=== PATIENT | female | born 1940 | race Caucasian/White ===

== ENCOUNTER → 2023-09-04 10:12 | Outpatient (REF) | payer MEDICARE, OTHER, SELFPAY | LOC: WOUND 10:12 | PROVIDERS: ATTENDING PHYSICIAN Surgery; REFERRING PHYSICIAN Internal Medicine Geriatric Medicine | DX: I87.311 Chronic venous hypertension (idiopathic) with ulcer of right lower extremity (principal); L97.812 Non-pressure chronic ulcer of other part of right lower leg with fat layer exposed; I87.2 Venous insufficiency (chronic) (peripheral); I48.19 Other persistent atrial fibrillation; Z86.73 Personal history of transient ischemic attack (TIA), and cerebral infarction without residual deficits; Z79.01 Long term (current) use of anticoagulants; R73.03 Prediabetes; N18.31 Chronic kidney disease, stage 3a; I77.0 Arteriovenous fistula, acquired; I50.32 Chronic diastolic (congestive) heart failure; I13.0 Hypertensive heart and chronic kidney disease with heart failure and stage 1 through stage 4 chronic kidney disease, or unspecified chronic kidney disease | CPT/HCPCS: 97597 ==

== ENCOUNTER → 2023-09-14 12:55 | Outpatient (REF) | payer MEDICARE, OTHER, SELFPAY | LOC: RAD 12:55 | PROVIDERS: ATTENDING PHYSICIAN Nurse Practitioner Family; FAMILY PHYSICIAN Internal Medicine Geriatric Medicine | DX: M79.604 Pain in right leg (principal) | CPT/HCPCS: 93922; 93925; 93970 ==

== ENCOUNTER → 2023-09-18 10:54 | Outpatient (REF) | payer MEDICARE, OTHER, SELFPAY | LOC: WOUND 10:54 | PROVIDERS: ATTENDING PHYSICIAN Surgery; FAMILY PHYSICIAN Internal Medicine Geriatric Medicine | DX: L97.812 Non-pressure chronic ulcer of other part of right lower leg with fat layer exposed (principal); L97.822 Non-pressure chronic ulcer of other part of left lower leg with fat layer exposed; L03.116 Cellulitis of left lower limb; I48.19 Other persistent atrial fibrillation; Z86.73 Personal history of transient ischemic attack (TIA), and cerebral infarction without residual deficits; Z79.01 Long term (current) use of anticoagulants; R73.03 Prediabetes; N18.31 Chronic kidney disease, stage 3a; I50.32 Chronic diastolic (congestive) heart failure; I12.9 Hypertensive chronic kidney disease with stage 1 through stage 4 chronic kidney disease, or unspecified chronic kidney disease | CPT/HCPCS: 11042 ==

== ENCOUNTER → 2023-10-02 09:52 | Outpatient (REF) | payer MEDICARE, OTHER, SELFPAY | LOC: WOUND 09:52 | PROVIDERS: ATTENDING PHYSICIAN Surgery; FAMILY PHYSICIAN Internal Medicine Geriatric Medicine | DX: L03.116 Cellulitis of left lower limb (principal); L97.812 Non-pressure chronic ulcer of other part of right lower leg with fat layer exposed; L97.822 Non-pressure chronic ulcer of other part of left lower leg with fat layer exposed; I48.19 Other persistent atrial fibrillation; Z86.73 Personal history of transient ischemic attack (TIA), and cerebral infarction without residual deficits; Z79.01 Long term (current) use of anticoagulants; R73.03 Prediabetes; N18.31 Chronic kidney disease, stage 3a; I77.0 Arteriovenous fistula, acquired; I50.32 Chronic diastolic (congestive) heart failure; I12.9 Hypertensive chronic kidney disease with stage 1 through stage 4 chronic kidney disease, or unspecified chronic kidney disease | CPT/HCPCS: 99212 ==

== ENCOUNTER → 2024-01-10 10:14 | Outpatient (REF) | payer MEDICARE, OTHER, SELFPAY ==
[2024-01-10 11:58] LABS: Hematocrit 38.1 % (37.0-47.0); Hemoglobin 12.3 g/dL (12.0-16.0); Mean Corp Hgb Conc. 32.3 g/dL (33.0-37.0); Mean Corpuscular Hgb 31.5 pg (27.0-31.0); Mean Corpuscular Volume 97.4 fL (81.0-99.0); Mean Platelet Volume 10.1 fL (7.4-10.4); Platelet Count 172 10^3/uL (130-400); Red Blood Cell Count 3.91 10^6/uL (4.20-5.40); Red Cell Dist. Width 13.9 % (11.5-14.5); White Blood Cell Count 6.7 10^3/uL (4.8-10.8)
[2024-01-10 12:11] LABS: ALT (SGPT) 18 U/L (0-35); AST (SGOT) 32 U/L (14-36); Albumin 3.7 g/dl (3.5-5.0); Alkaline Phosphatase 107 U/L (38-126); Blood Urea Nitrogen 31 mg/dl (7-17); Calcium 9.5 mg/dl (8.4-10.2); Carbon Dioxide 27 mmol/L (22-30); Chloride 103 mmol/L (98-107); Glucose 75 mg/dl (70-99); Potassium 4.7 mmol/L (3.5-5.1); Sodium 137 mmol/L (135-145); Total Bilirubin 0.9 mg/dl (0.2-1.3); Total Protein 6.2 g/dl (6.3-8.2); eGFR > 60.00
[2024-01-10 14:00] LABS: Glycohemoglobin (HgbA1c) 5.6 % (4.0-5.6)
== END ==
LOC: OLABP 10:14
PROVIDERS: ATTENDING PHYSICIAN Internal Medicine
DX: F03.90 Unspecified dementia, unspecified severity, without behavioral disturbance, psychotic disturbance, mood disturbance, and anxiety (principal); I10 Essential (primary) hypertension; Z79.899 Other long term (current) drug therapy
CPT/HCPCS: 36415; 80053; 83036; 85027

== ENCOUNTER 2024-01-27 06:37 | Emergency (ER) | payer MEDICARE, OTHER, SELFPAY ==
[2024-01-27 06:39] VITALS: BP 136/54
[2024-01-27 07:00] VITALS: BP 111/67
--- NOTE | 2024-01-27 08:12 | ED.MUSCINJ ---
HPI-Injury
General
Chief Complaint: Fall
Source: patient
Exam Limitations: none
Time Seen by Provider: 01/27/24 08:01
Travel History
Have you had any contact with someone who has COVID-19?: No
Do you have any symptoms of coronavirus? Fever > 100 degrees, chills, cough, shortness of breath, sore throat, loss of taste or smell, muscle aches, or headache?: No
History of Present Illness-Injury
Initial Injury comments:
83-year-old female with history of dementia on Eliquis for A-fib sent after a fall sometime last night. She complains of pain and burning to the right elbow as well as significant swelling to the right elbow right hand and questionable head strike.
She denies neck pain. No chest pain or shortness of breath. She states she has been unsteady on her feet but is not new. No other this time
Past History
Past History
ED Past Medical History: Arrthythmia, CHF, CVA, GERD, Hypothyroidism and Other
ED Past Surgical History: Gynecological (Hysterectomy)
Social History
Tobacco: Non-smoker
Alcohol: Occasional
Drug: None
Personal:
Living: alone
Employment: Retired
Phy Exam
Physical Exam
Physical Exam:
General: Well-appearing female no acute respiratory distress
HEENT: Normocephalic atraumatic
Heart: Irregular rate and rhythm
Lungs: Clear no wheeze
Musculoskeletal exam: Right elbow with large hematoma. She is tender over the proximal volar forearm with significant hematoma. The elbow itself good range of motion including pronation and supination. The right hand is slightly tender to the
dorsal aspect of the hand spine nontender
Neurologic: Alert oriented to person and place
Injury Course
Orders/Labs/Results
Orders:
Orders
01/27/24 06:48
Elbow, 3 View, Right [CR Elbow - Right Min 3 Views] Urgent
Comment:
Reason For Exam: injury
01/27/24 07:[address] [CT Head W/o Iv Contrast] Urgent
Comment:
Reason For Exam: fall on eliquis
01/27/24 08:09
CR Hand - Right Min 3 Views Urgent
Comment:
Reason For Exam: fall, pain
MDM/Problems Addressed
Differential Diagnosis Includes:
Fall. Hematoma right elbow. X-ray right elbow reviewed to evaluate for any possible fracture or dislocation. There is no acute bony abnormality noted on the elbow x-ray. Right hand x-rays are pending CT of the head is pending.
*Critical Care Note
Total Time (30-74mins, 75-104mins- exclusive of procedures): Not Applicable
Update Note
Update Note:
CT head negative x-ray right hand also negative. Patient has hematoma to the right elbow. Will apply Isael bandage. Compartments are soft no sign of compartment syndrome. She has a good pulse to the wrist. No indication for admission discharge
back to facility
ED Attending Note
-
Portions of this chart may have been created with voice recognition software.� Occasional wrong word or��sound alike� substitutions may have occurred due to the inherent limitations of voice recognition software.
Discharge Plan
Departure
Patient Disposition: Home (Routine Discharge)
Date of Disposition: 01/27/24
Time of Disposition: 09:44
Patient with high blood pressure during this ER visit?: No
Discharge Problem:
Hematoma
Instructions: Contusion (DC)
Prescriptions:
No Action
diltiazem HCl 120 MG capsule,extended release 24hr
120 mg PO HS Qty: 1 0RF
metoprolol succinate 100 MG tablet extended release 24 hr
100 mg PO BID Qty: 1 0RF
Patient Comments:
hold if SBP < 120
Rx Instructions:
hold if SBP < 120
levothyroxine 88 MCG tablet
88 mcg PO DAILY
warfarin [Jantoven] 2 MG tablet
4 mg PO HS
torsemide 20 MG tablet
40 mg PO MOWEFR
acetaminophen [Tylenol Extra Strength] 500 MG tablet
500 mg PO BIDPRN PRN (Reason: mild pain)
calcium carbonate 600 MG tablet
600 mg PO DAILY
lisinopril 5 MG tablet
5 mg PO DAILY
torsemide 20 MG tablet
20 mg PO SUTUTHSA
docusate sodium 100 MG capsule
100 mg PO BID 0RF
oxycodone 5 MG tablet
5 mg PO Q6HPRN PRN (Reason: Mod Sev Pain) Qty: 15 0RF
Referrals:
GUIDO SANFORD, [Family Provider] -
Activity Restrictions/Additional Instructions:
Keep ice on the elbow. Return for worsening symptoms otherwise follow-up with family doctor
Interventions
Interventions:
*Risk Screen - Suicide Last Done: 01/27/24 06:39
*General Assessment Last Done: 01/27/24 06:39
*Neglect/Abuse Screening Last Done: 01/27/24 09:12
*ED COVID-19 Vaccine History Last Done: 01/27/24 08:05
ED-Musculoskeletal Assessment Last Done: 01/27/24 08:15
ED- Neurological Assessment Last Done: 01/27/24 07:52
ED-Skin Assessment Last Done: 01/27/24 07:50
Discharge Date and Time
Print Language: MACEDONIAN
== END 2024-01-27 12:39 | disposition home or self-care (01) ==
LOC: EMR 06:37
PROVIDERS: EMERGENCY PHYSICIAN Emergency Medicine; FAMILY PHYSICIAN Internal Medicine
DX: S50.11XA Contusion of right forearm, initial encounter (principal); S50.01XA Contusion of right elbow, initial encounter; W19.XXXA Unspecified fall, initial encounter; R26.81 Unsteadiness on feet; F03.90 Unspecified dementia, unspecified severity, without behavioral disturbance, psychotic disturbance, mood disturbance, and anxiety; I48.91 Unspecified atrial fibrillation; K21.9 Gastro-esophageal reflux disease without esophagitis; E03.9 Hypothyroidism, unspecified; I50.9 Heart failure, unspecified; Z86.73 Personal history of transient ischemic attack (TIA), and cerebral infarction without residual deficits; Z79.01 Long term (current) use of anticoagulants; Z88.8 Allergy status to other drugs, medicaments and biological substances
CPT/HCPCS: 99284; 70450; 73080; 73130

== ENCOUNTER → 2024-02-05 12:36 | Outpatient (REF) | payer MEDICARE, OTHER, SELFPAY | LOC: WOUND 12:36 | PROVIDERS: ATTENDING PHYSICIAN Surgery; FAMILY PHYSICIAN Internal Medicine | DX: L97.812 Non-pressure chronic ulcer of other part of right lower leg with fat layer exposed (principal); L97.412 Non-pressure chronic ulcer of right heel and midfoot with fat layer exposed; L97.222 Non-pressure chronic ulcer of left calf with fat layer exposed; L97.322 Non-pressure chronic ulcer of left ankle with fat layer exposed; S50.11XA Contusion of right forearm, initial encounter; Z86.73 Personal history of transient ischemic attack (TIA), and cerebral infarction without residual deficits; I50.20 Unspecified systolic (congestive) heart failure; I48.19 Other persistent atrial fibrillation; X58.XXXA Exposure to other specified factors, initial encounter | CPT/HCPCS: 11042; 99214 ==

== ENCOUNTER → 2024-02-12 11:05 | Outpatient (REF) | payer MEDICARE, OTHER, SELFPAY | LOC: WOUND 11:05 | PROVIDERS: ATTENDING PHYSICIAN Surgery; FAMILY PHYSICIAN Internal Medicine | DX: L97.812 Non-pressure chronic ulcer of other part of right lower leg with fat layer exposed (principal); L97.412 Non-pressure chronic ulcer of right heel and midfoot with fat layer exposed; L97.222 Non-pressure chronic ulcer of left calf with fat layer exposed; L97.322 Non-pressure chronic ulcer of left ankle with fat layer exposed; S50.11XA Contusion of right forearm, initial encounter; I50.20 Unspecified systolic (congestive) heart failure; I48.19 Other persistent atrial fibrillation; Z86.73 Personal history of transient ischemic attack (TIA), and cerebral infarction without residual deficits; W19.XXXA Unspecified fall, initial encounter | CPT/HCPCS: 11042 ==

== ENCOUNTER → 2024-02-21 10:19 | Outpatient (REF) | payer MEDICARE, OTHER, SELFPAY | LOC: WOUND 10:19 | PROVIDERS: ATTENDING PHYSICIAN Surgery | DX: L97.812 Non-pressure chronic ulcer of other part of right lower leg with fat layer exposed (principal); L97.412 Non-pressure chronic ulcer of right heel and midfoot with fat layer exposed; L97.222 Non-pressure chronic ulcer of left calf with fat layer exposed; L97.322 Non-pressure chronic ulcer of left ankle with fat layer exposed; S50.11XA Contusion of right forearm, initial encounter; I50.20 Unspecified systolic (congestive) heart failure; I48.19 Other persistent atrial fibrillation; Z86.73 Personal history of transient ischemic attack (TIA), and cerebral infarction without residual deficits; W19.XXXA Unspecified fall, initial encounter | CPT/HCPCS: 11042 ==

== ENCOUNTER → 2024-02-27 10:16 | Outpatient (REF) | payer MEDICARE, OTHER, SELFPAY | LOC: WOUND 10:16 | PROVIDERS: ATTENDING PHYSICIAN Surgery; FAMILY PHYSICIAN Internal Medicine | DX: L97.812 Non-pressure chronic ulcer of other part of right lower leg with fat layer exposed (principal); L97.412 Non-pressure chronic ulcer of right heel and midfoot with fat layer exposed; L97.222 Non-pressure chronic ulcer of left calf with fat layer exposed; L97.322 Non-pressure chronic ulcer of left ankle with fat layer exposed; S50.11XA Contusion of right forearm, initial encounter; I50.20 Unspecified systolic (congestive) heart failure; I48.19 Other persistent atrial fibrillation; Z86.73 Personal history of transient ischemic attack (TIA), and cerebral infarction without residual deficits | CPT/HCPCS: 29580 ==

== ENCOUNTER → 2024-03-05 10:09 | Outpatient (REF) | payer MEDICARE, OTHER, SELFPAY | LOC: WOUND 10:09 | PROVIDERS: ATTENDING PHYSICIAN Surgery; FAMILY PHYSICIAN Internal Medicine Geriatric Medicine | DX: L97.812 Non-pressure chronic ulcer of other part of right lower leg with fat layer exposed (principal); L97.412 Non-pressure chronic ulcer of right heel and midfoot with fat layer exposed; L97.222 Non-pressure chronic ulcer of left calf with fat layer exposed; L97.322 Non-pressure chronic ulcer of left ankle with fat layer exposed; S50.11XA Contusion of right forearm, initial encounter; Z86.73 Personal history of transient ischemic attack (TIA), and cerebral infarction without residual deficits; I50.20 Unspecified systolic (congestive) heart failure; I48.19 Other persistent atrial fibrillation; X58.XXXA Exposure to other specified factors, initial encounter | CPT/HCPCS: 29580 ==

== ENCOUNTER → 2024-03-13 10:23 | Outpatient (REF) | payer MEDICARE, OTHER, SELFPAY | LOC: WOUND 10:23 | PROVIDERS: ATTENDING PHYSICIAN Surgery; FAMILY PHYSICIAN Internal Medicine | DX: L97.812 Non-pressure chronic ulcer of other part of right lower leg with fat layer exposed (principal); L97.412 Non-pressure chronic ulcer of right heel and midfoot with fat layer exposed; L97.222 Non-pressure chronic ulcer of left calf with fat layer exposed; L97.322 Non-pressure chronic ulcer of left ankle with fat layer exposed; S50.11XA Contusion of right forearm, initial encounter; X58.XXXA Exposure to other specified factors, initial encounter | CPT/HCPCS: 11042 ==

== ENCOUNTER → 2024-03-20 11:30 | Outpatient (REF) | payer MEDICARE, OTHER, SELFPAY | LOC: WOUND 11:30 | PROVIDERS: ATTENDING PHYSICIAN Surgery; FAMILY PHYSICIAN Internal Medicine Geriatric Medicine | DX: L97.812 Non-pressure chronic ulcer of other part of right lower leg with fat layer exposed (principal); L97.412 Non-pressure chronic ulcer of right heel and midfoot with fat layer exposed; L97.222 Non-pressure chronic ulcer of left calf with fat layer exposed; L97.322 Non-pressure chronic ulcer of left ankle with fat layer exposed; S50.11XA Contusion of right forearm, initial encounter; I50.20 Unspecified systolic (congestive) heart failure; I48.19 Other persistent atrial fibrillation; Z86.73 Personal history of transient ischemic attack (TIA), and cerebral infarction without residual deficits; W19.XXXA Unspecified fall, initial encounter | CPT/HCPCS: 99213 ==

== ENCOUNTER 2024-03-20 12:04 | Emergency (ER) | payer MEDICARE, OTHER, SELFPAY ==
[2024-03-20 12:08] VITALS: BP 125/80
[2024-03-20 12:40] LABS: % Basophils 1.4 % (0-2); % Eosinophils 3.6 % (0-6); % Immature Granulocytes 0.5 % (0-0.5); % Lymphocytes 12.9 % (20.5-51.1); % Monocytes 11.4 % (1.7-9.3); % Neutrophils 70.2 % (42.2-75.2); Absolute Basophils 0.1 10^3/uL (0-0.2); Absolute Eosinophils 0.3 10^3/uL (0-0.7); Absolute Lymphocytes 1.1 10^3/uL (1.2-3.4); Absolute Neutrophils 6.1 10^3/uL (1.4-6.5); Hematocrit 40.5 % (37.0-47.0); Hemoglobin 13.5 g/dL (12.0-16.0); Mean Corp Hgb Conc. 33.3 g/dL (33.0-37.0); Mean Corpuscular Hgb 30.7 pg (27.0-31.0); Mean Platelet Volume 9.2 fL (7.4-10.4); Nucleated Red Blood Cells % 0 %; Platelet Count 259 10^3/uL (130-400); Red Cell Dist. Width 14.6 % (11.5-14.5); White Blood Cell Count 8.7 10^3/uL (4.8-10.8)
[2024-03-20 13:08] VITALS: BP 119/78
--- NOTE | 2024-03-20 13:18 | ED.GENMED ---
History of Present Illness
General
Chief Complaint: Breathing Problem
Source: patient
Exam Limitations: none
Time Seen by Provider: 03/20/24 13:08
History of Present Illness
History of Present Illness:
See MDM
Past History
Past History
ED Past Medical History: Arrthythmia, CHF, CVA, GERD, Hypothyroidism and Other
ED Past Surgical History: Gynecological (Hysterectomy)
Social History
Tobacco: Non-smoker
Alcohol: Occasional
Drug: None
Personal:
Living: alone
Employment: Retired
Phy Exam
Physical Exam
Physical Exam:
See MDM
Scores
Heart Failure Risk
Heart Failure Risk Score: Yes
History of Stroke or TIA: No
History of intubation for respiratory distress: No
Heart rate on ED arrival >/= 110: No
SaO2 <90% on arrival on room air: No
HR >/=110 during 3min walk test (or too ill to perform test): No
ECG has acute ischemic changes: No
Urea >/=12mmol/L (BUN 33.6mg/dL): No
Serum CO2>/=35mmol/L: No
Troponin I or T elevated to CA Level (0.4mg/dL): No
NT-proBNP >/=5,000ng/L (5,000pg/ml): No
HF Risk Score: 0
Admission Status: LOW RISK 2.8% Consider discharge to home with f/u visit to PCP/Agent Producer
Course
Orders/Labs/Results
Orders:
Orders
03/20/24 12:11
Electrocardiogram (*1) Urgent
Reason for Study: Shortness of Breath
EKG- Treatment ONCE
03/20/24 12:28
Complete Blood Count/With Diff Urgent
03/20/24 13:08
Comprehensive Metabolic Panel Urgent
NT-proBNP Urgent
Troponin I Urgent
03/20/24 13:20
Prothrombin Time Urgent
03/20/24 14:08
CR Chest - 2 Views Urgent
Comment:
Reason For Exam: SOB
Abnormal Lab Results
03/20/24 03/20/24
12:28 13:08
RDW 14.6 H %
(11.5-14.5)
Absolute Lymphs (auto) 1.1 L 10^3/uL
(1.2-3.4)
Absolute Monos (auto) 1.0 H 10^3/uL
(0.1-0.6)
Lymphocytes % 12.9 L %
(20.5-51.1)
Monocytes % 11.4 H %
(1.7-9.3)
BUN 30 H mg/dl
(7-17)
AST 85 H U/L
(14-36)
ALT 57 H U/L
(0-35)
Alkaline Phosphatase 166 H U/L
(38-126)
03/20/24 12:28
03/20/24 13:08
Vital Signs
Initial and Last Documented VS:
Initial Vital Signs
Temp Pulse Resp BP Pulse Ox
97.8 F 93 16 125/80 94
03/20/24 12:08 03/20/24 12:08 03/20/24 12:08 03/20/24 12:08 03/20/24 12:08
Last Documented Vital Signs
Temp Pulse Resp BP Pulse Ox
97.8 F 120 24 114/93 94
03/20/24 12:08 03/20/24 14:30 03/20/24 14:30 03/20/24 14:00 03/20/24 13:49
MDM/Problems Addressed
Differential Diagnosis Includes:
HPI and MDM Narrative:
83-year-old female presenting for evaluation of bilateral leg swelling and shortness of breath. She was at her routine wound care appointment and she was found to have clear leaking in both legs and she was short of breath. She was sent in for
further evaluation
Currently at rest laying flat, she is denying any shortness of breath. She denies any chest pain.
We do long discussion indicating likely CHF exacerbation. I had mentioned admission but patient is leaning towards discharge. Will obtain chest x-ray and basic blood work to rule out any significant abnormality before considering discharge home
Patient is not
Physical exam
General: Well appearing and non-toxic
HEENT: protecting airway
Neck: appears supple
CV: No evidence of cyanosis. Irregular rhythm
Resp: No accessory muscle use. Lungs appear clear
Abd: Non-distended
Extremities: +2 pitting edema bilateral lower extremities. Sensation and pulses intact
Neuro: alert
Psych: Normal affect
Skin: Intact
Problems Addressed including Acute and Chronic Conditions affecting care:
1. CHF exacerbation
Acuity: acute
Prognosis: stable
Details: Currently, patient does not require increased oxygenation. She is comfortable on room air. Will obtain chest x-ray and basic blood work before considering discharge home with increased Lasix
Updates
Chest x-ray consistent with mild pulmonary edema. Patient ambulated without difficulty and without hypoxia. I did suggest admission but patient wants to be discharged. She understands return precautions
Differential Diagnosis (but not limited to): CHF exacerbation, pulmonary edema, pneumonia
Testing considered: D-dimer but patient is compliant with Coumadin. Will obtain INR
Drug therapy (if applicable): OTC meds, please see d/c instruction regarding Rx drugs
Amount and/or Complexity of Data Reviewed
Clinical info obtained from: Patient
External data reviewed: N/A
Labs I independently reviewed (but not limited to): Elevated BNP well, normal troponin
Radiology: X-ray independently reviewed: Chest x-ray consistent with cardiomegaly and mild pulmonary edema
Pulse Ox: not hypoxic
EKG independently reviewed: A-fib, left axis, no STEMI
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
Critical Care: N/A
Risk of Complication:
Social Determinants of health: Good social support
Discussed with other providers: N/A
Escalation of Care includes Admit/Obs: After being observed in the Emergency Department, pt stable for discharge.
Occasional wrong word or 'sound a like' substitutions may have occurred due to the inherent limitations of voice recognition software. Read the chart carefully and recognize, using context, where substitutions have occurred.
*Critical Care Note
Total Time (30-74mins, 75-104mins- exclusive of procedures): Not Applicable
ED Attending Note
-
Portions of this chart may have been created with voice recognition software.� Occasional wrong word or��sound alike� substitutions may have occurred due to the inherent limitations of voice recognition software.
Discharge Plan
Departure
Patient Disposition: Home (Routine Discharge)
Date of Disposition: 03/20/24
Time of Disposition: 15:24
Patient with high blood pressure during this ER visit?: No
Discharge Problem:
CHF exacerbation
Instructions: *DCA Heart Failure Instructions
Prescriptions:
No Action
levothyroxine 88 MCG tablet
88 mcg PO DAILY
torsemide 20 MG tablet
20 mg PO DAILY
acetaminophen [Tylenol Extra Strength] 500 MG tablet
1,000 mg PO TIDPRN PRN (Reason: mild pain)
calcium carbonate 600 MG tablet
600 mg PO DAILY
magnesium hydroxide [Milk of Magnesia] 400 mg/5 mL Suspension
400 mg PO [id number] PRN (Reason: constipation)
bisacodyl [Dulcolax (bisacodyl)] 10 mg Suppository
10 mg [place] DAILYPRN PRN (Reason: if no bm on 5th day or aftr mom)
Fleet Enema 19-7 gram/118 mL Enema
118 ml [place] DAILYPRN PRN (Reason: if no bm on 6th day)
midodrine 2.5 mg Tablet
2.5 mg PO BID
metoprolol tartrate 25 mg Tablet
12.5 mg PO BID
Referrals:
Charles Rodriguez MD [Family Provider] -
Activity Restrictions/Additional Instructions:
Starting tomorrow, please take double the amount of Lasix. Instead of taking 20 mg of Lasix, please take 40 mg of Lasix. Do this for 3 days.
Please return for any worsening symptoms.
You may return at any time if you have further concerns.
Please follow up with your doctor at the first available appointment, preferably this week.
You were placed on the cardiac callback tracker. Someone from their office should call you in the next few days. If you do not hear from them in the next few days, please give them a call.
Thank you for choosing [facility].
Interventions
Interventions:
*Risk Screen - Suicide Last Done: 03/20/24 12:10
*General Assessment Last Done: 03/20/24 12:10
*Neglect/Abuse Screening Last Done: 03/20/24 12:10
ED- Fall Risk Assessment Last Done: 03/20/24 13:49
*ED COVID-19 Vaccine History Last Done: 03/20/24 13:49
ED- Cardiac Assessment Last Done: 03/20/24 13:49
ED- Pulmonary Assessment Last Done: 03/20/24 13:49
ED-Skin Assessment Last Done: 03/20/24 13:49
Discharge Date and Time
Print Language: SERBIAN
[2024-03-20 13:35] LABS: ALT (SGPT) 57 U/L (0-35); AST (SGOT) 85 U/L (14-36); Albumin 4.1 g/dl (3.5-5.0); Alkaline Phosphatase 166 U/L (38-126); Blood Urea Nitrogen 30 mg/dl (7-17); Calcium 9.7 mg/dl (8.4-10.2); Carbon Dioxide 30 mmol/L (22-30); Chloride 103 mmol/L (98-107); Glucose 93 mg/dl (70-99); Potassium 4.2 mmol/L (3.5-5.1); Sodium 136 mmol/L (135-145); Total Bilirubin 0.9 mg/dl (0.2-1.3); Total Protein 6.8 g/dl (6.3-8.2); eGFR > 60.00
[2024-03-20 13:39] LABS: INR 0.99; PT 13.1 Sec (11.4-14.6)
[2024-03-20 13:46] LABS: NT-proBNP 2250 pg/ml; Troponin I < 0.012 ng/ml
[2024-03-20 14:00] VITALS: BP 114/93
[2024-03-20 15:00] VITALS: BP 114/74
[2024-03-20] MEDS: LASIX 40 MG IV (15:36)
== END 2024-03-20 15:43 | disposition home or self-care (01) ==
LOC: EMR 12:04
PROVIDERS: Emergency Medicine; EMERGENCY PHYSICIAN Student in an Organized Health Care Education/Training Program; FAMILY PHYSICIAN Internal Medicine Geriatric Medicine
DX: I50.9 Heart failure, unspecified (principal); E03.9 Hypothyroidism, unspecified; K21.9 Gastro-esophageal reflux disease without esophagitis; Z86.73 Personal history of transient ischemic attack (TIA), and cerebral infarction without residual deficits; Z90.710 Acquired absence of both cervix and uterus
CPT/HCPCS: 99283; 96374; 71046; 80053; 83880; 84484; 85025; 85610; 93005

== ENCOUNTER → 2024-03-27 11:23 | Outpatient (REF) | payer MEDICARE, OTHER, SELFPAY | LOC: WOUND 11:23 | PROVIDERS: ATTENDING PHYSICIAN Surgery; FAMILY PHYSICIAN Internal Medicine | DX: L97.812 Non-pressure chronic ulcer of other part of right lower leg with fat layer exposed (principal); L97.412 Non-pressure chronic ulcer of right heel and midfoot with fat layer exposed; L97.222 Non-pressure chronic ulcer of left calf with fat layer exposed; L97.322 Non-pressure chronic ulcer of left ankle with fat layer exposed; I50.20 Unspecified systolic (congestive) heart failure; I48.19 Other persistent atrial fibrillation; S50.11XA Contusion of right forearm, initial encounter; X58.XXXA Exposure to other specified factors, initial encounter; Z86.73 Personal history of transient ischemic attack (TIA), and cerebral infarction without residual deficits | CPT/HCPCS: 29581; 99213 ==

== ENCOUNTER 2024-03-31 10:54 | Inpatient (IN) | payer MEDICARE, OTHER, SELFPAY ==
[2024-03-31 07:12] VITALS: BP 102/61
--- NOTE | 2024-03-31 07:48 | ED.GENMED ---
History of Present Illness
General
Chief Complaint: Change in Mental Status
Source: patient and ambulance crew
Exam Limitations: none
Time Seen by Provider: 03/31/24 07:37
History of Present Illness
History of Present Illness:
83-year-old female presents emergency department due to altered mental status. She was found slumped in a chair this morning. EMS reported minimal conversational lethargy. Staff reports she is usually conversant.
Past History
Past History
ED Past Medical History: Arrthythmia, CHF, CVA, GERD, Hypothyroidism and Other
ED Past Surgical History: Gynecological (Hysterectomy)
Social History
Tobacco: Non-smoker
Alcohol: Occasional
Drug: None
Personal:
Living: alone
Employment: Retired
Review of Systems
Review of Systems
Allergies reviewed?: Yes
Unable to obtain full review of systems at this time due to: dementia
All Other Systems: Not applicable
Phy Exam
Physical Exam
Physical Exam:
Physical Exam
General: Afebrile
Neck: supple. no meningeal signs. normal posterior pharynx
Heart: s1/s2 tachycardia, irregular rhythm, no murmur. equal radial
pulses.
HEENT: Pupils equal round reactive to light, EOMI
Lungs: no acute respiratory distress. clear bilaterally
Abdomen: normal bowel sounds. not tender. no CVAT
Neuro: alert and oriented to person and place. no focal neurological deficits cranial nerves II through XII intact
Skin: no rash
Psychiatric: well kept. interactive and cooperative
Extremities: no edema. no calf tenderness. negative homans. good distal pulses
Course
Orders/Labs/Results
Orders:
Orders
03/31/24 07:17
ECG [Electrocardiogram (*1)] Urgent
Reason for Study: Other
Other Reason for Exam: change in mental status
Cardiac Monitoring- Treatment ONCE
EKG- Treatment ONCE
IV Insert/Care/Rem.- Treatment PRN
Straight cath- Treatment ONCE
03/31/24 07:36
Complete Blood Count/With Diff Urgent
Comprehensive Metabolic Panel Urgent
Lactic Acid Q4H
Comment: ON ICE, CANCEL 2ND ORDER IF FIRST LACTIC ACID LEVEL <2
Urinalysis Reflex To Culture Urgent
Date Specimen was Collected: 03/31/24
Time Specimen was Collected: 07:17
Urine Microscopic Reflex Cult Urgent
Urine Culture Urgent
AMBROCIO Source: U
Specimen Description:
Date Specimen was Collected: 03/31/24
Time Specimen was Collected: 07:17
03/31/24 07:48
CT Head W/o Iv Contrast Urgent
Comment:
Reason For Exam: altered mental status
03/31/24 08:48
CefTRIAXone [Rocephin] 1,000 mg IV NOW STA
03/31/24 09:53
Speech Screening from Janey Routine
03/31/24 Lunch
IDDSI 4 - Pureed
At Your Request: Full Participation
03/31/24 10:35
Admit/Transfer Patient As Directed
Co-Sign Provider:
Level of Care: Inpatient admission
Assign to:: Telemetry
Physician / Group: de la vega/hospitalist
Diagnosis: AMS/AFib rvr
Reason for Telemetry: Arrhythmia
Date to Stop Telemetry: 04/03/24
Time to Stop Telemetry: 11:00
Reason for Hospitalization: AMS/AFib rvr
Expected length of stay greater than two midnights?: Yes
ELOS- Estimated Length of Stay in days: 3
I certify the patient meets the requirements for IP care: Yes
Metoprolol [Lopressor] 50 mg PO NOW STA
PRN Pain Medication Management As Directed
May give lesser potent ordered pain med per pt: Yes
preference::
Protocol:: Medication orders for pain may be administered in a
manner that supports deferring to patient preference
when the pt is:
- Requesting an ordered lesser potent pain medication.
Least to most potent pain medications are defined
as: acetaminophen < NSAID < tramadol < opioids
(morphine, oxycodone, hydromorphone).
- Requesting a lesser dose of the same medication IF
ORDERED.
- Requesting a less intrusive route of administration
if both routes are prescribed by the provider (PO <
IV).
03/31/24 10:38
Code Status As Directed
Resuscitation Status: Do not resuscitate
Reached after discussion with pt or family/Healthcare POA: Yes
Physician note:: PER RAMON MORENO. ADVANCED DIRECTIVE-STATES DNR/DNI
03/31/24 10:44
DNR Bracelet Application ONCE
03/31/24 11:55
Acetaminophen [Tylenol] 650 mg PO Q4HPRN PRN
Apixaban [Eliquis] 2.5 mg PO BID
Bisacodyl [Dulcolax] 10 mg RECTAL [id number] PRN
Docusate W/Senna [Senokot-S] 1 tablet PO BIDPRN PRN
Metoprolol [Lopressor] 5 mg IV Q4HPRN PRN
Polyethylene Glycol Powder [Miralax] 17 grams PO DAILYPRN PRN
03/31/24 11:55
INFECTIOUS DISEASE CONSULT Routine
Consulting Provider: Kyrie May
Was physician already notified: Yes
WOUND/OSTOMY CONSULT Routine
Reason for Consult: b/l le lypmhedema
VTE Contraindication Routine
VTE Mechanical Device Contraindication: Edema of lower extremity
Pharmocologic Contraindication: Medical Contraindication
Activity As Directed
Activity Level: Out of Bed-Early Mobility
Vital Signs As Directed
Frequency: Per unit guidelines
Speech Therapy Eval & Treat Routine
03/31/24 20:00
Metoprolol [Lopressor] 50 mg PO BID
04/01/24 06:00
Basic Metabolic Panel IN AM
Complete Blood Count/With Diff IN AM
Levothyroxine [Synthroid] 88 mcg PO DAILY@0600
04/01/24 08:00
Atorvastatin [Lipitor] 20 mg PO DAILY
Calcium Carbonate [Oscal García 500] 500 mg PO DAILY
Torsemide [Demadex] 20 mg PO DAILY
04/01/24 10:00
CefTRIAXone [Rocephin] 1,000 mg IV Q24H
04/02/24 06:00
Basic Metabolic Panel IN AM
Complete Blood Count/With Diff IN AM
04/03/24 06:00
Basic Metabolic Panel IN AM
Complete Blood Count/With Diff IN AM
04/03/24 11:00
DC Protocol for Telemetry ONCE
Abnormal Lab Results
03/31/24
07:36
RBC 4.03 L 10^6/uL
(4.20-5.40)
Hct 36.4 L %
(37.0-47.0)
RDW 14.6 H %
(11.5-14.5)
Absolute Lymphs (auto) 0.9 L 10^3/uL
(1.2-3.4)
Absolute Monos (auto) 0.8 H 10^3/uL
(0.1-0.6)
Lymphocytes % 11.2 L %
(20.5-51.1)
Monocytes % 10.1 H %
(1.7-9.3)
BUN 45 H mg/dl
(7-17)
Glucose 112 H mg/dl
(70-99)
AST 45 H U/L
(14-36)
Alkaline Phosphatase 149 H U/L
(38-126)
Total Protein 6.1 L g/dl
(6.3-8.2)
Ur Occult Blood Reflex 1+ A
(Negative)
Urine Nitrite (Reflex) Positive A
(Negative)
Leukocyte Esterase Rfl 2+ A
(Negative)
Urine WBC (Reflex) 60-70 A /HPF
(0-5)
Urine Bacteria (Reflex) Many A
(Negative)
03/31/24 07:36
03/31/24 07:36
Vital Signs
Initial and Last Documented VS:
Initial Vital Signs
Temp Pulse Resp BP Pulse Ox
98.4 F 122 24 102/61 95
03/31/24 07:12 03/31/24 07:12 03/31/24 07:12 03/31/24 07:12 03/31/24 07:12
Last Documented Vital Signs
Temp Pulse Resp BP Pulse Ox
98.6 F 120 21 120/69 93
03/31/24 12:05 03/31/24 13:26 03/31/24 12:05 03/31/24 13:26 03/31/24 12:05
MDM/Problems Addressed
Differential Diagnosis Includes:
CVA, UTI, toxic metabolic encephalopathy
MDM/Problems Addressed:
83-year-old female with UTI, altered mental status. Admit to hospitalist.
Chronic conditions affecting care: Arrhythmia and Neurological disorder (Prior CVA)
Acute Exacerbation and/or Progression of Chronic Illness: Arrhythmia and Neurological disorder (Prior CVA)
*Radiology
Radiology exam reviewed: radiology read reviewed (CT head no acute findings)
*Pulse Oximetry
Patient hypoxic: no
*EKG
Interpreted by ED Provider?: Yes
EKG Intrepretation Date: 03/31/24
EKG Intrepretation Time: 07:19
Interpretation: abnormal
Comparison EKG: changes noted
Heart Rate: 115
Rate: tachycardiac
Rhythm: sinus tachycardia
[place]: normal axis
Interval: normal interval
QRS Pattern: normal QRS
Ischemia: non-specific ST changes
*Seam Press Operator Interpretation
Rate: tachycardiac
Interpretation: abnormal
Heart Rate: 110
Rhythm: sinus tachycardia
*Critical Care Note
Total Time (30-74mins, 75-104mins- exclusive of procedures): Not Applicable
Data Reviewed
Review of Other/Old Records Reveals: Testing (Echocardiogram on 12/09/2021 shows EF 49%)
Source: records
Patient Management
Social determinants of health affecting care: Living situation
Discussion with other providers: Hospitalist
Escalation/DeEscalation of care consider admission/obs:
Admit indicated
ED Attending Note
-
Portions of this chart may have been created with voice recognition software.� Occasional wrong word or��sound alike� substitutions may have occurred due to the inherent limitations of voice recognition software.
Discharge Plan
Departure
Patient Disposition: Admit
Date of Disposition: 03/31/24
Time of Disposition: 08:50
Admit to: Telemetry
Presentation/result/management discussed w/ accepting MD/DO: Hospitalist
Patient with high blood pressure during this ER visit?: Yes
Condition: Fair
Discharge Problem:
UTI (urinary tract infection), Altered mental status
Interventions
Interventions:
*Risk Screen - Suicide Last Done: 03/31/24 07:42
*General Assessment Last Done: 03/31/24 07:42
*Neglect/Abuse Screening Last Done: 03/31/24 07:42
ED- Fall Risk Assessment Last Done: 03/31/24 07:42
*ED COVID-19 Vaccine History Last Done: 03/31/24 07:42
*Nursing Disposition Last Done: 03/31/24 12:11
ED- Pulmonary Assessment Last Done: 03/31/24 07:42
ED- Neurological Assessment Last Done: 03/31/24 07:42
ED- Cardiac Assessment Last Done: 03/31/24 07:42
ED Swallowing Screen Last Done: 03/31/24 09:52
Discharge Date and Time
Discharge Date/Time: 03/31/24 12:11
[2024-03-31 07:51] LABS: % Basophils 1.6 % (0-2); % Eosinophils 3.2 % (0-6); % Immature Granulocytes 0.5 % (0-0.5); % Lymphocytes 11.2 % (20.5-51.1); % Monocytes 10.1 % (1.7-9.3); % Neutrophils 73.4 % (42.2-75.2); Absolute Basophils 0.1 10^3/uL (0-0.2); Absolute Eosinophils 0.3 10^3/uL (0-0.7); Absolute Lymphocytes 0.9 10^3/uL (1.2-3.4); Absolute Monocytes 0.8 10^3/uL (0.1-0.6); Hematocrit 36.4 % (37.0-47.0); Hemoglobin 12.1 g/dL (12.0-16.0); Mean Corp Hgb Conc. 33.2 g/dL (33.0-37.0); Mean Corpuscular Volume 90.3 fL (81.0-99.0); Mean Platelet Volume 9.3 fL (7.4-10.4); Nucleated Red Blood Cells % 0 %; Platelet Count 239 10^3/uL (130-400); Red Blood Cell Count 4.03 10^6/uL (4.20-5.40); Red Cell Dist. Width 14.6 % (11.5-14.5); White Blood Cell Count 8.2 10^3/uL (4.8-10.8)
[2024-03-31 07:52] LABS: Urine Albumin Trace (Neg - Trace); Urine Bilirubin Negative (Negative); Urine Character Very Cloudy (Clear); Urine Color Yellow; Urine Glucose Negative (Negative); Urine Ketone Negative (Negative); Urine Leukocyte 2+ (Negative); Urine Nitrite Positive (Negative); Urine Occult Blood 1+ (Negative); Urine Urobilinogen Negative (Neg - 1+)
[2024-03-31 07:59] LABS: ALT (SGPT) 24 U/L (0-35); AST (SGOT) 45 U/L (14-36); Albumin 3.5 g/dl (3.5-5.0); Alkaline Phosphatase 149 U/L (38-126); Blood Urea Nitrogen 45 mg/dl (7-17); Calcium 9.4 mg/dl (8.4-10.2); Carbon Dioxide 25 mmol/L (22-30); Chloride 105 mmol/L (98-107); Glucose 112 mg/dl (70-99); Lactic Acid 1.1 mmol/L (0.7-2.0); Potassium 4.8 mmol/L (3.5-5.1); Sodium 137 mmol/L (135-145); Total Bilirubin 0.8 mg/dl (0.2-1.3); Total Protein 6.1 g/dl (6.3-8.2); eGFR 55.21
[2024-03-31 08:05] LABS: Urine Bacteria Many (Negative)
[2024-03-31 08:06] LABS: Urine Red Blood Cell 0-2 /HPF (0-2); Urine White Cell 60-70 /HPF (0-5)
--- NOTE | 2024-03-31 08:21 | PHANOTE ---
med rec evens(03/31/24)-Called aneesh rousseau, they stated that despite the medication list printing on 01/17/2024, it is still an accurate list today.
[2024-03-31 09:40] VITALS: BP 118/60
[2024-03-31] MEDS: ROCEPHIN 1000 MG IV (09:49)
--- NOTE | 2024-03-31 10:49 | HPS.HSE ---
Family Physician
-
Family Physician: Yair Bello MD
Chief Complaint
-
AMS
History of Present Illness
83 female past medical history of dementia is presenting from [facility] with complaints from nursing facility for altered mental status. Patient with history of dementia and history was obtained from medical records and EMS notes. EMS notes were
reviewed completely and patient was found to be confused sitting in chair. Per discussion with patient's son, he thought after talking to patient yesterday evening patient was more confused compared to baseline. During my evaluation patient is
awake and remains confused. However moving all 4 extremities and wants to return back to [facility] as soon as possible. In the ER patient was found to have atrial fibrillation with rapid ventricular response. Suspicion for urinary tract infection
was started on antibiotics.
Medical History
Past Medical History
Past Medical History: Reports Other
Additional Past Medical History:
Vascular dementia
Hyperlipidemia
A-fib persistent
Chronic lymphedema bilateral lower extremities
Hypothyroidism
History of TIA/CVA
History of GI bleed
CKD stage IIIa
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
Past Surgical History: Reports Other
Additional Past Surgical History:
Bilateral knee replacement
Right shoulder repair
percutaneous pinning of L subcapital femoral fracture
Social History
Unable to obtain full social history at this time due to: Dementia
Family History
Family History: Unable to Obtain (Due to dementia)
Allergies / Home Medications
Allergies reflects when Allergies were last updated in [employer].
Home Medications with original date entered in [facility]
Allergy/Medication List:
Allergies
Allergy/AdvReac Type Severity Reaction Status Date / Time
amiodarone [Amiodarone] Allergy Shortness Verified 03/31/24 07:16
of Breath
Home Medications
levothyroxine 88 mcg tablet 88 mcg PO DAILY 07/13/20
calcium carbonate 600 mg PO DAILY 09/17/20
torsemide 20 mg tablet 20 mg PO DAILY 09/17/20
bisacodyl 10 mg rectal suppository (Dulcolax (bisacodyl)) 10 mg FL DAILYPRN PRN if no bm on 5th day or aftr mom 03/20/24
magnesium hydroxide 400 mg/5 mL oral suspension (Milk of Magnesia) 400 mg PO [id number] PRN constipation,3 days no bm 03/20/24
sodium phosphates 19 gram-7 gram/118 mL enema (Fleet Enema) 118 ml FL DAILYPRN PRN no bm 6 days, dulcolax ineffect 03/20/24
acetaminophen 325 mg tablet (Tylenol) 650 mg PO Q4HPRN PRN mild pain/fever >100 03/31/24
ammonium lactate 12 % lotion 1 applic topical BID BLE, stasis dermatitis 03/31/24
apixaban 2.5 mg tablet (Eliquis) 2.5 mg PO BID 03/31/24
atorvastatin 20 mg tablet 20 mg PO DAILY 03/31/24
hydrocortisone 1 % topical ointment 1 applic topical TID rash on bilateral legs 03/31/24
metoprolol tartrate 50 mg tablet 50 mg PO BID 03/31/24
Review of Systems
-
Unable to obtain full review of systems at this time due to: Dementia
Physical Exam
Vital Signs
Vital Signs
Temp Pulse Resp BP Pulse Ox
99.4 F 130 24 118/60 95
03/31/24 07:40 03/31/24 10:30 03/31/24 10:30 03/31/24 09:40 03/31/24 10:15
Physical Exam
General: Well Developed, Well Nourished and No Apparent Distress
HEENT: NormoCephalic, Moist mucous membranes and Atraumatic
Respiratory: Clear
Cardiac: S1/S2, Irregular Rhythm and Tachycardia; No Murmur or Rub
GI: Soft, Non Tender, Non Distended and Normal Bowel Sounds; No Organomegaly
Rectal: Deferred by Provider
Musculoskeletal: No Clubbing, No Cyanosis, Edema, Left Lower Extremity (Erythematous) and Edema, Right Lower Extremity (Erythematous)
Skin: No Rash
Neuro: Awake and Nonfocal/grossly intact
Psych: Confused and Apparent Dementia
Laboratory Results
-
03/31/24 07:36
03/31/24 07:36
Laboratory Results
Lactic Acid Cancelled 03/31/24 11:30
Total Bilirubin 0.8 mg/dl (0.2-1.3) 03/31/24 07:36
AST 45 U/L (14-36) H 03/31/24 07:36
ALT 24 U/L (0-35) 03/31/24 07:36
Alkaline Phosphatase 149 U/L (38-126) H 03/31/24 07:36
Impression/Plan
-
#Atrial fibrillation with rapid ventricular response
Restart patient home regimen 50 mg Lopressor twice daily. If no improvement will increase dose if blood pressure can tolerate it.
As needed IV Lopressor added
Monitor on telemetry
Continue with Eliquis
#Toxic metabolic encephalopathy likely secondary to worsening of vascular dementia versus UTI related versus tachycardia
CT head noted with chronic infarcts noted in the right chan radiator. No other acute abnormality noted.
Rate control plan as above
Monitor mentation closely
Speech evaluation
#Bilateral lower extremity lymphedema with concern for superimposed infection
History of MSSA lower extremity wound infection
Follows with wound care, continue with diuretics. Wound consult placed.
Hold antibiotics and will ask ID for input
#Vascular dementia unclear if with behavioral disturbances
Continue with statin and Eliquis
Monitor for behavioral disturbances
Speech eval-
#Suspected UTI
Await urine cultures
Rocephin for now. Low threshold to stop antibiotics
Hypothyroidism
Continue Synthroid
Hyperlipidemia
Continue statin
Chronic HFrEF
Severe valvular disease
Dilated ascending aorta
LVEF 49% echo from 12/09/21
Cont with diuretics. Monitor Cr.
FR. Daily weight. I/O
DVT prophylaxis on Eliquis. Avoid SCDs
DNR/DNR confirmed with patient son Over the phone in detail
Son Joe updated over the phone in complete details.
PT/OT once HR improves.
I spent a total of 78 minutes with the patient or on the floor. More than 50% of this time involved counseling and coordination of care.
--- NOTE | 2024-03-31 11:44 | CM ---
PK was contacted by Rosalva from [facility] [phone]. Patient is from [facility]. EMS called [facility] as they believed that was left unattended during while awaiting EMS. PK provided LISA Blackwell civil rights investigator with clinical information
requested. PK will continue to follow as needed.
[2024-03-31 12:05] VITALS: BP 140/74
[2024-03-31] MEDS: LOPRESSOR 50 MG PO ×2 (12:28→21:17)
[2024-03-31] MEDS: ELIQUIS 2.5 MG PO ×2 (12:28→21:17)
--- NOTE | 2024-03-31 12:41 | CON.ID ---
Addendum entered and electronically signed by Korina Ramon MD 04/01/24 08:50:
I personally performed a history and physical exam of the patient and discussed management with the resident. I reviewed the resident's note and agree with the documented findings and plan of care HPI/CC with the separately documented
additions/corrections.
AW
Original Note:
Documented by User: Leeann Kuo MD, Resident 03/31/24 16:13
Consultation
-
Date/Time Consultation Requested: 03/31 11:55
Requesting Provider: Marino Lainez MD
Performing Provider: Korina Ramon MD
Reason for Consultation: UTI
Chief Complaint / Past History
Chief Complaint
Urinary tract infection
History of Present Illness
83 year old female with hx of vascular dementia, CKD III, a-fib, CVA, who was brought to the ED from [facility] via EMS after she was found confused in a chair this morning. Per electronic records, her son confirmed that she appeared more confused
than usual.
Hx of Ecoli UTI and Klebsiella UTI
Hx of MSSA leg wound
On arrival to the ED, she was afebrile, tachycardic 122, tachypneic 24, with stable BP and oxygen saturation. EKG showed a-fib with RVR, and QTC 498. WBC 8.2, Plt 239, BUN 45, Cr 1.0.
Urinalysis indicated a UTI and urine culture was collected
Given AMS, Head CT was done which showed no acute intracranial abnormality
Ceftriaxone was started in the ED, continued today
Past History
Past Medical History: Arrhythmias (Afib), CHF, CVA, GERD, Hypothyroidism and Other (vascular dementia, CKD III, GI bleed, AV fistula of L renal artery, hyperlipidemia, )
Past Surgical History: Gynecological (hysterectomy), Orthopedic (bilateral knee replacement, R shoulder repair, percutaneous pinning of L subcapital femoral fx) and Other
Allergy History:
amiodarone [Amiodarone] Allergy (Verified 03/31/24 07:16)
Shortness of Breath
Medications Reviewed: Yes
Social History
Tobacco: Non-Smoker
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
Family History
Family History: Not Pertinent
Review of Systems
Review of Systems
General: Negative Fever
Cardiovascular: Negative Chest Pain
Gasteroenterology: Negative Nausea
Genital / Urological: Negative Dysuria or Flank Pain
Skin / Hair / Nails: Other (pain in bilateral LE)
Vital Signs
Temp Pulse Resp BP Pulse Ox
98.6 F 127 21 140/74 93
03/31/24 12:05 03/31/24 12:05 03/31/24 12:05 03/31/24 12:05 03/31/24 12:05
Physical Exam
Physical Exam
Constitutional: No Acute Distress and Comfortable
Cardiovascular: Irregular Rate, S1/S2 and Other (tachycardic); Negative Murmur, Rub or Peripheral Edema
Pulmonary: Clear and Non Labored; Negative Wheezes, Rales or Rhonchi
Gastrointestinal: Soft, Non Tender, Non Distended, Normal Bowel Sounds, No Rebound and No Guarding
Genito-Urinary: Suprapubic Tenderness and CVA Tenderness; Negative Galdamez
Extremities: Other (Onychomycosis)
Skin: Warm and Other (venous stasis dermatitis with mild oozing of serous fluid, coalescing macular redness on bilateral feet. 1cm wound on L medial maleolus)
Neurological: Awake, Alert and Other (appears mildly confused but answers most questions appropriately)
Lines: PIV (R cubital fossa)
Lab / Diagnostic Study Results
03/31/24 07:36
03/31/24 07:36
Abs Immat Gran (auto) 0.0 10^3/uL (0-0.05) 03/31/24 07:36
Absolute Neuts (auto) 6.0 10^3/uL (1.4-6.5) 03/31/24 07:36
Absolute Lymphs (auto) 0.9 10^3/uL (1.2-3.4) L 03/31/24 07:36
Absolute Monos (auto) 0.8 10^3/uL (0.1-0.6) H 03/31/24 07:36
Absolute Basos (auto) 0.1 10^3/uL (0-0.2) 03/31/24 07:36
Immature Gran % 0.5 % (0-0.5) 03/31/24 07:36
Neutrophils % 73.4 % (42.2-75.2) 03/31/24 07:36
Lymphocytes % 11.2 % (20.5-51.1) L 03/31/24 07:36
Monocytes % 10.1 % (1.7-9.3) H 03/31/24 07:36
Eosinophils % 3.2 % (0-6) 03/31/24 07:36
Basophils % 1.6 % (0-2) 03/31/24 07:36
Lactic Acid Cancelled 03/31/24 11:30
Ur Squamous Epith Cells 3-5 /LPF (Few) 03/31/24 07:36
Microbiology Results
Micro:
03/31/24 07:36 Urine Culture - Pending
Urine
Assessment / Plan
83 yr old female who presents with altered mental status secondary to Urinary tract infection vs other cause.
Urinary tract infection
Hx of UTI with Ecoli and Klebsiella
Hx of MSSA leg wound
Afib with RVR
QTC elongation
Chronic venous stasis dermatitis
- Head CT 03/31: No acute intracranial abnormality
- MRSA screen: Pending
- Urinalysis indicative of UTI
- Urine Cx: Pending
- Continue Ceftriaxone for now pending urine culture, 3 day duration

Documented by User: Korina Ramon MD 04/01/24 08:50
Consultation
-
Date/Time Consultation Requested: 03/31/24 11:55
Date/Time Consultation Performed: 03/31/24 14:11
[2024-03-31] MEDS: LOPRESSOR 5 MG IV (13:26)
[2024-03-31] MEDS: FLUSH (NSS) 1 FLUSH IV (13:28)
--- NOTE | 2024-03-31 13:34 | WOUNDNOTE ---
R LATERAL POSTERIOR LOWER LEG
--- NOTE | 2024-03-31 13:34 | WOUNDNOTE ---
L MEDIAL LOWER LEG
--- NOTE | 2024-03-31 13:35 | WOUNDNOTE ---
L LATERAL LOWER LEG
--- NOTE | 2024-03-31 13:37 | WOUNDNOTE ---
WON RN note: Patient admitted with altered mental status.
See H&P for complete history. Lives at [facility].
PMH: R distal radius fracture repair, PVD chronic venous ulcer on R leg, goes to [facility], AFIB on Coumadin, TIA and CHF, L hip fracture. Venous ulcers on legs-goes to [facility] with Dr. Mccann.
Wound Location and type/assessment: Received patient trying to get oob reaching for lunch tray, legs on either side of side rail. With assist of PCT repositioned patient back to bed, set up to eat lunch. Brief changed and skin care given,
incontinent of urine. legs with scattered venous leg ulcers, redness and tender to touch. Trace edema, skin very dry. Audible + pedal pulses laura with Doppler. Heels and sacrum intact, can turn self.
Appetite: appetite good.
Pressure redistribution devices in place: [employer]a bed, turns self, pillow under calves.
Plan: Applied adaptic, abd pads and linda to both legs. Will discuss current wound care and compression with Dr. Mccann and confirm orders with hospitalist. Updated nurse Alanis on the above.
Updated care plan and will follow as needed.
Recommend follow up at wound care center upon discharge.
--- NOTE | 2024-03-31 14:11 | W.PN.UPDATE ---
Update Note
Progress Note Update
I personally performed a history and physical exam of the patient and discussed management with the resident. I reviewed the resident's separately documented note and agree with the documented findings and plan of care HPI/CC with the following
additions/corrections:
agree with CC and HPI as written.
In addition:
Exam:
Gen: alert
CV: irregular rate and rhythm
Pulmk: CTA BL no rales, wheezes or ronchi
GI: nondistended, nontender, NABS
Extr: minimal chronic appearing erythroderma
Skin: foundation on her face notably mismatched to her skin tone
Labs:
as below most notably wbc 8.2, hgb 12.1, plt 239, cr 1.0, ua 60-70 wbc/hpf and many bacteria, 3-5 squamous cells/hpf
urine culture in progress
previous colonization with MSSA
A&P
83 year old female with AMS and likely UTI
Suspected uncomplicated UTI
Toxic Metabolic Encephalopathy
- ua with pyuria, follow up urine culture
- not complaining of symptoms but not a reliable historian
- agree with Ceftriaxone
- follow clinically, if stabilizing for before urine culture is back please let me know and I can make empiric recs
Venous Stasis Dermatitis
- in person visualization of the legs in much less erythematous than in the wound care photos- this may be due to edema that has improved with elevation through the afternoon
- doubt acute cellulitis at this time
- recommend against intermediate school teacher steroid creams which mask inflammatory symptom without resolving the underlying issue
- compression and elevation
AW
--- NOTE | 2024-03-31 14:13 | PTOTSP ---
ST Acute Care Evaluation
Pt displays mild oral dysphagia characterized by prolonged mastication and bolus formation, distractibility during PO intake, need for liquid washes to clear bolus, and reduced insight into deficits/safety precautions.
Pt also presents with a cognitive linguistic impairment of unknown severity in the setting of known vascular dementia. Will continue to monitor pt's cognitive status and assess further if deemed warranted.
Recommendations:
- Upgrade PO diet to SOFT BITE SIZED SOLIDS and continue with REGULAR THIN LIQUIDS; meds as tolerated.
- General aspiration precautions: Pt must be fully awake, alert, and upright for ALL PO intake; assistance with tray set-up; distant supervision; encourage pt to alternate liquids/solids.
- FLATWORK SUPERVISOR to f/u to ensure pt is tolerating recommended diet consistencies and to determine whether or not pt would be appropriate for additional diet upgrades.
- FLATWORK SUPERVISOR to monitor cognitive status and obtain baseline information to determine whether pt would benefit from additional cognitive linguistic assessment at this time.
[2024-03-31 15:25] VITALS: BP 123/71
[2024-03-31 19:10] VITALS: BP 99/54
[2024-03-31 23:10] VITALS: BP 95/58
[2024-04-01] VITALS (8 sets, daily range): BP systolic 102–127; BP diastolic 56–88; PULSE 79–83; O2SAT 97–98; BMI 23.3
[2024-04-01] MEDS: SYNTHROID 88 MCG PO (06:36)
--- NOTE | 2024-04-01 08:02 | VNURNOTE ---
Chart reviewed. Patient current with [facility] nursing. [facility] Will continue to monitor hospital course and DC plans.
[2024-04-01 08:09] LABS: % Basophils 1.2 % (0-2); % Eosinophils 3.8 % (0-6); % Immature Granulocytes 0.5 % (0-0.5); % Lymphocytes 15.5 % (20.5-51.1); % Monocytes 14.2 % (1.7-9.3); % Neutrophils 64.8 % (42.2-75.2); Absolute Basophils 0.1 10^3/uL (0-0.2); Absolute Eosinophils 0.3 10^3/uL (0-0.7); Absolute Lymphocytes 1.1 10^3/uL (1.2-3.4); Absolute Neutrophils 4.7 10^3/uL (1.4-6.5); Hematocrit 33.5 % (37.0-47.0); Mean Corp Hgb Conc. 32.8 g/dL (33.0-37.0); Mean Corpuscular Hgb 29.8 pg (27.0-31.0); Mean Corpuscular Volume 90.8 fL (81.0-99.0); Mean Platelet Volume 9.8 fL (7.4-10.4); Nucleated Red Blood Cells % 0 %; Platelet Count 222 10^3/uL (130-400); Red Blood Cell Count 3.69 10^6/uL (4.20-5.40); Red Cell Dist. Width 14.8 % (11.5-14.5); White Blood Cell Count 7.3 10^3/uL (4.8-10.8)
[2024-04-01] MEDS: LIPITOR 20 MG PO (08:26)
[2024-04-01] MEDS: ELIQUIS 2.5 MG PO ×2 (08:26→19:52)
[2024-04-01] MEDS: DEMADEX 20 MG PO (08:26)
[2024-04-01] MEDS: HYDROPHOR 1 APPLIC TOPICAL (08:26)
[2024-04-01] MEDS: OSCAL CAL 500 500 MG PO (08:26)
[2024-04-01] MEDS: LOPRESSOR 50 MG PO ×2 (08:26→19:51)
[2024-04-01 09:15] LABS: Blood Urea Nitrogen 36 mg/dl (7-17); Calcium 9.3 mg/dl (8.4-10.2); Carbon Dioxide 21 mmol/L (22-30); Chloride 108 mmol/L (98-107); Estimated Creatinine Clearance 43 ml/min; Glucose 94 mg/dl (70-99); Sodium 135 mmol/L (135-145); eGFR > 60.00
[2024-04-01 09:16] LABS: Potassium 4.3 mmol/L (3.5-5.1)
[2024-04-01] MEDS: ROCEPHIN 1000 MG IV (09:44)
[2024-04-01] MEDS: STERILE WATER FOR INJECTION 10 ML IV (09:45)
--- NOTE | 2024-04-01 10:37 | W.PN.HOSP.TC ---
Today's Communication/Plan
-
monitor HR
PT/OT
Await culture data
Assessment / Plan
Assessment / Plan
#Atrial fibrillation with rapid ventricular response
Restart patient home regimen 50 mg Lopressor twice daily. If no improvement will increase dose if blood pressure can tolerate it.
As needed IV Lopressor added
Monitor on telemetry. HR improved.
Continue with Eliquis
#Toxic metabolic encephalopathy likely secondary to worsening of vascular dementia versus UTI related versus tachycardia
CT head noted with chronic infarcts noted in the right chan radiator. No other acute abnormality noted.
Rate control plan as above
Monitor mentation closely
Speech evaluation-soft and bite size
#Bilateral lower extremity lymphedema with concern for superimposed infection
History of MSSA lower extremity wound infection
Follows with wound care, continue with diuretics. Wound consult placed.
Hold antibiotics and wound care.
Appreciate ID recs
#Vascular dementia unclear if with behavioral disturbances
Continue with statin and Eliquis
Monitor for behavioral disturbances
Speech eval-
#Suspected UTI
Await urine cultures
Rocephin for now. Low threshold to stop antibiotics
Hypothyroidism
Continue Synthroid
Hyperlipidemia
Continue statin
Chronic HFrEF
Severe valvular disease
Dilated ascending aorta
LVEF 49% echo from 12/09/21
Cont with diuretics. Monitor Cr.
FR. Daily weight. I/O
DVT prophylaxis on Eliquis. Avoid SCDs
DNR/DNR confirmed with patient son Over the phone in detail
Son Joe updated over the phone in complete details on admission.
Anticipated Discharge: Within 24 hours
Subjective/Interval History
-
Date of Service: April 01, 2024
sitting in chair
Hr improved
Objective Data
-
Labs:
Laboratory Results
04/01/24
06:26
WBC 7.3
Hgb 11.0 L
Hct 33.5 L
Plt Count 222
Sodium 135
Potassium 4.3
Chloride 108 H
Carbon Dioxide 21 L
BUN 36 H
Creatinine 0.8
Glucose 94
Calcium 9.3
Vital Signs:
Vital Signs
Temp Pulse Resp BP Pulse Ox
98.2 F 93 18 105/56 92
04/01/24 07:00 04/01/24 07:00 04/01/24 07:00 04/01/24 07:00 04/01/24 07:00
I&O
03/31/24 04/01/24 04/02/24
06:59 06:59 06:59
Intake Total 480 / 480
Balance 480 / 480
Physical Exam
-
General: Well Developed and No Apparent Distress
HEENT: Normocephalic, Atraumatic and Moist Mucous Membranes
Respiratory: Clear to Auscultation
Cardiac: S1/S2 and Irregular Rhythm; Negative Murmur, Rub or Gallop
GI: Soft, Nontender, Nondistended and Normal Bowel Sounds; Negative Organomegaly
Rectal: Deferred by Provider
Musculoskeletal: No Clubbing, No Cyanosis and No Edema
Skin: Negative Rash
Neuro: Awake, No Motor Deficits and Nonfocal/Grossly Intact
Psych: Apparent Dementia
Data Reviewed
-
Total Time Spent with Patient (in minutes): 56
--- NOTE | 2024-04-01 15:11 | CM ---
Addendum entered by Ruby Zaidi 04/01/24 16:05:
Spoke with sonSiva, discussed recommendation of SNF, would prefer if patient is able to remain in [facility] with [facility], asked if possible for patient to go to rehab but remain in same room (at [facility]). Son understands that patient is currently an
assist of two and did not ambulate in therapy today. Reports patient has been to rehab in past, concerned about change of surroundings for patient. CM spoke with Alanis Feldman from [facility], patient typically able to ambulate with rolling walker.
Referral sent to [facility].
Plan; [facility] SNF pending acceptance, when medically stable.
Addendum entered by Ruby Zaidi 04/01/24 15:43:
Patient from [facility].
Original Note:
Patient seen in chair, from [facility]. PT recommending SNF, CM placed call to patients Siva hawley, reports he will be at the hospital within the next half hour, CM will discuss recommendations. CM will continue to follow for all discharge
planning needs.
Plan; SNF pending accepting facility, when stable.
--- NOTE | 2024-04-01 16:56 | W.PN.ID1 ---
Date of Service
Date of Service: April 01, 2024
Today's Communication
- some suprapubic tenderness
- ua with pyuria, urine culture 100K GNR
- agree with Ceftriaxone
Assessment / Plan
A&P
83 year old female with AMS and likely UTI
Suspected uncomplicated UTI
Toxic Metabolic Encephalopathy
- some suprapubic tenderness
- ua with pyuria, urine culture 100K GNR
- agree with Ceftriaxone
- follow clinically, if stabilizing for before urine culture is back please let me know and I can make empiric recs
Venous Stasis Dermatitis
- in person visualization of the legs in much less erythematous than in the wound care photos- this may be due to edema that has improved with elevation through the afternoon
- doubt acute cellulitis at this time
- recommend against usp steroid creams which mask inflammatory symptom without resolving the underlying issue
- compression and elevation
Chief Complaint
-: UTI
Subjective / Review of Systems
afebrile
mental status much improved today
some R ankle tenderness, improved with taking down dressing which was bunched over the ankle
Vital Signs / Physical Exam
Vital Signs
Vital Signs
Temp Pulse Resp BP Pulse Ox
97.6 F 85 16 106/61 98
04/01/24 15:00 04/01/24 15:00 04/01/24 15:00 04/01/24 15:00 04/01/24 15:00
Physical Exam
Constitutional: No Acute Distress and Chronically Ill
Cardiovascular: Regular Rate and S1/S2; Negative Murmur or Rub
Pulmonary: Clear and Symmetric; Negative Wheezes or Rales
Gastrointestinal: Soft, Non Tender, Non Distended and Normal Bowel Sounds
Skin: Warm and Dry; Negative Rash or Jaundice
Objective Data
Lab Data
Lab Results
04/01/24 06:26
04/01/24 06:26
Estimated Creat Clear 43 ml/min 04/01/24 06:26
Lactic Acid Cancelled 03/31/24 11:30
Total Bilirubin 0.8 mg/dl (0.2-1.3) 03/31/24 07:36
AST 45 U/L (14-36) H 03/31/24 07:36
ALT 24 U/L (0-35) 03/31/24 07:36
Alkaline Phosphatase 149 U/L (38-126) H 03/31/24 07:36
Most recent labs reviewed.
Micro Results:
03/31/24 13:07 MRSA Screen - Final
Nose No Methicillin Resistant Staphylococcus aureus isolated.
03/31/24 07:36 Urine Culture - Preliminary
Urine Gram negative bacilli
[2024-04-02] VITALS (7 sets, daily range): BP systolic 102–127; BP diastolic 55–81; PULSE 91; BMI 23.0
--- NOTE | 2024-04-02 03:15 | DOWNTIME ---
There was a [employer] Downtime on 04/02/2024 from 0100 to 04/02/2024 at 0252. Downtime documentation of patient's care, including medication administrations, has been reconciled in the electronic record per guidelines. Refer to the
patient's paper chart under the miscellaneous tab to see printed paper medication records and downtime forms.
[2024-04-02] MEDS: SYNTHROID PO (05:31)
[2024-04-02 06:52] LABS: % Basophils 1.6 % (0-2); % Eosinophils 9.2 % (0-6); % Immature Granulocytes 0.5 % (0-0.5); % Lymphocytes 11.7 % (20.5-51.1); % Monocytes 11.8 % (1.7-9.3); % Neutrophils 65.2 % (42.2-75.2); Absolute Basophils 0.1 10^3/uL (0-0.2); Absolute Eosinophils 0.7 10^3/uL (0-0.7); Absolute Lymphocytes 0.9 10^3/uL (1.2-3.4); Absolute Monocytes 0.9 10^3/uL (0.1-0.6); Absolute Neutrophils 4.7 10^3/uL (1.4-6.5); Hematocrit 33.2 % (37.0-47.0); Mean Corp Hgb Conc. 33.1 g/dL (33.0-37.0); Mean Corpuscular Hgb 30.1 pg (27.0-31.0); Mean Platelet Volume 9.7 fL (7.4-10.4); Nucleated Red Blood Cells % 0 %; Platelet Count 214 10^3/uL (130-400); Red Blood Cell Count 3.65 10^6/uL (4.20-5.40); Red Cell Dist. Width 14.4 % (11.5-14.5); White Blood Cell Count 7.3 10^3/uL (4.8-10.8)
[2024-04-02 07:33] LABS: Blood Urea Nitrogen 34 mg/dl (7-17); Carbon Dioxide 26 mmol/L (22-30); Chloride 105 mmol/L (98-107); Estimated Creatinine Clearance 43 ml/min; Glucose 83 mg/dl (70-99); Sodium 135 mmol/L (135-145); eGFR > 60.00
[2024-04-02] MEDS: LOPRESSOR 50 MG PO ×2 (08:58→19:55)
[2024-04-02] MEDS: ELIQUIS 2.5 MG PO ×2 (08:58→19:55)
[2024-04-02] MEDS: LIPITOR 20 MG PO (08:58)
[2024-04-02] MEDS: ROCEPHIN 1000 MG IV (08:59)
[2024-04-02] MEDS: OSCAL CAL 500 500 MG PO (08:59)
[2024-04-02] MEDS: STERILE WATER FOR INJECTION 10 ML IV (08:59)
[2024-04-02] MEDS: DEMADEX 20 MG PO (08:59)
[2024-04-02] MEDS: HYDROPHOR 1 APPLIC TOPICAL (08:59)
--- NOTE | 2024-04-02 11:15 | W.PN.HOSP.TC ---
Today's Communication/Plan
-
Consider stopping antibiotics
Monitor clinically
Possible discharge
Assessment / Plan
Assessment / Plan
#Possible UTI
-No symptoms other than encephalopathy and abnormal UA
-Urine culture today return positive for Citrobacter with resistance to ceftriaxone
-Has been receiving IV ceftriaxone with improvement to her mental status
-As she is improved on antibiotics that urine species are resistant to, do not suspect true infection
-Low threshold for stopping IV antibiotics, will discuss with ID
#Atrial fibrillation with rapid ventricular response
-Has chronic atrial fibrillation, suspect RVR in this case was secondary to UTI with encephalopathy
-Has been reinitiated on 50 mg metoprolol succinate twice daily, RVR is resolved
-As of this morning her heart rate is 85/min, remains irregular
#Toxic metabolic encephalopathy -- Resolved; possibly secondary to UTI
-CT head showed chronic infarcts within the right chan radiata though no acute abnormalities
-Appears to be back at mental baseline this morning
#Bilateral lower extremity lymphedema
-ID assessed, low suspicion for infection
-Will continue with wound care and conservative measures
#Vascular dementia unclear if with behavioral disturbances
-Unclear mental baseline, as of this morning is AAO x 2 which is the best she has been here
-Home medications include moderate intensity statin, apixaban
#Hypothyroidism
-Remains on home Synthroid dose
#Hyperlipidemia
-ASCVD history with vascular dementia
-Remains on home statin
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
#Severe cardiac valvular disease
#Dilated ascending aorta
-Not currently on full GDMT, home regimen includes beta-angélica and loop diuretic
-Seems euvolemic as of now, no symptoms of decompensated heart failure
DVT prophylaxis: Home Eliquis
Diet: Soft and bite-size
CODE STATUS: DNR/DNR confirmed with son
Anticipated Discharge: Within 24 hours
Subjective/Interval History
-
Date of Service: April 02, 2024
Seen and examined at the bedside. No acute events overnight.
She denies any acute complaints, currently AO x 2 which may be her mental baseline.
Objective Data
-
Labs:
Laboratory Results
04/02/24
06:21
WBC 7.3
Hgb 11.0 L
Hct 33.2 L
Plt Count 214
Sodium 135
Potassium 4.0
Chloride 105
Carbon Dioxide 26
BUN 34 H
Creatinine 0.8
Glucose 83
Calcium 9.0
Vital Signs:
Vital Signs
Temp Pulse Resp BP Pulse Ox
98.2 F 85 16 109/65 93
04/02/24 07:00 04/02/24 08:58 04/02/24 07:00 04/02/24 08:58 04/02/24 07:00
I&O
04/01/24 04/02/24 04/03/24
06:59 06:59 06:59
Intake Total 480 / 480 840 / 840
Balance 480 / 480 840 / 840
Review of Systems
-
Unable to obtain full review of systems at this time due to: Dementia
Physical Exam
-
General: No Apparent Distress, Comfortable and Other (Thin and frail female)
HEENT: Normocephalic, Atraumatic and Moist Mucous Membranes
Respiratory: Clear to Auscultation and Non Labored Respirations
Cardiac: S1/S2, Irregular Rhythm and Murmur; Negative Rub, JVD, Gallop or Tachycardic
GI: Soft, Nontender, Nondistended and Normal Bowel Sounds
Genito-urinary: No Costovertebral Tender
Musculoskeletal: No Clubbing, No Cyanosis and No Edema
Skin: Warm and Dry; Negative Rash
Neuro: Alert, Oriented, Nonfocal/Grossly Intact and Central Nerve's Intact; Negative Tremors
Data Reviewed
-
Labs: Labs Reviewed by me
--- NOTE | 2024-04-02 11:44 | PN.CDI ---
CDI
- -
CDI:
Physician Documentation Request
Admit Date: 03/31/24 10:54
Dear Doctor Chuy,
Clinical Indicators:
Patient admitted with possible UTI and toxic metabolic encephalopathy.
04/01 PN, 'Has been receiving IV ceftriaxone with improvement to her mental status.'
HR/RR trend on admission:
03/31/24
07:12 03/31/24
08:00 03/31/24
09:15
Pulse 122 126 112
Resp Rate 24 21 21
03/31/24
09:45 03/31/24
10:00 03/31/24
11:00
Pulse 124 116 129
Resp Rate 34 24 28
Please clarify which of the following most accurately describes the status of the patient's infection:
Sepsis, POA
- Systemic manifestations of infection, with 2 or more SIRS criteria which include:
- Fever >100.4 degrees F or hypothermia < 96.8 degrees F
- Leukocytosis - WBC > 12,000 or leukopenia - WBC < 4,000 or > 10% bands
- Tachycardia > 90 beats per minute
- Tachypnea - RR > 20 breaths per minute or PaCO2 , 32mmHg
Source: Merck Manual 2013
- Indicate the known or suspected organism
Suspected UTI Only, Without Systemic Illness
Other, please specify
Use of terms such as suspected, likely, concern for, or probable (associated with a specific diagnosis that is being evaluated, monitored, or treated as if it exists) are acceptable and can be coded in the inpatient setting, when documented at the
time of discharge.
Thank you,
Candie Lindquist RN
CDI Specialist
available via tiger text
Please use your independent medical judgment in providing your response.
--- NOTE | 2024-04-02 13:10 | W.PN.ID1 ---
Addendum entered and electronically signed by Korina Ramon MD 04/02/24 18:38:
I saw and evaluated the patient. I reviewed the resident�s note and agree with findings and plan as documented in the resident�s note.
Discussed with Dr Vera same day
stable for dc from ID perspective
AW
Original Note:
Documented by User: Leeann Kuo MD, Resident 04/02/24 14:01
Date of Service
Date of Service: April 02, 2024
Today's Communication
Switch to Nitrofurantoin for 5 days
Assessment / Plan
A&P
83 year old female with AMS and likely UTI
Suspected uncomplicated UTI
Toxic Metabolic Encephalopathy
- some suprapubic tenderness
- ua with pyuria, urine culture >100K Citrobacter farmeri, resistant to Ceftriaxone.
- Switch to effective abx, Nitrofurantoin 100mg BID x 5 days to 04/06
Venous Stasis Dermatitis
- in person visualization of the legs in much less erythematous than in the wound care photos- this may be due to edema that has improved with elevation through the afternoon
- doubt acute cellulitis at this time
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
- compression and elevation
Chief Complaint
-: UTI
Subjective / Review of Systems
Poor sleep overnight
Complains of
Review of Systems: No Fever, No Chest Pain, No Abdominal Pain and Other (Generalized aches)
Vital Signs / Physical Exam
Vital Signs
Vital Signs
Temp Pulse Resp BP Pulse Ox
98.0 F 88 18 102/75 98
04/02/24 11:00 04/02/24 11:00 04/02/24 11:00 04/02/24 11:00 04/02/24 11:00
Physical Exam
Constitutional: No Acute Distress and Chronically Ill
Cardiovascular: Irregular Rate, S1/S2 and Other (botherline tachycardic); Negative Murmur or Peripheral Edema
Pulmonary: Clear and Non Labored; Negative Wheezes, Rales or Rhonchi
Gastrointestinal: Soft, Non Tender, Non Distended, Normal Bowel Sounds, No Rebound and No Guarding
Genito-Urinary: Negative Suprapubic Tenderness or CVA Tenderness
Extremities: Other (Bilateral venous stasis dermatitis, dressings intact)
Neurological: Awake and Alert
Objective Data
Lab Data
Lab Results
04/02/24 06:21
04/02/24 06:21
Estimated Creat Clear 43 ml/min 04/02/24 06:21
Lactic Acid Cancelled 03/31/24 11:30
Total Bilirubin 0.8 mg/dl (0.2-1.3) 03/31/24 07:36
AST 45 U/L (14-36) H 03/31/24 07:36
ALT 24 U/L (0-35) 03/31/24 07:36
Alkaline Phosphatase 149 U/L (38-126) H 03/31/24 07:36
Most recent labs reviewed.
Micro Results:
03/31/24 07:36 Urine Culture - Final
Urine Citrobacter farmeri
03/31/24 13:07 MRSA Screen - Final
Nose No Methicillin Resistant Staphylococcus aureus isolated.

Documented by User: Korina Ramon MD 04/02/24 18:37
Subjective / Review of Systems
Poor sleep overnight
--- NOTE | 2024-04-02 15:05 | CM ---
Patient seen bedside with son, Siva. Siva reports he spoke with Princess Bird, admin from [facility]. Per Princess Bird, patient needs to be an assist of one for transfers to return to [facility]. CM reports PT will evaluate patient again today,
will watch for recommendations. Siva hopeful patient can return to [facility] with therapy as patient does get disoriented with environment changes. Per PT, patient assist of one, able to ambulate 15 feet x 1 with min assist. CM placed call to Princess Bird
[phone] to discuss patient progress in PT, if patient is able to return. CM will continue to follow for all discharge planning needs.
Plan; SNF vs return to [facility] with home therapy, awaiting return call from Princess Bird.
[2024-04-02] MEDS: MACROBID 100 MG PO ×2 (16:52→19:56)
[2024-04-02] MEDS: TYLENOL 650 MG PO (16:55)
[2024-04-03 03:33] VITALS: BP 123/70
[2024-04-03] MEDS: SYNTHROID 88 MCG PO (05:55)
[2024-04-03 06:00] VITALS: BMI 22.9
[2024-04-03 06:39] LABS: % Eosinophils 4.6 % (0-6); % Immature Granulocytes 0.6 % (0-0.5); % Lymphocytes 7.9 % (20.5-51.1); % Neutrophils 76.9 % (42.2-75.2); Absolute Basophils 0.1 10^3/uL (0-0.2); Absolute Eosinophils 0.5 10^3/uL (0-0.7); Absolute Immature Granulocytes 0.1 10^3/uL (0-0.05); Absolute Lymphocytes 0.9 10^3/uL (1.2-3.4); Absolute Neutrophils 8.5 10^3/uL (1.4-6.5); Hematocrit 38.5 % (37.0-47.0); Hemoglobin 12.4 g/dL (12.0-16.0); Mean Corp Hgb Conc. 32.2 g/dL (33.0-37.0); Mean Corpuscular Hgb 30.5 pg (27.0-31.0); Mean Corpuscular Volume 94.8 fL (81.0-99.0); Mean Platelet Volume 9.9 fL (7.4-10.4); Nucleated Red Blood Cells % 0 %; Platelet Count 241 10^3/uL (130-400); Red Blood Cell Count 4.06 10^6/uL (4.20-5.40); Red Cell Dist. Width 14.2 % (11.5-14.5); White Blood Cell Count 11.1 10^3/uL (4.8-10.8)
[2024-04-03 07:00] VITALS: BP 126/62
[2024-04-03 07:01] LABS: Blood Urea Nitrogen 27 mg/dl (7-17); Calcium 9.3 mg/dl (8.4-10.2); Carbon Dioxide 28 mmol/L (22-30); Chloride 100 mmol/L (98-107); Estimated Creatinine Clearance 38 ml/min; Glucose 113 mg/dl (70-99); Potassium 4.7 mmol/L (3.5-5.1); Sodium 138 mmol/L (135-145); eGFR > 60.00
[2024-04-03] MEDS: OSCAL CAL 500 500 MG PO (08:20)
[2024-04-03] MEDS: DEMADEX 20 MG PO (08:20)
[2024-04-03] MEDS: ELIQUIS 2.5 MG PO (08:20)
[2024-04-03] MEDS: MACROBID 100 MG PO (08:21)
[2024-04-03] MEDS: LOPRESSOR 50 MG PO (08:22)
[2024-04-03] MEDS: LIPITOR 20 MG PO (08:22)
--- NOTE | 2024-04-03 08:40 | W.PN.ID1 ---
Addendum entered and electronically signed by Korina Ramon MD 04/03/24 14:19:
NON BILLABLE NOTE:
I did discuss the patient with Dr Kuo, unfortunately she discharged prior to me completing an exam.
My previous plan is unchanged and consistent with Dr Kuo's documentation.
Original Note:
Date of Service
Date of Service: April 03, 2024
Today's Communication
Continue Nitrofurantoin to 04/06
Okay to discharge from ID perspective
Assessment / Plan
A&P
83 year old female with AMS and likely UTI
Suspected uncomplicated UTI
Toxic Metabolic Encephalopathy
- some suprapubic tenderness, resolved
- ua with pyuria, urine culture >100K Citrobacter farmeri, resistant to Ceftriaxone.
- continue Nitrofurantoin 100mg BID x 5 days to 04/06
Venous Stasis Dermatitis
- in person visualization of the legs in much less erythematous than in the wound care photos- this may be due to edema that has improved with elevation through the afternoon
- doubt acute cellulitis at this time
- recommend against prison steroid creams which mask inflammatory symptom without resolving the underlying issue
- compression and elevation
Chief Complaint
-: UTI
Subjective / Review of Systems
No acute events overnight
Pt states she feels physically improved but anxious
Review of Systems: No Fever and Other (LE pain)
Vital Signs / Physical Exam
Vital Signs
Vital Signs
Temp Pulse Resp BP Pulse Ox
99.5 F 94 18 126/62 92
04/03/24 07:00 04/03/24 07:00 04/03/24 07:00 04/03/24 08:22 04/03/24 07:00
Physical Exam
Constitutional: No Acute Distress and Comfortable
Cardiovascular: S1/S2 and Other (Irregular rhythm, normal rate); Negative Murmur or Rub
Pulmonary: Clear and Non Labored; Negative Wheezes, Rales or Rhonchi
Gastrointestinal: Soft, Non Tender, Non Distended, Normal Bowel Sounds, No Rebound and No Guarding
Genito-Urinary: Negative Suprapubic Tenderness or CVA Tenderness
Extremities: Other (Bilateral venous stasis dermatitis, dressings intact)
Neurological: Awake and Alert
Psychological: Confused (mildly) and Other (anxious)
Objective Data
Lab Data
Lab Results
04/03/24 06:07
04/03/24 06:07
Estimated Creat Clear 38 ml/min 04/03/24 06:07
Lactic Acid Cancelled 03/31/24 11:30
Total Bilirubin 0.8 mg/dl (0.2-1.3) 03/31/24 07:36
AST 45 U/L (14-36) H 03/31/24 07:36
ALT 24 U/L (0-35) 03/31/24 07:36
Alkaline Phosphatase 149 U/L (38-126) H 03/31/24 07:36
Most recent labs reviewed.
Micro Results:
03/31/24 07:36 Urine Culture - Final
Urine Citrobacter farmeri
03/31/24 13:07 MRSA Screen - Final
Nose No Methicillin Resistant Staphylococcus aureus isolated.
--- NOTE | 2024-04-03 09:06 | CM ---
Addendum entered by Katherine Shafer 04/03/24 15:31:
Patient also d/c with [facility].
Addendum entered by Katherine Shafer 04/03/24 11:43:
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
IMM reviewed with son.
Original Note:
Spoke with Princess Bird from [facility] [place].
PT notes reviewed.
They are able to accept patient back.
Please call with transport time.
Plan: Back to [facility] [place]
Patient will require ambulance transport.
[facility] [place]
Report# [phone] ask for Flor or Mandi
--- NOTE | 2024-04-03 10:18 | W.PN.HOSP.TC ---
Today's Communication/Plan
-
Continue nitrofurantoin to complete 7 days
Discharge back to
Assessment / Plan
Assessment / Plan
#Urinary tract infection -- no evidence of sepsis despite encephalopathy
-No symptoms other than encephalopathy and abnormal UA
-Urine culture today return positive for Citrobacter with resistance to ceftriaxone
-Has been receiving IV ceftriaxone with improvement to her mental status
-She did complain of dysuria to the ID team, still suspect real infection
-Has been transitioned to nitrofurantoin, plan to complete 7-day course
#Atrial fibrillation with rapid ventricular response
-Has chronic atrial fibrillation, suspect RVR in this case was secondary to UTI with encephalopathy
-Has been reinitiated on 50 mg metoprolol succinate twice daily, RVR is resolved
-As of this morning her heart rate is 85/min, remains irregular
#Metabolic encephalopathy secondary to UTI
-CT head showed chronic infarcts within the right chan radiata though no acute abnormalities
-Appears to be back at mental baseline
#Bilateral lower extremity lymphedema
-ID assessed, low suspicion for infection
-Will continue with wound care and conservative measures
#Vascular dementia unclear if with behavioral disturbances
-Unclear mental baseline, as of this morning is AAO x 2 which is the best she has been here
-Home medications include moderate intensity statin, apixaban
#Hypothyroidism
-Remains on home Synthroid dose
#Hyperlipidemia
-ASCVD history with vascular dementia
-Remains on home statin
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
#Severe cardiac valvular disease
#Dilated ascending aorta
-Not currently on full GDMT, home regimen includes beta-angélica and loop diuretic
-Seems euvolemic as of now, no symptoms of decompensated heart failure
DVT prophylaxis: Home Eliquis
Diet: Soft and bite-size
CODE STATUS: DNR/DNR confirmed with son
Anticipated Discharge: Today
Subjective/Interval History
-
Date of Service: April 03, 2024
Seen and examined at bedside. No acute events overnight.
She denies any acute complaints. Appears well, participating in conversation, AAOx2. Denies any dysuria, abdomen pain, fevers or chills. Also denies chest pain, shortness of breath, GI complaints, abnormal bleeding or bruising, paresthesias.
Objective Data
-
Labs:
Laboratory Results
04/03/24
06:07
WBC 11.1 H
Hgb 12.4
Hct 38.5
Plt Count 241
Sodium 138
Potassium 4.7
Chloride 100
Carbon Dioxide 28
BUN 27 H
Creatinine 0.9
Glucose 113 H
Calcium 9.3
Vital Signs:
Vital Signs
Temp Pulse Resp BP Pulse Ox
99.5 F 94 18 126/62 92
04/03/24 07:00 04/03/24 07:00 04/03/24 07:00 04/03/24 08:22 04/03/24 07:00
I&O
04/02/24 04/03/24 04/04/24
06:59 06:59 06:59
Intake Total 840 / 840 940 / 940
Balance 840 / 840 940 / 940
Review of Systems
-
History Source: Patient
All other systems: Reviewed and negative
Physical Exam
-
General: No Apparent Distress, Comfortable and Other (Pleasant, frail elderly female)
HEENT: Normocephalic, Atraumatic and Moist Mucous Membranes
Respiratory: Clear to Auscultation and Non Labored Respirations
Cardiac: S1/S2 and Irregular Rhythm; Negative Murmur, Rub, JVD or Gallop
GI: Soft, Nontender, Nondistended and Normal Bowel Sounds
Genito-urinary: No Costovertebral Tender and Other (No suprapubic tenderness or fullness)
Musculoskeletal: No Clubbing, No Cyanosis and No Edema
Skin: Warm and Dry; Negative Rash or Jaundice
Neuro: AO x 3, Nonfocal/Grossly Intact and Central Nerve's Intact
Data Reviewed
-
Labs: Labs Reviewed by me and Discussed with Family
[2024-04-03] MEDS: DULCOLAX 10 MG RECTAL (10:45)
[2024-04-03 11:00] VITALS: BP 92/63
[2024-04-03] MEDS: HYDROPHOR 1 APPLIC TOPICAL (12:04)
--- NOTE | 2024-04-03 12:06 | W.DCSUMMARY ---
Discharge Summary
Discharge Data
Date of Admission: 03/31/24
Date of Discharge: 04/03/24
-
Pending Results: No
Hospital Course
Presented to the hospital with encephalopathy and rapid heart rate with A-fib. Found to have evidence of UTI on urinalysis, patient complained of dysuria when lucid. Was started on ceftriaxone, urine culture came back for Citrobacter primary that
was resistant ceftriaxone. Transition to nitrofurantoin which was efficacious. Clinically improved. Did have RVR from atrial fibrillation upon arrival in the context of her infection. Her heart rate normalized on antibiotic therapy and with IV
fluids.
Discharged with directed to complete 4 more days of nitrofurantoin as outpatient.
Discharge Plan
-
Patient Disposition: Correction/SNF
Discharge Diagnosis/Procedures: Urinary tract infection
Metabolic encephalopathy
Diet: No restrictions
Activity: As tolerated
Driving Restrictions: No driving
Bathing Restrictions: None
Other Services: PT and OT
Specialty Instructions: Weigh Daily- Call MD for wt gain/loss 3 lbs overnight/5 lbs in 1 week
Activity Restrictions/Additional Instructions:
Wound Care Instructions
Legs: clean with soap and water, apply mineral oil then adaptic, abd pads and linda daily.
resume compression
leg elevation when sitting
Follow up at wound care center call for an appointment.
Referrals:
Yair Bello MD [Family Provider] -
Additional Discharge Medication Instructions: Continue nitrofurantoin for 4 days after discharge (to complete on 04/07)
Stop taking Eliquis (determined to be fall risk, stopped prior to hospitalization
Prescriptions:
New
nitrofurantoin monohyd/m-cryst 100 mg Capsule
100 mg PO BID 4 Days Qty: 8 0RF
Continued
levothyroxine 88 MCG tablet
88 mcg PO DAILY
torsemide 20 MG tablet
20 mg PO DAILY
calcium carbonate 600 MG tablet
600 mg PO DAILY
magnesium hydroxide [Milk of Magnesia] 400 mg/5 mL Suspension
400 mg PO [id number] PRN (Reason: constipation,3 days no bm)
bisacodyl [Dulcolax (bisacodyl)] 10 mg Suppository
10 mg SC DAILYPRN PRN (Reason: if no bm on 5th day or aftr mom)
Fleet Enema 19-7 gram/118 mL Enema
118 ml SC DAILYPRN PRN (Reason: no bm 6 days, dulcolax ineffect)
acetaminophen [Tylenol] 325 mg Tablet
650 mg PO Q4HPRN MDD 3000 mg PRN (Reason: mild pain/fever >100)
atorvastatin 20 mg Tablet
20 mg PO DAILY
ammonium lactate 12 % Lotion
1 applic TOPICAL BID
hydrocortisone 1 % Ointment
1 applic TOPICAL TID
metoprolol tartrate 50 mg Tablet
50 mg PO BID
Discontinued
Eliquis 2.5 mg Tablet
2.5 mg PO BID
Discharge Orders:
Discharge Patient (As Directed); Ordered 04/03/24
Ordered By: Prashant Vera
Discharge Date and Time
Print Language: MAORI
== END 2024-04-03 14:14 | disposition home health service (06) | DRG 689 ==
LOC: 4 WEST ACU 10:54
PROVIDERS: ADMITTING PHYSICIAN Hospitalist; ATTENDING PHYSICIAN Internal Medicine; EMERGENCY PHYSICIAN Emergency Medicine; FAMILY PHYSICIAN Family Medicine; OTHER PHYSICIAN Student in an Organized Health Care Education/Training Program
DX: N39.0 Urinary tract infection, site not specified (principal); G93.41 Metabolic encephalopathy; I48.19 Other persistent atrial fibrillation; I50.22 Chronic systolic (congestive) heart failure; E03.9 Hypothyroidism, unspecified; Z66 Do not resuscitate; E78.5 Hyperlipidemia, unspecified; F01.50 Vascular dementia, unspecified severity, without behavioral disturbance, psychotic disturbance, mood disturbance, and anxiety; I89.0 Lymphedema, not elsewhere classified; K21.9 Gastro-esophageal reflux disease without esophagitis; N18.31 Chronic kidney disease, stage 3a; I87.8 Other specified disorders of veins; B96.89 Other specified bacterial agents as the cause of diseases classified elsewhere; Z88.8 Allergy status to other drugs, medicaments and biological substances; Z79.01 Long term (current) use of anticoagulants; Z79.890 Hormone replacement therapy; Z86.73 Personal history of transient ischemic attack (TIA), and cerebral infarction without residual deficits; Z96.653 Presence of artificial knee joint, bilateral
CPT/HCPCS: 70450; 80048; 80053; 81003; 81015; 83605; 85025; 87070; 87077; 87086; 87186; 92526; 92610; 93005; 96374; 97116; 97163; 97166; 99285

== ENCOUNTER → 2024-04-22 10:15 | Outpatient (REF) | payer MEDICARE, OTHER, SELFPAY ==
[2024-04-22 11:02] LABS: % Immature Granulocytes 0.6 % (0-0.5); % Lymphocytes 12.2 % (20.5-51.1); % Monocytes 11.1 % (1.7-9.3); % Neutrophils 71.1 % (42.2-75.2); Absolute Basophils 0.1 10^3/uL (0-0.2); Absolute Eosinophils 0.3 10^3/uL (0-0.7); Absolute Immature Granulocytes 0.1 10^3/uL (0-0.05); Absolute Monocytes 0.9 10^3/uL (0.1-0.6); Absolute Neutrophils 5.6 10^3/uL (1.4-6.5); Hematocrit 33.9 % (37.0-47.0); Hemoglobin 11.3 g/dL (12.0-16.0); Mean Corp Hgb Conc. 33.3 g/dL (33.0-37.0); Mean Corpuscular Hgb 30.6 pg (27.0-31.0); Mean Corpuscular Volume 91.9 fL (81.0-99.0); Mean Platelet Volume 9.7 fL (7.4-10.4); Nucleated Red Blood Cells % 0 %; Platelet Count 220 10^3/uL (130-400); Red Blood Cell Count 3.69 10^6/uL (4.20-5.40); Red Cell Dist. Width 14.5 % (11.5-14.5); White Blood Cell Count 7.8 10^3/uL (4.8-10.8)
[2024-04-22 11:16] LABS: ALT (SGPT) 19 U/L (0-35); AST (SGOT) 33 U/L (14-36); Alkaline Phosphatase 182 U/L (38-126); Blood Urea Nitrogen 27 mg/dl (7-17); Calcium 8.9 mg/dl (8.4-10.2); Carbon Dioxide 27 mmol/L (22-30); Chloride 101 mmol/L (98-107); Glucose 76 mg/dl (70-99); Potassium 4.2 mmol/L (3.5-5.1); Sodium 139 mmol/L (135-145); Total Bilirubin 0.7 mg/dl (0.2-1.3); Total Protein 5.7 g/dl (6.3-8.2); eGFR > 60.00
== END ==
LOC: OLABP 10:15
PROVIDERS: ATTENDING PHYSICIAN Internal Medicine
DX: F03.90 Unspecified dementia, unspecified severity, without behavioral disturbance, psychotic disturbance, mood disturbance, and anxiety (principal)
CPT/HCPCS: 36415; 80053; 85025

== ENCOUNTER → 2024-05-01 12:03 | Outpatient (REF) | payer MEDICARE, OTHER, SELFPAY ==
[2024-05-01 12:52] LABS: % Basophils 1.4 % (0-2); % Eosinophils 5.8 % (0-6); % Immature Granulocytes 0.6 % (0-0.5); % Lymphocytes 13.4 % (20.5-51.1); % Monocytes 11.7 % (1.7-9.3); % Neutrophils 67.1 % (42.2-75.2); Absolute Basophils 0.1 10^3/uL (0-0.2); Absolute Eosinophils 0.4 10^3/uL (0-0.7); Absolute Lymphocytes 0.9 10^3/uL (1.2-3.4); Absolute Monocytes 0.8 10^3/uL (0.1-0.6); Absolute Neutrophils 4.4 10^3/uL (1.4-6.5); Hematocrit 34.5 % (37.0-47.0); Hemoglobin 11.2 g/dL (12.0-16.0); Mean Corp Hgb Conc. 32.5 g/dL (33.0-37.0); Mean Corpuscular Hgb 30.1 pg (27.0-31.0); Mean Corpuscular Volume 92.7 fL (81.0-99.0); Nucleated Red Blood Cells % 0 %; Platelet Count 242 10^3/uL (130-400); Red Blood Cell Count 3.72 10^6/uL (4.20-5.40); Red Cell Dist. Width 14.6 % (11.5-14.5); White Blood Cell Count 6.6 10^3/uL (4.8-10.8)
[2024-05-01 12:57] LABS: ALT (SGPT) 17 U/L (0-35); AST (SGOT) 28 U/L (14-36); Albumin 3.1 g/dl (3.5-5.0); Alkaline Phosphatase 167 U/L (38-126); Blood Urea Nitrogen 25 mg/dl (7-17); Calcium 9.2 mg/dl (8.4-10.2); Carbon Dioxide 26 mmol/L (22-30); Chloride 101 mmol/L (98-107); Glucose 80 mg/dl (70-99); Potassium 4.4 mmol/L (3.5-5.1); Sodium 139 mmol/L (135-145); Total Bilirubin 0.8 mg/dl (0.2-1.3); Total Protein 5.7 g/dl (6.3-8.2); eGFR > 60.00
== END ==
LOC: OLABPG 12:03
PROVIDERS: ATTENDING PHYSICIAN Internal Medicine
DX: F03.90 Unspecified dementia, unspecified severity, without behavioral disturbance, psychotic disturbance, mood disturbance, and anxiety (principal)
CPT/HCPCS: 36415; 80053; 85025

== ENCOUNTER → 2024-08-15 10:19 | Outpatient (REF) | payer MEDICARE, OTHER, SELFPAY ==
[2024-08-15 11:11] LABS: % Basophils 0.7 % (0-2); % Immature Granulocytes 0.4 % (0-0.5); % Lymphocytes 18.5 % (20.5-51.1); % Monocytes 11.8 % (1.7-9.3); % Neutrophils 65.6 % (42.2-75.2); Absolute Eosinophils 0.2 10^3/uL (0-0.7); Absolute Monocytes 0.6 10^3/uL (0.1-0.6); Absolute Neutrophils 3.5 10^3/uL (1.4-6.5); Hematocrit 39.4 % (37.0-47.0); Hemoglobin 12.4 g/dL (12.0-16.0); Mean Corp Hgb Conc. 31.5 g/dL (33.0-37.0); Mean Corpuscular Hgb 29.7 pg (27.0-31.0); Mean Corpuscular Volume 94.3 fL (81.0-99.0); Mean Platelet Volume 10.2 fL (7.4-10.4); Nucleated Red Blood Cells % 0 %; Platelet Count 156 10^3/uL (130-400); Red Blood Cell Count 4.18 10^6/uL (4.20-5.40); Red Cell Dist. Width 14.6 % (11.5-14.5); White Blood Cell Count 5.4 10^3/uL (4.8-10.8)
[2024-08-15 11:39] LABS: ALT (SGPT) 30 U/L (0-35); AST (SGOT) 41 U/L (14-36); Albumin 3.5 g/dl (3.5-5.0); Alkaline Phosphatase 133 U/L (38-126); Blood Urea Nitrogen 34 mg/dl (7-17); Calcium 8.9 mg/dl (8.4-10.2); Carbon Dioxide 30 mmol/L (22-30); Chloride 99 mmol/L (98-107); Glucose 70 mg/dl (70-99); Potassium 4.3 mmol/L (3.5-5.1); Sodium 136 mmol/L (135-145); Total Bilirubin 0.6 mg/dl (0.2-1.3); Total Protein 5.9 g/dl (6.3-8.2); eGFR 54.87
== END ==
LOC: OLABPG 10:19
PROVIDERS: ATTENDING PHYSICIAN Internal Medicine
DX: I10 Essential (primary) hypertension (principal); F03.90 Unspecified dementia, unspecified severity, without behavioral disturbance, psychotic disturbance, mood disturbance, and anxiety
CPT/HCPCS: 36415; 80053; 85025

== ENCOUNTER → 2024-08-19 11:00 | Outpatient (REF) | payer MEDICARE, OTHER, SELFPAY ==
[2024-08-19 17:31] LABS: Urine Albumin 1+ (Neg - Trace); Urine Bilirubin Negative (Negative); Urine Character Very Cloudy (Clear); Urine Color Yellow; Urine Glucose Negative (Negative); Urine Ketone Negative (Negative); Urine Leukocyte 2+ (Negative); Urine Nitrite Negative (Negative); Urine Occult Blood 3+ (Negative); Urine Urobilinogen Negative (Neg - 1+)
[2024-08-19 17:52] LABS: Urine Bacteria Many (Negative); Urine White Cell >100 /HPF (0-5)
== END ==
LOC: OLABPG 11:00
PROVIDERS: ATTENDING PHYSICIAN Internal Medicine
DX: F03.90 Unspecified dementia, unspecified severity, without behavioral disturbance, psychotic disturbance, mood disturbance, and anxiety (principal); N39.0 Urinary tract infection, site not specified
CPT/HCPCS: 81003; 81015; 87086

== ENCOUNTER 2024-09-09 10:13 | Emergency (ER) | payer MEDICARE, OTHER, SELFPAY ==
--- NOTE | 2024-09-09 10:24 | ED.GENMED ---
ED Provider Triage
<Luisa Winslow GLASS ETCHER - Last Filed: 09/09/24 10:29>
-
Patient seen by provider in Triage?: Seen in Triage
Attestation: A medical screening examination has been initiated by a qualified medical provider. Based on the assessment performed at this time, it has been determined that an emergent medical condition may exist and the patient has been informed
that further medical evaluation and possible additional diagnostic testing may be needed.
HPI: 84-year-old female she states is from home she states she was standing, denies hitting head. States she was standing, reached for something, lost balance and fell to the floor. Pt is not a good historian.
GENERAL: Alert , in no apparent distress
EYE: No visual abnormalities.
NECK: Trachea midline
ENT: No visible abnormalities.
LUNGS: No acute respiratory distress
NEUROLOGICAL: Alert and oriented
SKIN: Skin intact. No visible changes.
MUSCULOSKELETAL: Moving extremities normally
PSYCH: Confused (dementia) appropriate interaction.
This is a medical evaluation conducted in person to initiate diagnostic evaluation and provide initial therapeutics. Please see further documentation by the treating clinician.
History of Present Illness
<Luisa Winslow GLASS ETCHER - Last Filed: 09/09/24 10:29>
General
Chief Complaint: Fall
Time Seen by Provider: 09/09/24 10:24
<Manny Lazaro PA-C - Last Filed: 09/09/24 15:10>
General
Source: patient
Exam Limitations: none
History of Present Illness
History of Present Illness:
84-year-old female not anticoagulated with history of dementia presents from [place] after a fall. She states she got tangled up in her walker and fell. She did not strike her head. She complains of left wrist pain and swelling. No head strike.
She denies neck or back pain. Brought here by EMS. No other complaints at this time
Past History
<Luisa Winslow, GLASS ETCHER - Last Filed: 09/09/24 10:29>
Past History
ED Past Medical History: Arrthythmia, CHF, CVA, GERD, Hypothyroidism and Other
ED Past Surgical History: Gynecological (Hysterectomy)
Social History
Tobacco: Non-smoker
Alcohol: Occasional
Drug: None
Personal:
Living: alone
Employment: Retired
Phy Exam
<Manny Lazaro PA-C - Last Filed: 09/09/24 15:10>
Physical Exam
Physical Exam:
General: Well-appearing female no acute respiratory distress
HEENT: Normocephalic atraumatic no scalp abrasion or hematoma.
Heart: Regular rate and rhythm no murmurs lungs: Clear no wheeze
Musculoskeletal exam: Left wrist is swollen ecchymotic and tender over the distal radius. The left elbow is nontender. Good range of motion without deformity to the lower extremities bilaterally the spine is nontender
Neurologic exam: Alert conversing appropriately good sensation to the left hand
Course
<Luisa Winslow, GLASS ETCHER - Last Filed: 09/09/24 10:29>
Orders/Labs/Results
Orders:
Orders
09/09/24 10:26
Wrist, Left 3 Views CR [CR Wrist - Left Min 3 Views] Urgent
Comment:
Reason For Exam: pain, swelling after fall
09/09/24 10:27
Urinalysis Reflex To Culture Urgent
09/09/24 11:46
Complete Blood Count/With Diff Urgent
Comprehensive Metabolic Panel Urgent
09/09/24 12:20
Morphine Sulfate 4 mg IV NOW STA
Ondansetron Injectable [Zofran] 4 mg IV NOW STA
09/09/24 13:06
CR Wrist - Left Min 2 Views Urgent
Comment:
Reason For Exam: post reduction
Abnormal Lab Results
09/09/24
11:46
MCHC 31.9 L g/dL
(33.0-37.0)
RDW 14.9 H %
(11.5-14.5)
Absolute Lymphs (auto) 0.8 L 10^3/uL
(1.2-3.4)
Absolute Monos (auto) 1.0 H 10^3/uL
(0.1-0.6)
Lymphocytes % 10.6 L %
(20.5-51.1)
Monocytes % 13.6 H %
(1.7-9.3)
BUN 28 H mg/dl
(7-17)
Glucose 105 H mg/dl
(70-99)
Total Protein 6.1 L g/dl
(6.3-8.2)
09/09/24 11:46
09/09/24 11:46
Vital Signs
Initial and Last Documented VS:
Initial Vital Signs
Temp Pulse Resp BP Pulse Ox
97.8 F 115 16 144/83 100
09/09/24 10:26 09/09/24 10:26 09/09/24 10:26 09/09/24 10:26 09/09/24 10:26
Last Documented Vital Signs
Temp Pulse Resp BP Pulse Ox
97.8 F 105 16 121/80 97
09/09/24 10:26 09/09/24 14:25 09/09/24 14:25 09/09/24 14:25 09/09/24 14:25
<Manny Lazaro PA-C - Last Filed: 09/09/24 15:10>
Orders/Labs/Results
Orders:
Orders
09/09/24 10:26
Wrist, Left 3 Views CR [CR Wrist - Left Min 3 Views] Urgent
Comment:
Reason For Exam: pain, swelling after fall
09/09/24 10:27
Urinalysis Reflex To Culture Urgent
09/09/24 11:46
Complete Blood Count/With Diff Urgent
Comprehensive Metabolic Panel Urgent
09/09/24 12:20
Morphine Sulfate 4 mg IV NOW STA
Ondansetron Injectable [Zofran] 4 mg IV NOW STA
09/09/24 13:06
CR Wrist - Left Min 2 Views Urgent
Comment:
Reason For Exam: post reduction
Abnormal Lab Results
09/09/24
11:46
MCHC 31.9 L g/dL
(33.0-37.0)
RDW 14.9 H %
(11.5-14.5)
Absolute Lymphs (auto) 0.8 L 10^3/uL
(1.2-3.4)
Absolute Monos (auto) 1.0 H 10^3/uL
(0.1-0.6)
Lymphocytes % 10.6 L %
(20.5-51.1)
Monocytes % 13.6 H %
(1.7-9.3)
BUN 28 H mg/dl
(7-17)
Glucose 105 H mg/dl
(70-99)
Total Protein 6.1 L g/dl
(6.3-8.2)
09/09/24 11:46
09/09/24 11:46
Vital Signs
Initial and Last Documented VS:
Initial Vital Signs
Temp Pulse Resp BP Pulse Ox
97.8 F 115 16 144/83 100
09/09/24 10:26 09/09/24 10:26 09/09/24 10:26 09/09/24 10:09/09/24 10:26
Last Documented Vital Signs
Temp Pulse Resp BP Pulse Ox
97.8 F 105 16 121/80 97
09/09/24 10:26 09/09/24 14:25 09/09/24 14:25 09/09/24 14:25 09/09/24 14:25
<Manny Lazaro PA-C - Last Filed: 09/09/24 15:10>
*Critical Care Note
Total Time (30-74mins, 75-104mins- exclusive of procedures): Not Applicable
<Manny Lazaro PA-C - Last Filed: 09/09/24 15:10>
Update Note
Update Note:
Postreduction films demonstrated improved alignment of the distal radius fracture still with some angulation and impaction however. Patient more comfortable with the splint. I spoke with the patient's son over the telephone. He was aware he was
appreciative of minimally invasive process secondary to her dementia. He prefers that she go back to [facility] where she lives in the dementia unit. I think this is reasonable I did advise orthopedic follow-up. Stable for discharge
The fracture was reduced using hematoma block finger traps and weights as well as traction. A splint was then applied using cast padding 2 inch OCL and Isael bandages
ED Attending Note
<Luisa Winslow GLASS ETCHER - Last Filed: 09/09/24 10:29>
-
Portions of this chart may have been created with voice recognition software.� Occasional wrong word or��sound alike� substitutions may have occurred due to the inherent limitations of voice recognition software.
Discharge Plan
Departure
Patient Disposition: Home (Routine Discharge)
Date of Disposition: 09/09/24
Time of Disposition: 15:08
Patient with high blood pressure during this ER visit?: No
Discharge Problem:
Distal radius fracture, left
Instructions: Muscle, joint, and bone pain - Discharge instructions
Prescriptions:
No Action
levothyroxine 88 MCG tablet
88 mcg PO DAILY
torsemide 20 MG tablet
20 mg PO DAILY
calcium carbonate 600 MG tablet
600 mg PO DAILY
magnesium hydroxide [Milk of Magnesia] 400 mg/5 mL Suspension
400 mg PO [id number] PRN (Reason: constipation,3 days no bm)
bisacodyl [Dulcolax (bisacodyl)] 10 mg Suppository
10 mg SC DAILYPRN PRN (Reason: if no bm on 5th day or aftr mom)
Fleet Enema 19-7 gram/118 mL Enema
118 ml SC DAILYPRN PRN (Reason: no bm 6 days, dulcolax ineffect)
acetaminophen [Tylenol] 325 mg Tablet
650 mg PO Q4HPRN MDD 3000 mg PRN (Reason: mild pain/fever >100)
atorvastatin 20 mg Tablet
20 mg PO DAILY
ammonium lactate 12 % Lotion
1 applic TOPICAL BID
hydrocortisone 1 % Ointment
1 applic TOPICAL TID
metoprolol tartrate 50 mg Tablet
50 mg PO BID
nitrofurantoin monohyd/m-cryst 100 mg Capsule
100 mg PO BID 4 Days Qty: 8 0RF
Referrals:
DOC SANFORD DO [Family Provider] -
Doc Gonzalez MD [Active] -
Activity Restrictions/Additional Instructions:
Keep splint on. Elevate hand for swelling. Use Tylenol for pain. Follow-up with orthopedics
Interventions
Interventions:
*Risk Screen - Suicide Last Done: 09/09/24 10:26
*General Assessment Last Done: 09/09/24 10:38
*Neglect/Abuse Screening Last Done: 09/09/24 10:38
*ED COVID-19 Vaccine History Last Done: 09/09/24 10:38
ED-Musculoskeletal Assessment Last Done: 09/09/24 10:36
ED- Neurological Assessment Last Done: 09/09/24 10:36
ED-Skin Assessment Last Done: 09/09/24 10:36
Discharge Date and Time
Print Language: VIET[place]ESE
[2024-09-09 10:26] VITALS: BP 144/83
[2024-09-09 11:58] LABS: % Basophils 1.2 % (0-2); % Eosinophils 0.7 % (0-6); % Immature Granulocytes 0.4 % (0-0.5); % Lymphocytes 10.6 % (20.5-51.1); % Monocytes 13.6 % (1.7-9.3); % Neutrophils 73.5 % (42.2-75.2); Absolute Basophils 0.1 10^3/uL (0-0.2); Absolute Eosinophils 0.1 10^3/uL (0-0.7); Absolute Lymphocytes 0.8 10^3/uL (1.2-3.4); Absolute Neutrophils 5.4 10^3/uL (1.4-6.5); Hematocrit 40.1 % (37.0-47.0); Hemoglobin 12.8 g/dL (12.0-16.0); Mean Corp Hgb Conc. 31.9 g/dL (33.0-37.0); Mean Corpuscular Hgb 29.5 pg (27.0-31.0); Mean Corpuscular Volume 92.4 fL (81.0-99.0); Mean Platelet Volume 9.7 fL (7.4-10.4); Nucleated Red Blood Cells % 0 %; Platelet Count 202 10^3/uL (130-400); Red Blood Cell Count 4.34 10^6/uL (4.20-5.40); Red Cell Dist. Width 14.9 % (11.5-14.5); White Blood Cell Count 7.3 10^3/uL (4.8-10.8)
[2024-09-09 12:22] LABS: ALT (SGPT) 18 U/L (0-35); AST (SGOT) 30 U/L (14-36); Albumin 3.6 g/dl (3.5-5.0); Alkaline Phosphatase 120 U/L (38-126); Blood Urea Nitrogen 28 mg/dl (7-17); Calcium 9.1 mg/dl (8.4-10.2); Carbon Dioxide 26 mmol/L (22-30); Chloride 102 mmol/L (98-107); Glucose 105 mg/dl (70-99); Potassium 4.4 mmol/L (3.5-5.1); Sodium 137 mmol/L (135-145); Total Bilirubin 1.1 mg/dl (0.2-1.3); Total Protein 6.1 g/dl (6.3-8.2); eGFR > 60.00
[2024-09-09] MEDS: ZOFRAN 4 MG IV (12:31)
[2024-09-09] MEDS: MORPHINE SULFATE 4 MG IV (12:31)
[2024-09-09 12:36] VITALS: BP 114/70
[2024-09-09 14:25] VITALS: BP 121/80
== END 2024-09-09 17:47 | disposition home or self-care (01) ==
LOC: EMR 10:13
PROVIDERS: Registered Nurse; EMERGENCY PHYSICIAN Emergency Medicine; FAMILY PHYSICIAN Internal Medicine
DX: S52.572A Other intraarticular fracture of lower end of left radius, initial encounter for closed fracture (principal); S60.212A Contusion of left wrist, initial encounter; W18.39XA Other fall on same level, initial encounter; F03.90 Unspecified dementia, unspecified severity, without behavioral disturbance, psychotic disturbance, mood disturbance, and anxiety; K21.9 Gastro-esophageal reflux disease without esophagitis; E03.9 Hypothyroidism, unspecified; I50.9 Heart failure, unspecified; Z86.73 Personal history of transient ischemic attack (TIA), and cerebral infarction without residual deficits
CPT/HCPCS: 25605; 99284; 96374; 96375; 73100; 73110; 80053; 85025

== ENCOUNTER → 2024-11-20 09:56 | Outpatient (REF) | payer MEDICARE, OTHER, SELFPAY ==
[2024-11-20 10:56] LABS: % Basophils 1.5 % (0-2); % Eosinophils 3.7 % (0-6); % Immature Granulocytes 1.3 % (0-0.5); % Lymphocytes 17.6 % (20.5-51.1); % Monocytes 10.3 % (1.7-9.3); % Neutrophils 65.6 % (42.2-75.2); Absolute Basophils 0.1 10^3/uL (0-0.2); Absolute Eosinophils 0.3 10^3/uL (0-0.7); Absolute Immature Granulocytes 0.1 10^3/uL (0-0.05); Absolute Lymphocytes 1.3 10^3/uL (1.2-3.4); Absolute Monocytes 0.8 10^3/uL (0.1-0.6); Hematocrit 38.3 % (37.0-47.0); Hemoglobin 12.1 g/dL (12.0-16.0); Mean Corp Hgb Conc. 31.6 g/dL (33.0-37.0); Mean Corpuscular Hgb 29.3 pg (27.0-31.0); Mean Corpuscular Volume 92.7 fL (81.0-99.0); Mean Platelet Volume 10.9 fL (7.4-10.4); Nucleated Red Blood Cells % 0 %; Platelet Count 169 10^3/uL (130-400); Red Blood Cell Count 4.13 10^6/uL (4.20-5.40); Red Cell Dist. Width 16.3 % (11.5-14.5); White Blood Cell Count 7.6 10^3/uL (4.8-10.8)
[2024-11-20 11:06] LABS: ALT (SGPT) 19 U/L (0-35); AST (SGOT) 33 U/L (14-36); Alkaline Phosphatase 209 U/L (38-126); Blood Urea Nitrogen 37 mg/dl (7-17); Calcium 9.7 mg/dl (8.4-10.2); Carbon Dioxide 30 mmol/L (22-30); Chloride 103 mmol/L (98-107); Glucose 68 mg/dl (70-99); Potassium 4.9 mmol/L (3.5-5.1); Sodium 139 mmol/L (135-145); Total Bilirubin 1.1 mg/dl (0.2-1.3); Total Protein 5.8 g/dl (6.3-8.2); eGFR 54.87
[2024-11-20 13:13] LABS: Urine Albumin 2+ (Neg - Trace); Urine Bilirubin Negative (Negative); Urine Character Cloudy (Clear); Urine Color Yellow; Urine Glucose Negative (Negative); Urine Ketone Negative (Negative); Urine Leukocyte 3+ (Negative); Urine Nitrite Negative (Negative); Urine Occult Blood 2+ (Negative); Urine Urobilinogen Negative (Neg - 1+)
[2024-11-20 15:13] LABS: Urine White Cell >100 /HPF (0-5)
== END ==
LOC: OLABPG 09:56
PROVIDERS: ATTENDING PHYSICIAN Nurse Practitioner Gerontology; REFERRING PHYSICIAN Internal Medicine
DX: D64.9 Anemia, unspecified (principal); R53.1 Weakness; F03.90 Unspecified dementia, unspecified severity, without behavioral disturbance, psychotic disturbance, mood disturbance, and anxiety; D51.9 Vitamin B12 deficiency anemia, unspecified
CPT/HCPCS: 36415; 80053; 81003; 81015; 85025; 87086

== ENCOUNTER → 2024-11-25 15:33 | Outpatient (REF) | payer MEDICARE, OTHER, SELFPAY ==
[2024-11-25 16:14] LABS: ALT (SGPT) 21 U/L (0-35); AST (SGOT) 37 U/L (14-36); Albumin 3.6 g/dl (3.5-5.0); Alkaline Phosphatase 169 U/L (38-126); Blood Urea Nitrogen 26 mg/dl (7-17); Calcium 9.7 mg/dl (8.4-10.2); Carbon Dioxide 30 mmol/L (22-30); Chloride 101 mmol/L (98-107); Glucose 110 mg/dl (70-99); Potassium 5.1 mmol/L (3.5-5.1); Sodium 139 mmol/L (135-145); Total Protein 6.4 g/dl (6.3-8.2); eGFR 48.94
[2024-11-25 16:50] LABS: NT-proBNP 4940 pg/ml
== END ==
LOC: OLABPG 15:33
PROVIDERS: ATTENDING PHYSICIAN Nurse Practitioner Gerontology
DX: I50.30 Unspecified diastolic (congestive) heart failure (principal); R79.89 Other specified abnormal findings of blood chemistry
CPT/HCPCS: 36415; 80053; 83880

== ENCOUNTER 2024-11-26 14:46 | Inpatient (IN) | payer MEDICARE, OTHER, SELFPAY ==
[2024-11-26] VITALS (11 sets, daily range): BP systolic 91–119; BP diastolic 56–92; PULSE 2–100; BMI 22.6; BMI 24.2
[2024-11-26 09:44] LABS: Glucose - Point of Care 43 mg/dl (70-99)
[2024-11-26] MEDS: DEXTROSE 50% SYRINGE 25 GRAMS IV (09:50)
--- NOTE | 2024-11-26 10:05 | ED.GENMED ---
History of Present Illness
<Sergio Cunningham PA-C - Last Filed: 11/26/24 15:04>
General
Chief Complaint: Change in Mental Status
Source: ambulance crew
Time Seen by Provider: 11/26/24 09:45
History of Present Illness
History of Present Illness:
84-year-old female with past medical history of atrial fibrillation, CVA, hypothyroid presenting to the emergency department via EMS from [facility] where she was reportedly locked in her bedroom, found to have change in mental
status, blood sugar in the 60s. Patient unable to provide any history secondary to her current condition. Based off of record review it appears patient was recently at rehab for a distal radius fracture and had previously been admitted to this
facility in March 2024 for metabolic encephalopathy thought to be related to a urinary tract infection. At time of arrival here patient had fingerstick rechecked and her glucose was 43, I was called to the room to evaluate the patient.
Past History
<Sergio Cunningham PA-C - Last Filed: 11/26/24 15:04>
Past History
ED Past Medical History: Arrthythmia, CHF, CVA, GERD, Hypothyroidism and Other
ED Past Surgical History: Gynecological (Hysterectomy)
Social History
Tobacco: Non-smoker
Alcohol: Occasional
Drug: None
Personal:
Living: alone
Employment: Retired
Review of Systems
<Sergio Cunningham PA-C - Last Filed: 11/26/24 15:04>
Review of Systems
All Other Systems: ROS reviewed and negative except as documented in HPI and ROS
Phy Exam
<Sergio Cunningham PA-C - Last Filed: 11/26/24 15:04>
Physical Exam
Physical Exam:
GENERAL: Obtunded but airway without compromise, grimaces with sternal rub
HEAD: Normocephalic atraumatic
EYE: pupils equal and reactive, 4 mm bilateral
NECK: Supple
ENT: o/p clr, mmm.
CARDIAC: Irregularly irregular rate and rhythm with rate between 95 and 107 bpm
LUNGS: Clear breath sounds bilaterally, no acute respiratory distress, no wheezes/rales/rhonchi
ABDOMEN: Soft, without focal tenderness, no r/g, no cvat
NEUROLOGICAL: Unable to assess due to patient's obtunded state
SKIN: Warm and dry, skin intact.
MUSCULOSKELETAL: No edema, bandages to bilateral lower extremities
PSYCH: Unable to assess
Scores
<Sergio Cunningham PA-C - Last Filed: 11/26/24 15:04>
Heart Failure Risk
Heart Failure Risk Score: Not Applicable
Heart Score for Chest Pain Patients
STEMI patient?: Not applicable
Withdrawal Assessment of Alcohol
Withdrawal Assessment Completed?: Not applicable
Course
<Sergio Cunningham PA-C - Last Filed: 11/26/24 15:04>
Orders/Labs/Results
Orders:
Orders
11/26/24 09:46
Dextrose 50%-Water [Dextrose 50% Syringe] 25 grams .ROUTE .STK-MED ONE
Dextrose 50%-Water [Dextrose 50% Syringe] 25 grams IV NOW STA
11/26/24 09:47
Electrocardiogram (*1) Urgent
Reason for Study: Other
Other Reason for Exam: AMS
EKG- Treatment ONCE
11/26/24 09:57
Bedside Glucose- Treatment ONCE
11/26/24 10:00
CT Head W/o Iv Contrast Urgent
Comment:
Reason For Exam: AMS
11/26/24 10:19
COVID-19 Antigen Urgent
Source: Nasal Swab
Complete Blood Count/With Diff Urgent
Comprehensive Metabolic Panel Urgent
Creatine Phosphokinase Urgent
Comment: ADD ON TO OTHER LABS
Lactic Acid Q4H
Comment: CANCEL 2nd LACTIC ACID IF 1st LACTIC ACID IS LESS THAN 2
NT-proBNP Urgent
Comment: ADD ON
TSH Urgent
Blood Culture Q30M
AMBROCIO Source: Blood/Venous
Specimen Description:
Influenza A+B Rapid Molecular Urgent
AMBROCIO Source: Nasal Swab
Specimen Description:
11/26/24 10:30
Blood Culture Q30M
AMBROCIO Source: Blood/Venous
Specimen Description:
11/26/24 10:33
Urinalysis Reflex To Culture Urgent
Date Specimen was Collected: 11/26/24
Time Specimen was Collected: 10:32
Urine Microscopic Reflex Cult Urgent
11/26/24 11:04
Bedside Glucose- Treatment ONCE
0.9% Sodium Chloride 1000 ml [Nss] 1,000 ml IV BOLUS
11/26/24 11:26
CR Chest Portable - 1 View Urgent
Comment:
Reason For Exam: hypoxia
Reason Study Needs to be Portable: Patient Unstable
11/26/24 11:41
Piperacillin/Tazo 4.5 Gram [Zosyn] 4.5 gram in 100 ml IV NOW
11/26/24 11:48
Vancomycin [Vancocin] 1,500 mg 0.9% Sodium Chloride 500 ml [Nss] 500 ml IV NOW
11/26/24 11:55
ABG [Arterial Blood Gas] Urgent
%Oxygen/Room Air: NRB
11/26/24 12:37
Add On- LAB Routine
Tests Added?: Creatine kinase
11/26/24 13:20
Echo 2D MMode Color/Doppler Routine
Reason for Study: possible heart failure exacerbation
11/26/24 13:41
Furosemide [Lasix] 40 mg IV NOW STA
11/26/24 13:52
Admit/Transfer Patient As Directed
Co-Sign Provider:
Level of Care: Inpatient admission
Assign to:: IMU- Intermediate Care
Physician / Group: Adonis Centeno
Diagnosis: Respiratory Failure unclear etiology possible HF
Reason for Hospitalization: Respiratory Failure unclear etiology possible HF
Expected length of stay greater than two midnights?: Yes
ELOS- Estimated Length of Stay in days: 2
I certify the patient meets the requirements for IP care: Yes
PRN Pain Medication Management As Directed
May give lesser potent ordered pain med per pt: Yes
preference::
Protocol:: Medication orders for pain may be administered in a
manner that supports deferring to patient preference
when the pt is:
- Requesting an ordered lesser potent pain medication.
Least to most potent pain medications are defined
as: acetaminophen < NSAID < tramadol < opioids
(morphine, oxycodone, hydromorphone).
- Requesting a lesser dose of the same medication IF
ORDERED.
- Requesting a less intrusive route of administration
if both routes are prescribed by the provider (PO <
IV).
11/26/24 13:59
Code Status As Directed
Resuscitation Status: Do not resuscitate
Reached after discussion with pt or family/Healthcare POA: Yes
11/26/24 14:01
DNR Bracelet Application ONCE
Abnormal Lab Results
11/26/24 11/26/24 11/26/24
09:42 10:05 10:19
MCHC 30.8 L g/dL
(33.0-37.0)
RDW 16.6 H %
(11.5-14.5)
MPV 11.0 H fL
(7.4-10.4)
Abs Immat Gran (auto) 0.1 H 10^3/uL
(0-0.05)
Absolute Lymphs (auto) 0.9 L 10^3/uL
(1.2-3.4)
Immature Gran % 0.8 H %
(0-0.5)
Lymphocytes % 15.0 L %
(20.5-51.1)
BUN 28 H mg/dl
(7-17)
Creatinine 1.2 H mg/dL
(0.6-1.0)
Glucose 183 H mg/dl
(70-99)
Alkaline Phosphatase 179 H U/L
(38-126)
Total Protein 5.8 L g/dl
(6.3-8.2)
Albumin 3.0 L g/dl
(3.5-5.0)
TSH 4.71 H uIU/ml
(0.47-4.68)
Urine Albumin (Reflex)
POC Glucose 43 L* mg/dl 119 H mg/dl
(70-99) (70-99)
11/26/24 11/26/24
10:33 11:12
MCHC
RDW
MPV
Abs Immat Gran (auto)
Absolute Lymphs (auto)
Immature Gran %
Lymphocytes %
BUN
Creatinine
Glucose
Alkaline Phosphatase
Total Protein
Albumin
TSH
Urine Albumin (Reflex) 2+ A
(Neg - Trace)
POC Glucose 133 H mg/dl
(70-99)
11/26/24 10:19
11/26/24 10:19
Vital Signs
Initial and Last Documented VS:
Initial Vital Signs
Temp Pulse Resp
97.0 F 93 24
11/26/24 09:39 11/26/24 09:39 11/26/24 09:39
Last Documented Vital Signs
Temp Pulse Resp BP Pulse Ox
97.0 F 87 9 106/92 96
11/26/24 09:39 11/26/24 14:30 11/26/24 14:30 11/26/24 14:00 11/26/24 12:30
<Kenna Petersen, DO - Last Filed: 11/26/24 12:05>
Orders/Labs/Results
Orders:
Orders
11/26/24 09:46
Dextrose 50%-Water [Dextrose 50% Syringe] 25 grams .ROUTE .STK-MED ONE
Dextrose 50%-Water [Dextrose 50% Syringe] 25 grams IV NOW STA
11/26/24 09:47
Electrocardiogram (*1) Urgent
Reason for Study: Other
Other Reason for Exam: AMS
EKG- Treatment ONCE
11/26/24 09:57
Bedside Glucose- Treatment ONCE
11/26/24 10:00
CT Head W/o Iv Contrast Urgent
Comment:
Reason For Exam: AMS
11/26/24 10:19
COVID-19 Antigen Urgent
Source: Nasal Swab
Complete Blood Count/With Diff Urgent
Comprehensive Metabolic Panel Urgent
Creatine Phosphokinase Urgent
Comment: ADD ON TO OTHER LABS
Lactic Acid Q4H
Comment: CANCEL 2nd LACTIC ACID IF 1st LACTIC ACID IS LESS THAN 2
NT-proBNP Urgent
Comment: ADD ON
TSH Urgent
Blood Culture Q30M
AMBROCIO Source: Blood/Venous
Specimen Description:
Influenza A+B Rapid Molecular Urgent
AMBROCIO Source: Nasal Swab
Specimen Description:
11/26/24 10:30
Blood Culture Q30M
AMBROCIO Source: Blood/Venous
Specimen Description:
11/26/24 10:33
Urinalysis Reflex To Culture Urgent
Date Specimen was Collected: 11/26/24
Time Specimen was Collected: 10:32
Urine Microscopic Reflex Cult Urgent
11/26/24 11:04
Bedside Glucose- Treatment ONCE
0.9% Sodium Chloride 1000 ml [Nss] 1,000 ml IV BOLUS
11/26/24 11:26
CR Chest Portable - 1 View Urgent
Comment:
Reason For Exam: hypoxia
Reason Study Needs to be Portable: Patient Unstable
11/26/24 11:41
Piperacillin/Tazo 4.5 Gram [Zosyn] 4.5 gram in 100 ml IV NOW
11/26/24 11:48
Vancomycin [Vancocin] 1,500 mg 0.9% Sodium Chloride 500 ml [Nss] 500 ml IV NOW
11/26/24 11:55
ABG [Arterial Blood Gas] Urgent
%Oxygen/Room Air: NRB
11/26/24 12:37
Add On- LAB Routine
Tests Added?: Creatine kinase
11/26/24 13:20
Echo 2D MMode Color/Doppler Routine
Reason for Study: possible heart failure exacerbation
11/26/24 13:41
Furosemide [Lasix] 40 mg IV NOW STA
11/26/24 13:52
Admit/Transfer Patient As Directed
Co-Sign Provider:
Level of Care: Inpatient admission
Assign to:: IMU- Intermediate Care
Physician / Group: Adonis Centeno
Diagnosis: Respiratory Failure unclear etiology possible HF
Reason for Hospitalization: Respiratory Failure unclear etiology possible HF
Expected length of stay greater than two midnights?: Yes
ELOS- Estimated Length of Stay in days: 2
I certify the patient meets the requirements for IP care: Yes
PRN Pain Medication Management As Directed
May give lesser potent ordered pain med per pt: Yes
preference::
Protocol:: Medication orders for pain may be administered in a
manner that supports deferring to patient preference
when the pt is:
- Requesting an ordered lesser potent pain medication.
Least to most potent pain medications are defined
as: acetaminophen < NSAID < tramadol < opioids
(morphine, oxycodone, hydromorphone).
- Requesting a lesser dose of the same medication IF
ORDERED.
- Requesting a less intrusive route of administration
if both routes are prescribed by the provider (PO <
IV).
11/26/24 13:59
Code Status As Directed
Resuscitation Status: Do not resuscitate
Reached after discussion with pt or family/Healthcare POA: Yes
11/26/24 14:01
DNR Bracelet Application ONCE
Abnormal Lab Results
11/26/24 11/26/24 11/26/24
09:42 10:05 10:19
MCHC 30.8 L g/dL
(33.0-37.0)
RDW 16.6 H %
(11.5-14.5)
MPV 11.0 H fL
(7.4-10.4)
Abs Immat Gran (auto) 0.1 H 10^3/uL
(0-0.05)
Absolute Lymphs (auto) 0.9 L 10^3/uL
(1.2-3.4)
Immature Gran % 0.8 H %
(0-0.5)
Lymphocytes % 15.0 L %
(20.5-51.1)
BUN 28 H mg/dl
(7-17)
Creatinine 1.2 H mg/dL
(0.6-1.0)
Glucose 183 H mg/dl
(70-99)
Alkaline Phosphatase 179 H U/L
(38-126)
Total Protein 5.8 L g/dl
(6.3-8.2)
Albumin 3.0 L g/dl
(3.5-5.0)
TSH 4.71 H uIU/ml
(0.47-4.68)
Urine Albumin (Reflex)
POC Glucose 43 L* mg/dl 119 H mg/dl
(70-99) (70-99)
11/26/24 11/26/24
10:33 11:12
MCHC
RDW
MPV
Abs Immat Gran (auto)
Absolute Lymphs (auto)
Immature Gran %
Lymphocytes %
BUN
Creatinine
Glucose
Alkaline Phosphatase
Total Protein
Albumin
TSH
Urine Albumin (Reflex) 2+ A
(Neg - Trace)
POC Glucose 133 H mg/dl
(7099)
11/26/24 10:19
11/26/24 10:19
Vital Signs
Initial and Last Documented VS:
Initial Vital Signs
Temp Pulse Resp
97.0 F 93 24
11/26/24 09:39 11/26/24 09:39 11/26/24 09:39
Last Documented Vital Signs
Temp Pulse Resp BP Pulse Ox
97.0 F 87 9 106/92 96
11/26/24 09:39 11/26/24 14:30 11/26/24 14:30 11/26/24 14:00 11/26/24 12:30
<Sergio Cunningham PA-C - Last Filed: 11/26/24 15:04>
MDM/Problems Addressed
Differential Diagnosis Includes:
I suspect hypoglycemia secondary to infection as patient is not on any insulin or diabetic medications, urinary tract infection, COVID, flu, pneumonia, intracranial bleeding, seizure
MDM/Problems Addressed:
84-year-old female presented to the ER for evaluation of reported altered mental status, found to be locked in her bedroom, hypoglycemic. Patient treated with 25 g dextrose IV with transient improvement but patient returned to an obtunded state,
repeat blood sugar ordered. Labs, EKG, CT of the head ordered. Will consider additional 25 g of glucose and if no change may require dextrose drip. Patient will likely need admission.
Chronic conditions affecting care: Neurological disorder (Reported history of dementia)
<Sergio Cunningham PA-C - Last Filed: 11/26/24 15:04>
*Pulse Oximetry
Patient hypoxic: no
*EKG
Heart Rate: 91
Rate: normal
Rhythm: a-fib and PVC's
Ischemia: no ischemia
*[employer] Interpretation
Rate: tachycardiac
Rhythm: a-fib
Data Reviewed
Review of Other/Old Records Reveals: Labs, Records and Discharge Summary
<Kenna Petersen DO - Last Filed: 11/26/24 12:05>
*Critical Care Note
Total Time (30-74mins, 75-104mins- exclusive of procedures): 37
comment:
The high probability of a clinically significant, sudden or life threatening deterioration of the cardiopulmonary system(s) required my full and direct attention, intervention and personal management. The aggregate critical care time was 37 minutes.
This time is in addition to time spent performing reported procedures but includes the following:
[x] Data Review and interpretation
[x] Patient assessment and monitoring of vital signs
[x] Documentation
[x] Medication orders and management
<Sergio Cunningham PA-C - Last Filed: 11/26/24 15:04>
Patient Management
Discussion with other providers: Hospitalist
Escalation/DeEscalation of care consider admission/obs:
During patient's workup we were notified by nursing staff that her oxygen started to desaturate to the mid 80s. Patient was placed on 2 L via nasal cannula but had no response, this was increased to 6 L but her oxygen saturation still remained in
the upper 80s. Contacted respiratory to place patient on mid flow however they were caught up with a complication on the floor so we transition patient to a nonrebreather but she still maintained oxygen saturation in the upper 80s. Despite the
nonrebreather, patient still had her oxygen saturations started to drop again into the low 80s so we decided to place the patient on BiPAP. Following initiation of BiPAP patient's oxygen saturation went back to between 97 to 98% and she did seem to
be mentating better. Portable chest x-ray was completed which shows significant cardiomegaly but no effusions. Covering patient for infectious etiology with vancomycin and Zosyn. At this time still unclear etiology for patient's hypoglycemia and
altered mental status. I contacted both of patient's sons and discussed the case with them. Patient is a DNR/DNI but they are comfortable with the treatment plan thus far. Hospitalist team was notified and accepts for continued evaluation and
treatment.
ED Attending Note
<Sergio Cunningham PA-C - Last Filed: 11/26/24 15:04>
-
Portions of this chart may have been created with voice recognition software.� Occasional wrong word or��sound alike� substitutions may have occurred due to the inherent limitations of voice recognition software.
<Kenna Petersen DO - Last Filed: 11/26/24 12:05>
ED Attending Note
Patient seen and examined by attending physician: Yes
I performed the substantive portion of visit, reviewed & personally made and approve the management plan that is documented in note by myself or DENZEL.: Yes
I performed a history and physical exam of patient and discussed management with resident, I reviewed resident's note and agree with documented findings and plan of care.: Yes
ED Attending Note:
84-year-old female with history of A-fib, CVA, hypertension, CHF, history of UTI presenting to the emergency department for change in mental status. Patient is allegedly from independent living facility, found to be locked in her bedroom. On
medics arrival, noted to be hypoglycemic. No known history of diabetes. Patient has had previous admissions for metabolic encephalopathy from infection, UTI. Blood sugar on arrival is low in the 40s.
On exam, patient is minimally responsive. Patient also hypotensive, however on review of EMR, history of hypotension, previously on midodrine, so unclear if acute. Suspected alteration of mental status from hypoglycemia. Given no known history of
diabetes, possibly infectious in quality. No signs of trauma on exam. Pupils equal and reactive. Glucose repleted with D50. Subsequent improvement in sugar. Patient appears more responsive, however is still confused. There is some underlying
of dementia, so again unclear if acute. Plan for labs, including blood cultures. Will straight cath for urine. Will also plan for CT brain imaging. Will continue to closely monitor glucose for any additional drops. Patient placed on dextrose
containing fluids.
11:50 -sugar has remained stable. Urine without sign of infection. CT brain without acute intracranial abnormality. No leukocytosis, normal lactic acid without present concern for severe sepsis or septic shock. However, patient's oxygen
saturations continue to drop. Chest x-ray shows possible right-sided pneumonia versus pulmonary edema. Patient saturations in the 80s despite nonrebreather. Plan for VBG and possible intubation.
12:00- In discussion with son, DNR/DNI. Will place patient on BiPAP
Discharge Plan
Departure
Patient Disposition: Admit
Date of Disposition: 11/26/24
Time of Disposition: 11:42
Presentation/result/management discussed w/ accepting MD/DO: Hospitalist
Discharge Problem:
Acute alteration in mental status, Hypoglycemia, Hypoxia
Interventions
Interventions:
*Risk Screen - Suicide Last Done: 11/26/24 09:39
*General Assessment Last Done: 11/26/24 09:39
*Neglect/Abuse Screening Last Done: 11/26/24 09:39
*ED- Fall Risk Assessment Last Done: 11/26/24 09:39
*ED COVID-19 Vaccine History Last Done: 11/26/24 09:39
ED- Neurological Assessment Last Done: 11/26/24 09:39
ED- Cardiac Assessment Last Done: 11/26/24 09:39
[2024-11-26 10:07] LABS: Glucose - Point of Care 119 mg/dl (70-99)
[2024-11-26 10:48] LABS: % Basophils 1.7 % (0-2); % Eosinophils 2.5 % (0-6); % Immature Granulocytes 0.8 % (0-0.5); % Monocytes 8.4 % (1.7-9.3); % Neutrophils 71.6 % (42.2-75.2); Absolute Basophils 0.1 10^3/uL (0-0.2); Absolute Eosinophils 0.2 10^3/uL (0-0.7); Absolute Immature Granulocytes 0.1 10^3/uL (0-0.05); Absolute Lymphocytes 0.9 10^3/uL (1.2-3.4); Absolute Monocytes 0.5 10^3/uL (0.1-0.6); Absolute Neutrophils 4.3 10^3/uL (1.4-6.5); Hematocrit 40.3 % (37.0-47.0); Hemoglobin 12.4 g/dL (12.0-16.0); Mean Corp Hgb Conc. 30.8 g/dL (33.0-37.0); Mean Corpuscular Hgb 29.1 pg (27.0-31.0); Mean Corpuscular Volume 94.6 fL (81.0-99.0); Nucleated Red Blood Cells % 0 %; Platelet Count 173 10^3/uL (130-400); Red Blood Cell Count 4.26 10^6/uL (4.20-5.40); Red Cell Dist. Width 16.6 % (11.5-14.5); White Blood Cell Count 6.1 10^3/uL (4.8-10.8)
[2024-11-26 11:02] LABS: ALT (SGPT) 20 U/L (0-35); AST (SGOT) 36 U/L (14-36); Alkaline Phosphatase 179 U/L (38-126); Blood Urea Nitrogen 28 mg/dl (7-17); Calcium 9.5 mg/dl (8.4-10.2); Carbon Dioxide 30 mmol/L (22-30); Chloride 101 mmol/L (98-107); Estimated Creatinine Clearance 28 ml/min; Glucose 183 mg/dl (70-99); Potassium 4.9 mmol/L (3.5-5.1); Sodium 138 mmol/L (135-145); Total Protein 5.8 g/dl (6.3-8.2); eGFR 44.08
[2024-11-26 11:04] LABS: Lactic Acid 1.3 mmol/L (0.7-2.0)
[2024-11-26 11:05] LABS: COVID-19 Antigen Negative (Negative)
[2024-11-26 11:13] LABS: Glucose - Point of Care 133 mg/dl (70-99)
[2024-11-26 11:15] LABS: Urine Albumin 2+ (Neg - Trace); Urine Bilirubin Negative (Negative); Urine Character Clear (Clear); Urine Color Yellow; Urine Glucose Negative (Negative); Urine Ketone Negative (Negative); Urine Leukocyte Negative (Negative); Urine Nitrite Negative (Negative); Urine Occult Blood Negative (Negative); Urine Specific Gravity 1.015 (<1.030); Urine Urobilinogen Negative (Neg - 1+)
[2024-11-26] MEDS: NSS 1000 IV (11:17)
[2024-11-26] MEDS: ZOSYN 100 IV (11:46)
[2024-11-26 12:23] LABS: Urine Amorphous Seen; Urine Red Blood Cell 0-2 /HPF (0-2); Urine White Cell 0-2 /HPF (0-5)
--- NOTE | 2024-11-26 12:29 | HPS.HSE ---
Addendum entered and electronically signed by Adonis Centeno MD 11/26/24 15:07:
Hypoglycemia on presentation resolved
monitor
dextrose prn
Addendum entered and electronically signed by Adonis Centeno MD 11/26/24 15:02:
Mild ZIA Cr 1.2
possibly cardiorenal
monitor
Original Note:
Family Physician
-
Family Physician: ARVIN Allred
Chief Complaint
-
AMS
History of Present Illness
84F [facility] hx afib off anticoagulation d/t freq falls, CVA, hypothyroid, Dementia oriented only to self at baseline p/w AMS reportedly found in her bedroom, AMS/unresponsive, hypoglycemic. ED eval also concerning for hypoxia
despite nonrebreather eventually improved on BIPAP. Patient's mental status eventually improved able to communicate and follow simple commands. No memory of how or why she is in hospital. CT head noted no acute abn's. CXR noted mild interstitial
pulm edema severe cardiomegaly. neg lactic acidosis or leukocytosis. Prior to events patient was on abx for right lower ext cellulitis. BNP from day prior presentation noted elevated 4940, repeat pending. Received empiric Vanc Zosyn and 1L bolus
in ED d/t concern infectious encephalopathy. Sons Mehran and Joe POA confirm patient's DNR/DNI status. Patient confused, unable to make decisions for herself at this time. Labs also note mild ZIA. Suspect Respiratory Failure 2/2 HF once IV
lasix 40 mg ordered. Admitted to IMU
Medical History
Past Medical History
Past Medical History: Reports Other (as above)
Past Surgical History: Reports Other (as above)
Social History
Tobacco: Non-smoker
Alcohol: None
Living: Other ([facility])
Family History
Family History: Not pertinent (reviewed)
Allergies / Home Medications
Allergies reflects when Allergies were last updated in [employer].
Home Medications with original date entered in [employer]
Allergy/Medication List:
Allergies
Allergy/AdvReac Type Severity Reaction Status Date / Time
amiodarone [Amiodarone] Allergy Shortness Verified 09/09/24 10:23
of Breath
Home Medications
levothyroxine 88 mcg tablet 88 mcg PO DAILY Thyroid 07/13/20
calcium carbonate 600 mg PO DAILY Supplement 09/17/20
torsemide 20 mg tablet 30 mg PO DAILY Fluid Retention/Swelling 09/17/20
bisacodyl 10 mg rectal suppository (Dulcolax (bisacodyl)) 10 mg [place] DAILYPRN PRN if no bm on 5th day or aftr mom 03/20/24
magnesium hydroxide 400 mg/5 mL oral suspension (Milk of Magnesia) 400 mg PO [id number] PRN constipation,3 days no bm 03/20/24
sodium phosphates 19 gram-7 gram/118 mL enema (Fleet Enema) 118 ml [place] DAILYPRN PRN no bm 6 days, dulcolax ineffect 03/20/24
atorvastatin 20 mg tablet 20 mg PO DAILY High Cholesterol 03/31/24
metoprolol tartrate 50 mg tablet 12.5 mg PO BID Blood Pressure 03/31/24
acetaminophen 500 mg tablet 500 mg PO TID 11/26/24
albuterol sulfate 90 mcg/actuation aerosol inhaler 2 puff inhalation R Q4HPRN PRN sob 11/26/24
capsaicin 0.075 % topical cream 1 applic topical TID 11/26/24
fluticasone furoate 100 mcg-vilanterol 25 mcg/dose inhalation powder (Breo Ellipta) 1 inh inhalation R DAILY 11/26/24
loperamide 2 mg tablet 2 mg PO Q6HPRN PRN diarrhea 11/26/24
midodrine 2.5 mg tablet 2.5 mg PO BID 11/26/24
mirtazapine 7.5 mg tablet 7.5 mg PO HS 11/26/24
ondansetron 4 mg disintegrating tablet 4 mg PO Q8HPRN PRN nausea 11/26/24
zinc oxide 22 % topical cream 1 applic topical DAILY lower leg venous ulcers 11/26/24
Review of Systems
-
Unable to obtain full review of systems at this time due to: Other (patient confused. no reliable ROS can be obtained at this time)
Physical Exam
Vital Signs
Vital Signs
Temp Pulse Resp BP Pulse Ox
97.0 F 93 14 104/63 85
11/26/24 09:39 11/26/24 11:30 11/26/24 11:30 11/26/24 11:00 11/26/24 11:30
Physical Exam
General: Other (as below)
Laboratory Results
-
11/26/24 10:19
11/26/24 10:19
Laboratory Results
Lactic Acid Cancelled 11/26/24 14:00
Total Bilirubin 1.0 mg/dl (0.2-1.3) 11/26/24 10:19
AST 36 U/L (14-36) 11/26/24 10:19
ALT 20 U/L (0-35) 11/26/24 10:19
Alkaline Phosphatase 179 U/L (38-126) H 11/26/24 10:19
Impression/Plan
-
Physical Exam
General: No pallor, cyanosis, or jaundice.
HEENT: Throat clear. PERRLA Normocephalic atraumatic
NECK: Supple. No JVD Carotid Bruits
RESPIRATORY: Lungs clear to auscultation. No crackles wheezes stridor
CVS: S1, S2 normal. RRR. No murmur, rub or gallop.
ABDOMEN: Soft, non-tender. No distension. BS+/normal.
EXTREMITIES: No peripheral cyanosis or edema.
WEAVER TIRE CORD: Lethargic but arousable. Oriented only to self. follows simple commands
IMPRESSION:
84F [facility] hx afib off anticoagulation d/t freq falls, CVA, hypothyroid, Dementia oriented only to self at baseline p/w AMS reportedly found in her bedroom, AMS/unresponsive, hypoglycemic. ED eval also concerning for hypoxia
despite nonrebreather eventually improved on BIPAP. Patient's mental status eventually improved able to communicate and follow simple commands. No memory of how or why she is in hospital. CT head noted no acute abn's. CXR noted mild interstitial
pulm edema severe cardiomegaly. neg lactic acidosis or leukocytosis. Prior to events patient was on abx for right lower ext cellulitis. BNP from day prior presentation noted elevated 4940, repeat pending. Received empiric Vanc Zosyn and 1L bolus
in ED d/t concern infectious encephalopathy. Duong Laurent and Joe PIERRE confirm patient's DNR/DNI status. Patient confused, unable to make decisions for herself at this time. Labs also note mild ZIA. Suspect Respiratory Failure 2/2 HF once IV
lasix 40 mg ordered. Admitted to IMU
PLAN:
#Metabolic encephalopathy unclear etiology
#Hx Vascular Dementia Oriented to Person only at baseline
#Possible infectious etiology encephalopathy
#RLE cellulitis
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
IMU admit
Though AMS does not appear septic at this time, no leukocytosis or lactic acidosis, afebrile, BP stable
Cont empiric vanc and cefipime for now renally dosed. Received zosyn in ED
speech eval for possible aspiration, npo except meds for now and while on BIPAP
IV lasix once 40 mg
daily weights I/O
Check ECHO
Cardio eval
Pulm eval
Wean off BIPAP as tolerated, switch to High Flow if necessary to maintain saturations. Confirmed DNR/DNI w/ duong Peña
pending VBG results follow
#hx Atrial fibrillation off anticoagulation d/t falls
-rate controlled at this time
-cont home Metoprolol with holding parameters
-IV Lopressor prn HR persistent >120
#Hypothyroidism
-Cont home Synthroid as able
#Hyperlipidemia
-ASCVD history with vascular dementia
-hold home statin acutely
DVT prophylaxis: Heparin
CODE STATUS: DNR/DNR confirmed with sons Joe PIERRE and Kostas
Guarded prognosis
Discussed with patient and patient's sons Kostas at Bedside and Joe PIERRE over phone (lives in [place])
I spent a total of 80 minutes with the patient or on the floor. More than 50% of this time involved counseling and coordination of care.
[2024-11-26 13:08] LABS: Creatine Phosphokinase 48 U/L (30-135); TSH 4.71 uIU/ml (0.47-4.68)
[2024-11-26] MEDS: VANCOCIN 530 MG IV (13:11)
[2024-11-26] MEDS: LASIX 40 MG IV (13:59)
--- NOTE | 2024-11-26 15:27 | CON.ID ---
Consultation
-
Date/Time Consultation Requested: November 26, 2024 1512
Date/Time Consultation Performed: November 26, 2024 1530
Requesting Provider: Dr. Ash Centeno
Performing Provider: Dr. Heidi Rachel
Reason for Consultation: RLE cellulitis
Chief Complaint / Past History
Chief Complaint
Change in mental status
History of Present Illness
History obtained from review of medical records since patient has underlying dementia and unable to provide a full meaningful history. She is a 84-year-old female from [facility] with vascular dementia, CVA, atrial fibrillation not on
anticoagulation due to falls, heart failure with mildly reduced EF, lower extremity venous stasis wounds who was sent to the ER today due to decrease in mental status. Patient's glucose was 60s. In the ER fingerstick glucose 43. Mental status
improved after dextrose given. Patient also noted to be hypoxic saturating in the 80s requiring BiPAP. Chest x-ray shows mild interstitial edema with severe cardiomegaly. She received furosemide. Right lower extremity edematous and red. Patient
received vancomycin and Zosyn in the ER. She is currently on vancomycin and cefepime.
Past History
Additional Past Medical History:
Vascular dementia
CVA
Afib
CHF
CKD3
Hypothyroidism
HLD
AV fistula of left renal artery
Venous stasis
Additional Past Surgical History:
Bilateral TKA
right shoulder repair
Left subcapital femoral fracture pinning
Allergy History:
amiodarone [Amiodarone] Allergy (Verified 09/09/24 10:23)
Shortness of Breath
Medications Reviewed: Yes
Current Antibiotics:
Vancomycin
Cefepime
Social History
Tobacco: Non-Smoker
Alcohol: None
Drug: None
Living: Other ([facility])
Review of Systems
Review of Systems
Unable to obtain due to dementia.
Vital Signs
Temp Pulse Resp BP Pulse Ox
97.0 F 87 9 106/92 96
11/26/24 09:39 11/26/24 14:30 11/26/24 14:30 11/26/24 14:00 11/26/24 12:30
Physical Exam
Physical Exam
Constitutional: Acutely Ill and Chronically Ill
Head: Other
Eyes: No Conjunctival Hemorrhage and Sclera Anicteric
Cardiovascular: Irregular Rate and S1/S2
Pulmonary: Other (Decreased airway movements/breath sounds)
Gastrointestinal: Soft, Non Tender, Non Distended and Normal Bowel Sounds
Genito-Urinary: Clear Urine; Negative CVA Tenderness
Extremities: Edema (Right lower extremity 2-3+ edema) and Erythema (Right lower extremity edema from ankle to the knee, positive warmth)
Wound: Other (Distal right lower extremity - several venous stasis wounds with yellowish slough. Distal left lower extremity calf with superficial small wound without drainage, without surrounding erythema.)
Lab / Diagnostic Study Results
11/26/24 10:19
11/26/24 10:19
Abs Immat Gran (auto) 0.1 10^3/uL (0-0.05) H 11/26/24 10:19
Absolute Neuts (auto) 4.3 10^3/uL (1.4-6.5) 11/26/24 10:19
Absolute Lymphs (auto) 0.9 10^3/uL (1.2-3.4) L 11/26/24 10:19
Absolute Monos (auto) 0.5 10^3/uL (0.1-0.6) 11/26/24 10:19
Absolute Basos (auto) 0.1 10^3/uL (0-0.2) 11/26/24 10:19
Immature Gran % 0.8 % (0-0.5) H 11/26/24 10:19
Neutrophils % 71.6 % (42.2-75.2) 11/26/24 10:19
Lymphocytes % 15.0 % (20.5-51.1) L 11/26/24 10:19
Monocytes % 8.4 % (1.7-9.3) 11/26/24 10:19
Eosinophils % 2.5 % (0-6) 11/26/24 10:19
Basophils % 1.7 % (0-2) 11/26/24 10:19
Lactic Acid Cancelled 11/26/24 14:00
Ur Squamous Epith Cells 3-5 /LPF (Few) 11/26/24 10:33
Microbiology Results
Micro:
11/26/24 10:19 Influenza Types A & B (GHASSAN) - Final
Nasal Swab Negative for Influenza A & B, NAAT
Negative results must be combined with clinical observations
and patient history.
Nucleic Acid Amplification test (NAAT)performed on the
[employer] platform.
11/26/24 10:19 Blood Culture - Pending
Blood/Venous
11/26/24 10:30 Blood Culture - Pending
Blood/Venous
11/26/24 CXR: Mild interstitial pulmonary edema. Severe cardiomegaly.
Assessment / Plan
# Acute RLE cellulitis
- DC Vancomycin/cefepime.
- Deescalate to cefazolin 1g IV q8.
- Wound care.
# Change in mental status due to hypoglycemia
- mental status improved with glucose correction.
# Acute hypoxemic respiratory failure
- CXR interstitial edema
- Diuresis
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
Vascular dementia
CVA
Afib
CHF
CKD3
Hypothyroidism
HLD
AV fistula of left renal artery
Venous stasis
--- NOTE | 2024-11-26 15:53 | PHA.VAN.IN ---
Assessment
- Assessment
Renal Function: Appears elevated from baseline (1.2)
Concomitant Antimicrobials: Cefepime, Piperacillin/Tazobactam x1 dose
Plan
- Plan
Initial / Loading Dose: Vanco 1500mg loading dose administered 11/26/24 1311
Maintenance Regimen: Dose by level
Monitoring: R level 11/27/24 0600
Pharmacokinetics Vancomycin I
- -
Patient Age: 84
Patient Sex: Female
Vancomycin Day #: 1
Indication: Skin And Soft Tissue
Requesting Provider: Jacobo
Pertinent Antimicrobial Allergies:
No known antibiotics allergies
Height / Weight:
Height 5 ft 3 in
Actual Weight 57.8 kg
- Vital Signs / Lab Results
Temp Pulse Resp BP Pulse Ox
97.0 F 87 9 106/92 96
11/26/24 09:39 11/26/24 14:30 11/26/24 14:30 11/26/24 14:00 11/26/24 12:30
Lab Results - Hematology
11/26/24
10:19
WBC 6.1
Lab Results - Chemistry
11/26/24
10:19
BUN 28 H
Creatinine 1.2 H
Estimated Creat Clear 28
Albumin 3.0 L
11/26/24 11/26/24 11/26/24
10:19 13:25 14:00
Lactic Acid 1.3 Cancelled Cancelled
Lab Results - Urine
11/26/24
10:33
Urine Nitrite (Reflex) Negative
Leukocyte Esterase Rfl Negative
Urine WBC (Reflex) 0-2
Ur Squamous Epith Cells 3-5
Microbiology Results
11/26/24 10:19 Influenza Types A & B (GHASSAN) - Final
Nasal Swab Negative for Influenza A & B, NAAT
Negative results must be combined with clinical observations
and patient history.
Nucleic Acid Amplification test (NAAT)performed on the
[employer] platform.
[2024-11-26 15:54] LABS: NT-proBNP 4830 pg/ml
--- NOTE | 2024-11-26 16:08 | CON.CAR ---
Addendum entered and electronically signed by Augustine Mcclain MD 11/26/24 17:43:
I saw and examined the patient.
The Family Preservation Worker's note was reviewed and I agree with the note.
Comment:
GEN: No distress, anxious
HEENT: supple, anicteric, mmm
LUNGS: scatt rhonchi
CV: Irreg, S1/S2, 1/6 syst LSB, S3+
ABD: soft, BS+, NT/ND
EXT: No edema
NEURO: Gross non-focal
SKIN: No rash
Plan:
84-year-old female with past medical history of permanent atrial fibrillation status post ablation, chronic heart failure with preserved ejection fraction recovered cardiomyopathy, Vascular dementia, history of stroke and hypertension presents from
the memory care unit at [facility] with unresponsiveness and hypoglycemia. She was also found to be hypoxic and in acute heart failure with preserved ejection fraction. She was initially given IV fluids 1 L with her low sugars but subsequent
evaluation revealed interstitial pulmonary edema and elevated proBNP. She was then given Lasix 40 mg IV and placed on BiPAP.
With her advanced dementia I would treat her conservatively. Start Lasix 40 mg IV daily and follow creatinine.
Her blood pressure has been borderline low in the past and will continue midodrine.
Continue metoprolol for a rate control strategy. She is not anticoagulated due to history of falls and dementia.
We will repeat an echocardiogram. Last echo was reviewed with a preserved ejection fraction but severe pulm hypertension and PA pressures in the 80s.
Original Note:
Consultation
Consultation Request
Date/Time Consultation Performed: 11/26/24
Requesting Provider: Dr. Centeno
Performing Provider: Kenya Snider PA-C for Dr. Mcclain
Reason for Consultation: respiratory failure, CHF
Medical History
-
Chief Complaint: unresponsive, hypoglycemia
History of Present Illness:
Patient is an 84-year-old female with past medical history of frequent falls, lower extremity wounds, prior cardiac ablations and now felt to be in permanent atrial fibrillation, hypertension, chronic left bundle branch block, history of CVA,
vascular dementia living at [facility] care at [facility] who presented to [facility] emergency room due to unresponsiveness. Patient was reportedly locked in her bedroom, and was found to be with decreased responsiveness and confused. Blood
sugar was noted to be low at 60 by EMS. On arrival to [facility] was noted to be 43, this has been corrected with some improvement in her mentation. Was also noted to have respiratory failure and hypoxia requiring nonrebreather and
subsequently BiPAP. Initially was given a liter of fluid in the ER due to concern for sepsis, however imaging then showed mild interstitial pulmonary edema and proBNP elevated at 4830. Was given 40 mg IV Lasix and has responded well thus far. She
is chronically on torsemide 30 mg p.o. daily as outpatient. Cardiology consulted for evaluation and assistance with management. Patient currently without complaints of chest discomfort or significant shortness of breath.
PMH:
Chronic HFpEF
History of recovered cardiomyopathy
Permanent atrial fibrillation
History of prior ablations with recurrence
Not chronically anticoagulated due to frequent falls
Chronic left bundle branch block
History of stroke
Vascular dementia
Hypertension
Hyperlipidemia
Hypothyroidism
Lower extremity wounds
History of upper GI bleed
Past Medical History
Past Medical History: Other (in HPI)
Social History
Tobacco: Non-Smoker
Alcohol: None
Living: Other ([facility] care unit)
Family History
Family History: Unable to Obtain
Allergies / Home Medications
Allergy/AdvReac Type Severity Reaction Status Date / Time
amiodarone [Amiodarone] Allergy Shortness Verified 09/09/24 10:23
of Breath
�Medication �Instructions �Recorded �Confirmed �Type
levothyroxine 88 mcg tablet 88 mcg PO DAILY Thyroid 07/13/20 11/26/24 History
calcium carbonate 600 mg PO DAILY Supplement 09/17/20 11/26/24 History
torsemide 20 mg tablet 30 mg PO DAILY Fluid 09/17/20 11/26/24 History
Retention/Swelling
bisacodyl 10 mg rectal suppository 10 mg [place] DAILYPRN PRN if no bm on 03/20/24 11/26/24 History
(Dulcolax (bisacodyl)) 5th day or aftr mom
magnesium hydroxide 400 mg/5 mL 400 mg PO [id number] PRN 03/20/24 11/26/24 History
oral suspension (Milk of Magnesia) constipation,3 days no bm
sodium phosphates 19 gram-7 118 ml [place] DAILYPRN PRN no bm 6 03/20/24 11/26/24 History
gram/118 mL enema (Fleet Enema) days, dulcolax ineffect
atorvastatin 20 mg tablet 20 mg PO DAILY High Cholesterol 03/31/24 11/26/24 History
metoprolol tartrate 50 mg tablet 12.5 mg PO BID Blood Pressure 03/31/24 11/26/24 History
acetaminophen 500 mg tablet 500 mg PO TID 11/26/24 11/26/24 History
albuterol sulfate 90 mcg/actuation 2 puff inhalation R Q4HPRN PRN sob 11/26/24 11/26/24 History
aerosol inhaler
capsaicin 0.075 % topical cream 1 applic topical TID 11/26/24 11/26/24 History
fluticasone furoate 100 1 inh inhalation R DAILY 11/26/24 11/26/24 History
mcg-vilanterol 25 mcg/dose
inhalation powder (Breo Ellipta)
loperamide 2 mg tablet 2 mg PO Q6HPRN PRN diarrhea 11/26/24 11/26/24 History
midodrine 2.5 mg tablet 2.5 mg PO BID 11/26/24 11/26/24 History
mirtazapine 7.5 mg tablet 7.5 mg PO HS 11/26/24 11/26/24 History
ondansetron 4 mg disintegrating 4 mg PO Q8HPRN PRN nausea 11/26/24 11/26/24 History
tablet
zinc oxide 22 % topical cream 1 applic topical DAILY lower leg 11/26/24 11/26/24 History
venous ulcers
Review of Systems
-
History Source: Patient
All other systems: Negative unless noted
Physical Exam
Vital Signs
Temp Pulse Resp BP Pulse Ox
97.0 F 90 10 119/81 96
11/26/24 09:39 11/26/24 15:45 11/26/24 15:45 11/26/24 15:00 11/26/24 12:30
Lab Results
11/26/24 10:19
11/26/24 10:19
Gli-T-Ytwkwrgfzup Pept 4830 pg/ml 11/26/24 10:19
Physical Exam
General: No Apparent Distress and Other (on bipap)
HEENT: Normocephalic, Anicteric and Moist Mucous Membranes
Respiratory: Crackles
Cardiac: S1/S2 and Irregular Rhythm
GI: Soft, Non Tender, Non Distended and Normal Bowel Sounds
Musculoskeletal: No Clubbing, No Cyanosis and Edema (1+ of B/L LE with chronic B/L LE wounds)
Skin: Warm and Dry
Neuro: Awake, Alert and Oriented (to self)
Impression / Plan
-
Primary Nutrition Consultant: Dr. Larsen
Assessment:
Presentation with unresponsiveness
Hypoglycemia
Hypothermia
Acute hypoxic respiratory failure, requiring BiPAP
Acute on chronic HFpEF
History of recovered cardiomyopathy
Permanent atrial fibrillation
History of prior ablations with recurrence
Not chronically anticoagulated due to frequent falls
Chronic left bundle branch block
History of stroke
Vascular dementia
Hypertension
Hyperlipidemia
Hypothyroidism
Lower extremity wounds
History of upper GI bleed
DNR/DNI
ECHO 2021: EF 49%, no regional wall motion abnormalities noted, moderate LVH, posterior MAC, mild MR, mild AR, moderate to severe TR with PAP 80 mmHg, mildly dilated ascending aorta measuring 4.0 cm
Plan:
- Patient presents from [facility] with unresponsiveness and hypoglycemia, blood sugars now improved. Also with acute hypoxic respiratory failure requiring BiPAP.
- Mentation appears to be improving from arrival, follow. head CT without acute intracranial abnormalities noted.
- She was initially given a liter of fluid as there was concern for sepsis as etiology of change in mental status, however then proBNP resulted as elevated and chest x-ray showed mild pulmonary edema and was given dose of IV Lasix with good urine
output thus far. Cardiology consulted for assistance with CHF management
- Continue IV Lasix. Was on torsemide 30 mg daily prior to admission
- Check echo, last from 2021 as above. She has a history of cardiomyopathy in the past with EF as low as 30 to 35%, with subsequent improvement
- Continue low-dose Lopressor. She remains in permanent rate controlled atrial fibrillation.
- She is not chronically anticoagulated due to history of recurrent frequent falls as well as history of GI bleeding
-Chronically on midodrine 2.5 mg twice daily. Continue as needed and follow blood pressure trends
- Also noted to be hypothermic. May require Que hugger. Check TSH
- DNR DNI CODE STATUS
- Discussed with nursing
Data Reviewed
-
EKG: Tracing Personally Visualized and interpreted
Radiology: Report Reviewed by me
CT Scan: Report Reviewed by me
Medical Tests (Nuc Med, Echo etc): Report Reviewed by me
Labs: Labs Reviewed by me
Old Records: Reviewed
[2024-11-26] MEDS: ProAmatine PO (16:21)
[2024-11-26 16:51] LABS: B.E. 3.5 mmol/L; HCO3 31.1 mmol/L (21-28); O2 Saturation % 99.6 % (94-98); PCO2 59 mmHg (32-35); PO2 150 mmHg (83-108); pH 7.33 (7.35-7.45)
[2024-11-26] MEDS: HEPARIN 5000 UNITS SC ×2 (17:03→23:11)
--- NOTE | 2024-11-26 18:02 | PTCARENOTE ---
Rec'd pt on admission from ED. lethargic. on bipap. venous stasis wounds to BL lower legs. Hypothermic on kirstie huggar. O2 weaned to 6L NC. arousable. unable to answer admission assessment questions. A fib on tele.
[2024-11-26] MEDS: ANCEF 5 IV (19:54)
--- NOTE | 2024-11-26 21:47 | PTCARENOTE ---
Called marleen GARCIA) to give update on patient status.
[2024-11-26] MEDS: LOPRESSOR PO (21:51)
[2024-11-26] MEDS: DEXTROSE 50% SYRINGE 12.5 GRAMS IV (23:08)
[2024-11-26 23:17] LABS: Glucose - Point of Care 41 mg/dl (70-99)
[2024-11-26 23:41] LABS: Glucose - Point of Care 71 mg/dl (70-99)
--- NOTE | 2024-11-26 23:56 | PTCARENOTE ---
02 mid-low 80s. very difficult to get accurate sp02 reading... increased from 6L to 15L MF, now sp02 mid 90s. pt unable to tolerate bipap; pulling at mask and moaning.
pt hypoglycemic at 41. recheck after dextrose 71. ARVIN Jackson/Flor made aware blood sugars.
[2024-11-27] VITALS (18 sets, daily range): BP systolic 92–135; BP diastolic 48–78; PULSE 93–945; O2SAT 94–97; BMI 24.3
[2024-11-27] MEDS: DEXTROSE 50% SYRINGE 12.5 GRAMS IV ×3 (00:20→06:11)
[2024-11-27 01:39] LABS: Glucose - Point of Care 78 mg/dl (70-99)
[2024-11-27 04:10] LABS: Glucose - Point of Care 64 mg/dl (70-99)
--- NOTE | 2024-11-27 04:10 | W.PN.UPDATE ---
Update Note
Progress Note Update
-Despite multiple rounds of dextrose pushes patient still not maintaining her blood glucose (41-78) - D10 ordered @ 20ml/hr.
- Continue AccuCheck Q2H until until 3 consecutive AccuCheck >100.
[2024-11-27 04:27] LABS: Hematocrit 41.4 % (37.0-47.0); Hemoglobin 12.5 g/dL (12.0-16.0); Mean Corp Hgb Conc. 30.2 g/dL (33.0-37.0); Mean Corpuscular Hgb 29.3 pg (27.0-31.0); Mean Corpuscular Volume 97.2 fL (81.0-99.0); Mean Platelet Volume 10.5 fL (7.4-10.4); Platelet Count 187 10^3/uL (130-400); Red Blood Cell Count 4.26 10^6/uL (4.20-5.40); Red Cell Dist. Width 16.6 % (11.5-14.5); White Blood Cell Count 7.4 10^3/uL (4.8-10.8)
[2024-11-27 04:28] LABS: Glucose - Point of Care 76 mg/dl (70-99)
[2024-11-27] MEDS: SYNTHROID PO (04:36)
[2024-11-27] MEDS: D10W 1000 IV (04:36)
[2024-11-27 04:44] LABS: Blood Urea Nitrogen 24 mg/dl (7-17); Calcium 9.1 mg/dl (8.4-10.2); Carbon Dioxide 30 mmol/L (22-30); Chloride 105 mmol/L (98-107); Estimated Creatinine Clearance 30 ml/min; Glucose 132 mg/dl (70-99); Phosphorus 4.2 mg/dl (2.5-4.5); Potassium 4.4 mmol/L (3.5-5.1); Sodium 140 mmol/L (135-145); eGFR 48.94
--- NOTE | 2024-11-27 05:36 | PTCARENOTE ---
Patient is now on D10 @20cc/hr d/t continued hypoglycemia; Q2 hr checks in place. Que hugger remains off; normothermic. Midflow 12-15L in place, Sp02 mid 90s. Pt drowsy but able to wake up and speak few sentences. Remains NPO pending speech eval.
Voiding via purewick. No BM. Bilateral LE wound dressings intact. Sacrum intact. Fingers are cyanotic. She is AFIB on tele with frequent PVCs. Call hernandez within reach. Bed alarm set for safety.
[2024-11-27 06:13] LABS: Glucose - Point of Care 58 mg/dl (70-99)
[2024-11-27 06:42] LABS: Glucose - Point of Care 107 mg/dl (70-99)
--- NOTE | 2024-11-27 06:48 | W.PN.HOSP.TC ---
Today's Communication/Plan
-
cont diuresis
abx as per ID
wean O2 supplementation as tolerated
PT/OT
resume diet as per Speech, aspiration precautions
Assessment / Plan
Assessment / Plan
Physical Exam
General: No pallor, cyanosis, or jaundice.
HEENT: Throat clear. PERRLA Normocephalic atraumatic
NECK: Supple. No JVD Carotid Bruits
RESPIRATORY: Lungs clear to auscultation. No crackles wheezes stridor. Stable respiratory status on 6L
CVS: S1, S2 normal. RRR. No murmur, rub or gallop.
ABDOMEN: Soft, non-tender. No distension. BS+/normal.
EXTREMITIES: No peripheral cyanosis. +1 pitting edema b/l lower ext's. RLE cellulitis noted
CELL CLEANER: AOx2 disoriented to time
IMPRESSION:
84F [facility] hx afib off anticoagulation d/t freq falls, CVA, hypothyroid, Dementia oriented only to self at baseline p/w AMS reportedly found in her bedroom, AMS/unresponsive, hypoglycemic. ED eval also concerning for hypoxia
despite nonrebreather eventually improved on BIPAP. Patient's mental status eventually improved able to communicate and follow simple commands. No memory of how or why she is in hospital. CT head noted no acute abn's. CXR noted mild interstitial
pulm edema severe cardiomegaly. neg lactic acidosis or leukocytosis. Prior to events patient was on abx for right lower ext cellulitis. BNP from day prior presentation noted elevated 4940, repeat pending. Received empiric Vanc Zosyn and 1L bolus
in ED d/t concern infectious encephalopathy. Ольга Laurent and Joe PIERRE confirm patient's DNR/DNI status. Patient confused, unable to make decisions for herself at this time. Labs also note mild ZIA. Suspect Respiratory Failure 2/2 HF once IV
lasix 40 mg ordered. Admitted to IMU
PLAN:
#Metabolic encephalopathy unclear etiology possibly multifactorial
#Hx Vascular Dementia Oriented to Person and location at baseline
#Possible infectious etiology encephalopathy vs symptomatic hypoglycemia vs Hypoxia d/t Heart Failure
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
IMU admit
speech eval for possible aspiration, npo except meds for now and while on BIPAP
IV lasix 40 mg daily
daily weights I/O
ECHO appreciated EF 50% severe tricuspid regurgitation, in comparison to prior study 11/2021 RV enlarged with reduced function, IVC dilated with elevated RAP, trivial pericardial effusion, no other significant changed
Cardio eval appreciated
Pulm eval appreciated
Weaned off BIPAP
Wean O2 supplementation as tolerated
#RLE cellulitis
received empiric vanc zosyn in ED initially d/t concerns sepsis (ruled out)
ID eval appreciated abx de-escalated to Cefazolin renally dosed, cont
venous duplex appreciated no DVT
wound care consult appreciated, cont local wound care
#hx Atrial fibrillation off anticoagulation d/t falls
-rate controlled at this time
-cont home Metoprolol with holding parameters
-IV Lopressor prn HR persistent >120
#Hypothyroidism
-Cont home Synthroid as able
#Hyperlipidemia
-ASCVD history with vascular dementia
-hold home statin acutely
PT/OT appreciated SNF rehab
DVT prophylaxis: Heparin
CODE STATUS: DNR/DNR
initially Guarded prognosis since improved
Discussed with patient and patient's son Joe PIERRE over phone (lives in [place])
I spent a total of 50 minutes with the patient or on the floor. More than 50% of this time involved counseling and coordination of care.
Anticipated Discharge: 24 - 48 hours
Subjective/Interval History
-
Date of Service: November 27, 2024
Seen and examined at bedside in no acute distress. Mental status and respiratory status significantly improved. AOx2 disoriented to time (previously oriented only to self). Weaned off BIPAP to 6L. Conversant coherent.
Objective Data
-
Labs:
Laboratory Results
11/27/24
04:14
WBC 7.4
Hgb 12.5
Hct 41.4
Plt Count 187
Sodium 140
Potassium 4.4
Chloride 105
Carbon Dioxide 30
BUN 24 H
Creatinine 1.1 H
Glucose 132 H
Calcium 9.1
Vital Signs:
Vital Signs
Temp Pulse Resp BP Pulse Ox
98.4 F 108 19 108/53 92
11/27/24 03:35 11/27/24 06:31 11/27/24 06:31 11/27/24 06:31 11/27/24 06:31
I&O
11/25/24 11/26/24 11/27/24
06:59 06:59 06:59
Output Total 350 / 350
Balance -350 / -350
[2024-11-27] MEDS: SYMBICORT 80/4.5 MCG INHALER 2 PUFF INH ×2 (07:21→19:53)
--- NOTE | 2024-11-27 07:21 | CON.PUL ---
Consultation
Consultation Request
Date/Time Consultation Requested: 11/26
Date/Time Consultation Performed: 11/27
Reason for Consultation: Hypoxia
Medical History
-
History of Present Illness:
Patient is not a very good historian. History obtained from the chart, also contacted family (son). 84-year-old female with history of stroke, atrial fibrillation, presented to ED from [facility], found to have hypoglycemia,
change in mental status. Patient apparently has history of falls with fracture, metabolic encephalopathy. Upon arrival to [facility], afebrile, pulse 93, breathing at 24, 96%. White count normal. Patient developed progressive respiratory
insufficiency requiring BiPAP to maintain saturation. Patient was admitted on BiPAP. We are asked to help from pulmonary standpoint. Overnight patient was taken off BiPAP for respiratory transition to mid flow, now weaned down to 6 L, 99%.
Patient denies any chest pain, shortness of breath. When asked why she is here, she thinks it is because of the chest issue. She thinks it is 1978. She lives in home
Of note, echocardiogram was obtained 11/26. Flattened septum with D-shaped ventricle consistent with RV volume overload, EF 50%. There is reduced RV systolic function and enlarged RV size, PA pressure 75
.
PMH: Vascular dementia, memory care unit at [facility], atrial fibrillation not on anticoagulation due to falls, history of diabetes. History of bilateral TKA, right shoulder repair, history of femoral fracture with pinning, AV fistula left renal
artery, venous stasis, hypothyroidism, chronic kidney disease, hyperlipidemia
Past Medical History
Past Medical History: None (See above)
Past Surgical History: None (See above)
Social History
Tobacco: Non-smoker
Alcohol: None
Drug: None
Personal: Other ([facility] memory care unit)
Family History
Family History: Unable to Obtain
Allergies / Home Medications
Allergies
Allergy/AdvReac Type Severity Reaction Status Date / Time
amiodarone [Amiodarone] Allergy Shortness Verified 09/09/24 10:23
of Breath
Home Medications
�Medication �Instructions �Recorded �Confirmed �Last Taken �Type
levothyroxine 88 mcg tablet 88 mcg PO DAILY Thyroid 07/13/20 11/26/24 11/26/24 History
calcium carbonate 600 mg PO DAILY Supplement 09/17/20 11/26/24 11/25/24 History
torsemide 20 mg tablet 30 mg PO DAILY Fluid 09/17/20 11/26/24 11/25/24 History
Retention/Swelling
bisacodyl 10 mg rectal suppository 10 mg NC DAILYPRN PRN if no bm on 03/20/24 11/26/24 Unknown History
(Dulcolax (bisacodyl)) 5th day or aftr mom
magnesium hydroxide 400 mg/5 mL 400 mg PO [id number] PRN 03/20/24 11/26/24 Unknown History
oral suspension (Milk of Magnesia) constipation,3 days no bm
sodium phosphates 19 gram-7 118 ml NC DAILYPRN PRN no bm 6 03/20/24 11/26/24 Unknown History
gram/118 mL enema (Fleet Enema) days, dulcolax ineffect
atorvastatin 20 mg tablet 20 mg PO DAILY High Cholesterol 03/31/24 11/26/24 11/25/24 History
metoprolol tartrate 50 mg tablet 12.5 mg PO BID Blood Pressure 03/31/24 11/26/24 11/25/24 History
acetaminophen 500 mg tablet 500 mg PO TID 11/26/24 11/26/24 11/25/24 History
albuterol sulfate 90 mcg/actuation 2 puff inhalation R Q4HPRN PRN sob 11/26/24 11/26/24 Unknown History
aerosol inhaler
capsaicin 0.075 % topical cream 1 applic topical TID 11/26/24 11/26/24 Unknown History
fluticasone furoate 100 1 inh inhalation R DAILY 11/26/24 11/26/24 11/25/24 History
mcg-vilanterol 25 mcg/dose
inhalation powder (Breo Ellipta)
loperamide 2 mg tablet 2 mg PO Q6HPRN PRN diarrhea 11/26/24 11/26/24 Unknown History
midodrine 2.5 mg tablet 2.5 mg PO BID 11/26/24 11/26/24 11/25/24 History
mirtazapine 7.5 mg tablet 7.5 mg PO HS 11/26/24 11/26/24 11/25/24 History
ondansetron 4 mg disintegrating 4 mg PO Q8HPRN PRN nausea 11/26/24 11/26/24 Unknown History
tablet
zinc oxide 22 % topical cream 1 applic topical DAILY lower leg 11/26/24 11/26/24 Unknown History
venous ulcers
Review of Systems
-
Unable to Obtain full review of systems at this time due to: Dementia
Vitals / Labs / Diagnostic Testing
Vital Signs
Temp Pulse Resp BP Pulse Ox
98.4 F 108 19 108/53 92
11/27/24 03:35 11/27/24 06:31 11/27/24 06:31 11/27/24 06:31 11/27/24 06:31
Lab Data
11/27/24 04:14
11/27/24 04:14
Laboratory Results
11/26/24
16:41
pH 7.33 L
pCO2 59 H
pO2 150 H
HCO3 31.1 H
O2 Delivery Level
Microbiology
11/26/24 10:19 Nasal Swab Influenza Types A & B (GHASSAN) - Final
Negative for Influenza A & B, NAAT
Negative results must be combined with clinical observations
and patient history.
Nucleic Acid Amplification test (NAAT)performed on the
[employer] platform.
Diagnostic Testing:
Physical Exam
-
HEENT: Normocephalic and Anicteric
Cardiovascular: Irregular Rhythm, Murmur (n), Rub and Peripheral Edema (1-2+, chronic venous stasis changes)
Respiratory: Wheeze (n), Rales (n), Rhonchi (n), Non-Labored Respirations and Other (Poor inspiratory effort)
GI: Soft, Non Distended and Non Tender
Neurology: Awake, Alert and Other (Disoriented, does not know she is in the hospital, thinks it is 1975)
Skin: Other (Erythema lower extremities, no warmth, right greater than left. Gauze/dressing in place)
General: Comfortable
Assessment
-
84-year-old female with history of atrial fibrillation not on anticoagulation, chronic dementia usp resident Yesi rousseau, history of stroke, diabetes, pulm hypertension presents with mental status changes, hypoxia, hypoglycemia. Found to have
suspected right lower extremity cellulitis. We are asked to help from pulmonary standpoint regarding hypoxia
Acute hypoxic respiratory failure
Saturation in the 80s, requiring BiPAP
Weaned down to 12 L mid flow
Suspected congestive heart failure
Atrial fibrillation
Borderline hypotension
Lower extremity cellulitis
Severe pulm hypertension, PA pressure in the 80s
Hypoglycemia
Left bundle branch block
Conditions present prior to admission
Hypertension/hyperlipidemia
Atrial fibrillation, not on anticoagulation
History of multiple falls
Vascular dementia
Chronic kidney disease, Cr 1.1
Sedentary since fall 09/2024
wheelchair bound
DNR
Plan/recommendations
At this time, patient appears to be improving, oxygen has been weaned down to 6 L. She received Lasix therapy over the last 24 hours
Echocardiogram noted consistent with RV volume overload, severe pulm hypertension
CXR with suspected pulm edema, cardiomegaly per my review
Presently she is without complaints, appears comfortable, oxygen has been weaned down to 6 L, 99%
Moving forward
Continue with management primarily regarding volume status and cellulitis
Continue to follow blood sugars. Hypoglycemia noted
Normal TSH
Reviewed above with son by phone. All questions answered
We will follow-up briefly
--- NOTE | 2024-11-27 07:48 | W.PN.CARDCBS ---
Addendum entered and electronically signed by John Heath MD 11/27/24 14:30:
I saw and examined the patient.
The Clinical Quality Assurance Associate's note was reviewed and I agree with the note.
Comment: Briefly, 84-year-old woman past medical history of heart failure preserved ejection fraction presenting following an episode of unresponsiveness and was found to have hypoglycemia and hypothermia
There was evidence of acute on chronic heart failure at the time of her presentation and is currently receiving IV Lasix
No cardiac complaints but difficult historian given baseline dementia
Agree with gentle diuresis
Follow creatinine/electrolytes and wean oxygen as able
Blood pressure is marginal here requiring midodrine which limits addition of SGLT2 or MRA
Rest per Kenya Snider
Original Note:
Today's Communication / Plan
-
continue IV lasix
wean supp O2 as able
Impression / Plan
-
Primary Sap Abap Programmer: Dr. Larsen
Assessment:
Presentation with unresponsiveness
Hypoglycemia
Hypothermia
Acute hypoxic respiratory failure, requiring BiPAP
Acute on chronic HFpEF
History of recovered cardiomyopathy
Permanent atrial fibrillation
History of prior ablations with recurrence
Not chronically anticoagulated due to frequent falls
Chronic left bundle branch block
History of stroke
Vascular dementia
Hypertension
Hyperlipidemia
Hypothyroidism
Lower extremity wounds
History of upper GI bleed
DNR/DNI
ECHO 2021: EF 49%, no regional wall motion abnormalities noted, moderate LVH, posterior MAC, mild MR, mild AR, moderate to severe TR with PAP 80 mmHg, mildly dilated ascending aorta measuring 4.0 cm
Echo 11/26/2024: EF 50%, mild concentric LVH, abnormal septal motion consistent with left bundle branch block, flattened septum in diastole consistent with RV volume overload, enlarged RV size with reduced RV function, severely dilated atria, severe
TR with PAP 75 mmHg, trivial pericardial effusion, IVC severely dilated
Plan:
- Mentation improving from arrival
- Remains with persistent hypoglycemia, on dextrose drip, management per primary service
- Was able to be weaned off of BiPAP overnight. Presently on 4 L nasal cannula, continue to wean as able. Will continue IV Lasix. Creatinine stable at 1.1. Was on torsemide 30 mg daily prior to admission
- Echo with results as above, EF 50%, stable compared to prior from 2021
- Continue low-dose Lopressor. She remains in permanent rate controlled atrial fibrillation. could consider transitioning to toprol given history of CM, recovered.
- She is not chronically anticoagulated due to history of recurrent frequent falls as well as history of GI bleeding
- Chronically on midodrine 2.5 mg twice daily. Continue as needed and follow blood pressure trends
- not candidate for SGLT2 inhibitor due to chronic LE wounds and dementia/advanced age
- TSH WNL
- DNR/DNI CODE STATUS
Progress Note - Sap Abap Programmer
Subjective
Date of Service: November 27, 2024
No complaints
Objective
Labs:
11/27/24 04:14
11/27/24 04:14
Labs
Hgb 12.5 g/dL (12.0-16.0) 11/27/24 04:14
Hct 41.4 % (37.0-47.0) 11/27/24 04:14
Plt Count 187 10^3/uL (130-400) 11/27/24 04:14
Sodium 140 mmol/L (135-145) 11/27/24 04:14
Potassium 4.4 mmol/L (3.5-5.1) 11/27/24 04:14
BUN 24 mg/dl (7-17) H 11/27/24 04:14
Creatinine 1.1 mg/dL (0.6-1.0) H 11/27/24 04:14
Glucose 132 mg/dl (70-99) H 11/27/24 04:14
Vital Signs and I&O:
Vital Signs
Temp Pulse Resp BP Pulse Ox
98.4 F 100 16 108/53 96
11/27/24 03:35 11/27/24 07:22 11/27/24 07:22 11/27/24 06:31 11/27/24 07:22
Vital Signs
Temp Pulse Resp BP Pulse Ox
98.4 F 100 16 108/53 96
11/27/24 03:35 11/27/24 07:22 11/27/24 07:22 11/27/24 06:31 11/27/24 07:22
Intake & Output
11/24/24 11/25/24 11/26/24 11/27/24
07:59 07:59 07:59 07:59
Output Total 350 / 350
Balance -350 / -350
Physical Exam
Physical Exam
GEN: No distress, awake, alert, oriented to self. on supp O2
HEENT: supple, anicteric, mmm, eomi
LUNGS: Crackles B/L bases, no wheezes
CV: Irreg, S1/S2, 1/6 syst LSB, no murmur
ABD: soft, BS+, NT/ND
EXT: No cyanosis, clubbing. 1+ edema of B/L LE with LE dressings c/d/i
NEURO: Gross non-focal
SKIN: Warm, pink, dry. No rash
[2024-11-27 08:23] LABS: Glucose - Point of Care 96 mg/dl (70-99)
[2024-11-27] MEDS: LASIX IV (08:45)
[2024-11-27] MEDS: HEPARIN 5000 UNITS SC (08:45)
[2024-11-27] MEDS: LOPRESSOR PO (08:46)
[2024-11-27] MEDS: ProAmatine 2.5 MG PO ×2 (08:46→17:56)
[2024-11-27] MEDS: ANCEF 5 IV ×2 (08:50→20:19)
--- NOTE | 2024-11-27 08:53 | VNURNOTE ---
Chart reviewed. Patient is current with [facility] nursing, PT, OT. Will continue to follow hospital course and DC plans.
--- NOTE | 2024-11-27 09:52 | PTOTSP ---
Speech Therapy Swallow Assessment
Oral/pharyngeal swallow deemed within functional limits with mild increased risk for aspiration given current respiratory status and confusion.
Recommend
1. Regular solids and thin liquids. No Straws
2. Meds whole in applesauce.
3. Upright during and 30 minutes after meals.
4. ST will follow to ensure diet tolerance and/or need for diet modifications.
[2024-11-27 10:11] LABS: Glucose - Point of Care 94 mg/dl (70-99)
--- NOTE | 2024-11-27 10:15 | WOUNDNOTE ---
[facility] RN note: Patient admitted with respiratory failure, RLE cellulitis. Patient lives at memory care at [facility].
See H&P for complete history.
PMH: (from physician note:) 'PMH: Vascular dementia, memory care unit at [facility], atrial fibrillation not on anticoagulation due to falls, history of diabetes. History of bilateral TKA, right shoulder repair, history of femoral fracture with
pinning, AV fistula left renal artery, venous stasis, hypothyroidism, chronic kidney disease, hyperlipidemia'.
Wound Location and type/assessment: Patient admitted with: Bilateral Le venous stasis ulcers deep dermal and to subcutaneous layer, pink with yellow fibrin. Small yellow julian drainage. Mild redness ankles/feet. +Pedal pulses heard via portable
Doppler. Trace LE edema. Toes warm. 09/14/23 LE venous Doppler negative for DVT, no reflux. 09/14/23 Arterial Doppler R AQUILES 1.49, R TBI .72; L AQUILES 1.62, L TBI .63, multiphasic. R lower buttocks/jama thin linear red roxana. Heels blanchable red and intact.
L dorsal great toe with small scabbed abrasion. L plantar callus. Mild jama MASD.
Appetite: fair.
Pressure redistribution devices in place: Centrella Max air bed. Patient is not turning herself in bed.
Plan: Le dressings changed. Patient incontinent of small amount of urine, jama care given, patient turned to L semi side lying position using a foam turning wedge and pillow with help from JOSE Hewitt. Bilateral knee high Tubigrip applied with help
from JOSE Garcia and heels off bed with Foot Waffle boots and air chair cushion.
Dr. Centeno was in and evaluated patient during visit. Confirm orders with hospitalist including knee high compression with Tubigrip or Isael. Discussed with JOSE Hewitt.
Care plan to be updated and will follow as needed.
Recommend follow up at wound care center upon discharge.
--- NOTE | 2024-11-27 10:15 | WOUNDNOTE ---
R BUTTOCKS/RUSSELL AREA
--- NOTE | 2024-11-27 10:16 | WOUNDNOTE ---
[facility] RN note: Patient admitted with respiratory failure, RLE cellulitis. Patient lives at memory care at [facility].
See H&P for complete history.
PMH: (from physician note:) 'PMH: Vascular dementia, memory care unit at [facility], atrial fibrillation not on anticoagulation due to falls, history of diabetes. History of bilateral TKA, right shoulder repair, history of femoral fracture with
pinning, AV fistula left renal artery, venous stasis, hypothyroidism, chronic kidney disease, hyperlipidemia'.
Wound Location and type/assessment: Patient admitted with: Bilateral Le venous stasis ulcers to subcutaneous layer, pink with yellow fibrin. Small yellow julian drainage. Mild redness ankles/feet. +Pedal pulses heard via portable Doppler. Trace LE
edema. Toes warm. 09/14/23 LE venous Doppler negative for DVT, no reflux. 09/14/23 Arterial Doppler R AQUILES 1.49, R TBI .72; L AQUILES 1.62, L TBI .63, multiphasic. R lower buttocks/jaam thin linear red roxana. Heels blanchable red and intact. Mild jama MASD.
Appetite: fair.
Pressure redistribution devices in place: Centrella Max air bed. Patient is not turning herself in bed.
Plan: Le dressings changed. Patient incontinent of small amount of urine, jama care given, patient turned to L semi side lying position using a foam turning wedge and pillow with help from JOSE Hewitt. Bilateral knee high Tubigrip applied with help
from JOSE Garcia and heels off bed with Foot Waffle boots and air chair cushion.
Dr. Centeno was in and evaluated patient during visit. Confirm orders with hospitalist including knee high compression with Tubigrip or Isael. Discussed with JOSE Hewitt.
Care plan to be updated and will follow as needed.
Recommend follow up at wound care center upon discharge.
--- NOTE | 2024-11-27 10:34 | W.PN.ID1 ---
Date of Service
Date of Service: November 27, 2024
Today's Communication
Continue cefazolin.
Assessment / Plan
# Acute RLE cellulitis
- improving
-ordered US periph vasc
-Continue cefazolin 1g IV q8 (d2)
- Appreciate Wound care recs
# Acute hypoxemic respiratory failure
- CXR interstitial edema
- Improving with diuresis
# Change in mental status due to hypoglycemia
- mental status change resolved with glucose correction.
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
Vascular dementia
CVA
Afib
CHF
CKD3
Hypothyroidism
HLD
AV fistula of left renal artery
Venous stasis
Chief Complaint
-: Cellulitis
Subjective / Review of Systems
Denies pain. Denies cough.
Vital Signs / Physical Exam
Vital Signs
Vital Signs
Temp Pulse Resp BP Pulse Ox
98.1 F 100 16 95/48 96
11/27/24 08:10 11/27/24 07:22 11/27/24 07:22 11/27/24 08:46 11/27/24 07:22
Physical Exam
Constitutional: Comfortable and Chronically Ill
Cardiovascular: Irregular Rate
Pulmonary: Clear (anteriorly)
Gastrointestinal: Soft, Non Tender and Non Distended
Extremities: Edema (RLE>LLE) and Erythema (RLE erythema improving)
Neurological: Awake and Alert
Objective Data
Lab Data
Lab Results
11/27/24 04:14
11/27/24 04:14
Estimated Creat Clear 30 ml/min 11/27/24 04:14
Lactic Acid Cancelled 11/26/24 14:00
Total Bilirubin 1.0 mg/dl (0.2-1.3) 11/26/24 10:19
AST 36 U/L (14-36) 11/26/24 10:19
ALT 20 U/L (0-35) 11/26/24 10:19
Alkaline Phosphatase 179 U/L (38-126) H 11/26/24 10:19
Most recent labs reviewed.
Micro Results:
11/26/24 19:11 MRSA Screen - Pending
Nose
11/26/24 10:19 Influenza Types A & B (GHASSAN) - Final
Nasal Swab Negative for Influenza A & B, NAAT
Negative results must be combined with clinical observations
and patient history.
Nucleic Acid Amplification test (NAAT)performed on the
[employer] platform.
11/26/24 10:19 Blood Culture - Pending
Blood/Venous
11/26/24 10:30 Blood Culture - Pending
Blood/Venous
11/26/24 CXR: Mild interstitial pulmonary edema. Severe cardiomegaly.
[2024-11-27 12:06] LABS: Glucose - Point of Care 72 mg/dl (70-99)
[2024-11-27 14:43] LABS: Glucose - Point of Care 112 mg/dl (70-99)
--- NOTE | 2024-11-27 15:48 | CM ---
Addendum entered by Leona Haider RN 11/27/24 16:13:
Seen by wound care nurse.
Original Note:
Patient from [facility] with Hx dementia with Dx Acute RLE cellulitis, Acute hypoxemic respiratory failure. O2 2L. Receiving IV Abx. PT recommends skilled rehab. OT recommends LTC.
Spoke with Carlee, Die Set Up Worker [facility]Personal Care (ph [phone])
the patient resides at [facility].
She is A/O 1-2, assist of 1 for mobility, and ambulates with her RW with supervision.
She has had several falls rolling out of bed and last fell about 2 weeks ago.
DME - RW, no home O2
Discussed patient's current mobility as per PT/OT. Per Carlee, as she requires assist of 2 and is below her baseline, she would need to go to [facility] at d/c.
Spoke with son IGNACIO Diaz, who lives in [place]; he agrees with short term rehab at [facility]. He will be flying up here tomorrow morning.
Spoke with Marge, [facility]; her first availability will be Sat 11/29.
Plan [facility] Sat 11/29.
--- NOTE | 2024-11-27 16:33 | PTCARENOTE ---
pt weaned down to 2 liters o2. blood sugars checked q 2 hrs as ordered and remain above 70 this shift. d10 infusing at 40 ml/hr. pt seen by speech and ate well at lunch. pt is confused and is somewhat suspicious and uncooperative this afternoon. oob
in chair with alarm in place.
[2024-11-27] MEDS: HEPARIN SC (16:43)
[2024-11-27 16:51] LABS: Glucose - Point of Care 152 mg/dl (70-99)
[2024-11-27 18:11] LABS: Glucose - Point of Care 90 mg/dl (70-99)
[2024-11-27 20:07] LABS: Glucose - Point of Care 77 mg/dl (70-99)
[2024-11-27] MEDS: LOPRESSOR 12.5 MG PO (20:19)
[2024-11-27 22:09] LABS: Glucose - Point of Care 98 mg/dl (70-99)
[2024-11-28] VITALS (13 sets, daily range): BP systolic 89–119; BP diastolic 59–76; BMI 24.3; BMI 24.4
[2024-11-28 00:10] LABS: Glucose - Point of Care 77 mg/dl (70-99)
[2024-11-28] MEDS: HEPARIN 5000 UNITS SC ×4 (00:30→23:05)
[2024-11-28 02:10] LABS: Glucose - Point of Care 56 mg/dl (70-99)
[2024-11-28 02:29] LABS: Glucose - Point of Care 91 mg/dl (70-99)
--- NOTE | 2024-11-28 02:37 | PTCARENOTE ---
Pt is ox1 to self. afib on monitor. 96% on RA. accu check completed every 2 hours as Rx'd. Pt's blood glucose was 57 at 0157. Hypoglycemic protocol followed and repeat glucose is 91. accu checks q2 ongoing.
[2024-11-28 04:50] LABS: Glucose - Point of Care 85 mg/dl (70-99)
[2024-11-28] MEDS: SYNTHROID 88 MCG PO (05:05)
[2024-11-28 05:54] LABS: Hematocrit 39.5 % (37.0-47.0); Hemoglobin 12.1 g/dL (12.0-16.0); Mean Corp Hgb Conc. 30.6 g/dL (33.0-37.0); Mean Corpuscular Hgb 29.8 pg (27.0-31.0); Mean Corpuscular Volume 97.3 fL (81.0-99.0); Mean Platelet Volume 10.9 fL (7.4-10.4); Platelet Count 190 10^3/uL (130-400); Red Blood Cell Count 4.06 10^6/uL (4.20-5.40); Red Cell Dist. Width 16.4 % (11.5-14.5)
[2024-11-28 06:04] LABS: Glucose - Point of Care 68 mg/dl (70-99)
[2024-11-28 06:06] LABS: Blood Urea Nitrogen 25 mg/dl (7-17); Calcium 9.4 mg/dl (8.4-10.2); Carbon Dioxide 33 mmol/L (22-30); Chloride 101 mmol/L (98-107); Estimated Creatinine Clearance 28 ml/min; Glucose 78 mg/dl (70-99); Magnesium 2.1 mg/dl (1.6-2.3); Phosphorus 3.1 mg/dl (2.5-4.5); Potassium 4.9 mmol/L (3.5-5.1); Sodium 139 mmol/L (135-145); eGFR 44.08
[2024-11-28 06:28] LABS: Glucose - Point of Care 86 mg/dl (70-99)
--- NOTE | 2024-11-28 07:32 | W.PN.HOSP.TC ---
Today's Communication/Plan
-
diuresis as per Cardio
abx as per ID
stable for downgrade
planned for discharge tomorrow noon [facility] rehab
Assessment / Plan
Assessment / Plan
Physical Exam
General: No pallor, cyanosis, or jaundice.
HEENT: Throat clear. PERRLA Normocephalic atraumatic
NECK: Supple. No JVD Carotid Bruits
RESPIRATORY: Lungs clear to auscultation. No crackles wheezes stridor. Stable respiratory status on 6L
CVS: S1, S2 normal. RRR. No murmur, rub or gallop.
ABDOMEN: Soft, non-tender. No distension. BS+/normal.
EXTREMITIES: No peripheral cyanosis. +1 pitting edema b/l lower ext's. RLE cellulitis noted
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
Psych: Calm, pleasant and cheerful
IMPRESSION:
84F [facility] hx afib off anticoagulation d/t freq falls, CVA, hypothyroid, Dementia oriented only to self at baseline p/w AMS reportedly found in her bedroom, AMS/unresponsive, hypoglycemic. ED eval also concerning for hypoxia
despite nonrebreather eventually improved on BIPAP. Patient's mental status eventually improved able to communicate and follow simple commands. No memory of how or why she is in hospital. CT head noted no acute abn's. CXR noted mild interstitial
pulm edema severe cardiomegaly. neg lactic acidosis or leukocytosis. Prior to events patient was on abx for right lower ext cellulitis. BNP from day prior presentation noted elevated 4940, repeat pending. Received empiric Vanc Zosyn and 1L bolus
in ED d/t concern infectious encephalopathy. Ольга Laurent and Joe PIERRE confirm patient's DNR/DNI status. Patient confused, unable to make decisions for herself at this time. Labs also note mild ZIA. Suspect Respiratory Failure 2/2 HF once IV
lasix 40 mg ordered. Admitted to IMU
PLAN:
#Metabolic encephalopathy unclear etiology possibly multifactorial
#Hx Vascular Dementia Oriented to Person and location at baseline
#Possible infectious etiology encephalopathy vs symptomatic hypoglycemia vs Hypoxia d/t Heart Failure
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
IMU admit
speech eval for possible aspiration, npo except meds for now and while on BIPAP
IV lasix 40 mg daily to convert back to home oral torsemide 30 mg daily Sat 11/29 as per Cardio
daily weights I/O
ECHO appreciated EF 50% severe tricuspid regurgitation, in comparison to prior study 11/2021 RV enlarged with reduced function, IVC dilated with elevated RAP, trivial pericardial effusion, no other significant changed
Cardio eval appreciated
Pulm eval appreciated
Weaned off BIPAP and O2 supplementation
#RLE cellulitis
received empiric vanc zosyn in ED initially d/t concerns sepsis (ruled out)
ID eval appreciated abx de-escalated to Cefazolin renally dosed, at time of dc transition to cephalexin 500 mg Q8H thru 12/03
venous duplex appreciated no DVT
wound care consult appreciated, cont local wound care
#hx Atrial fibrillation off anticoagulation d/t falls
-rate controlled at this time
-cont home Metoprolol with holding parameters
-IV Lopressor prn HR persistent >120
#Hypothyroidism
-Cont home Synthroid as able
#Hyperlipidemia
-ASCVD history with vascular dementia
-statin resumed
PT/OT appreciated SNF rehab
DVT prophylaxis: Heparin
CODE STATUS: DNR/DNR
Medically stable for downgrade, plan for discharge tomorrow Noon [facility] rehab when bed available
Discussed with patient and patient's son Joe PIERRE over phone (lives in [place])
I spent a total of 45 minutes with the patient or on the floor. More than 50% of this time involved counseling and coordination of care.
Anticipated Discharge: Within 24 hours
Subjective/Interval History
-
Date of Service: November 28, 2024
Weaned off oxygen supplementation stable respiratory status on room air. AOx2 disoriented to time. Overall patient reports feeling well. Denies new acute issues at this time. Some memory issues noted.
Objective Data
-
Labs:
Laboratory Results
11/28/24
05:02
WBC 7.0
Hgb 12.1
Hct 39.5
Plt Count 190
Sodium 139
Potassium 4.9
Chloride 101
Carbon Dioxide 33 H
BUN 25 H
Creatinine 1.2 H
Glucose 78
Calcium 9.4
Vital Signs:
Vital Signs
Temp Pulse Resp BP Pulse Ox
98.0 F 70 17 106/68 96
11/28/24 05:29 11/28/24 06:00 11/28/24 06:00 11/28/24 06:00 11/28/24 05:20
I&O
11/27/24 11/28/24 11/29/24
06:59 06:59 06:59
Intake Total 480 / 480
Output Total 350 / 350 300 / 300
Balance -350 / -350 180 / 180
[2024-11-28] MEDS: SYMBICORT 80/4.5 MCG INHALER 2 PUFF INH ×2 (08:11→21:02)
--- NOTE | 2024-11-28 08:20 | W.PN.PUL3 ---
Today's Communication / Plan
-
Presently on room air without complaints
Chest exam is clear
Continue management per primary service, cardiology
We will sign off. Please call with questions
Assessment
-
84-year-old female with history of atrial fibrillation not on anticoagulation, chronic dementia senior living resident Yesi rousseau, history of stroke, diabetes, pulm hypertension presents with mental status changes, hypoxia, hypoglycemia. Found to have
suspected right lower extremity cellulitis. We are asked to help from pulmonary standpoint regarding hypoxia
Acute hypoxic respiratory failure
Saturation in the 80s, requiring BiPAP
Weaned down to 12 L mid flow
Suspected congestive heart failure
Atrial fibrillation
Borderline hypotension
Lower extremity cellulitis
Severe pulm hypertension, PA pressure in the 80s
Hypoglycemia
Left bundle branch block
Conditions present prior to admission
Hypertension/hyperlipidemia
Atrial fibrillation, not on anticoagulation
History of multiple falls
Vascular dementia
Chronic kidney disease, Cr 1.1
Sedentary since fall 09/2024
wheelchair bound
DNR
Plan/recommendations
At this time, patient appears to be improving, oxygen has been weaned down to room air, 96%
Echocardiogram noted consistent with RV volume overload, severe pulm hypertension
CXR with suspected pulm edema, cardiomegaly per my review
Presently she is without complaints, appears comfortable
Chest exam is clear
Moving forward
Continue with management primarily regarding volume status and cellulitis
Not sure whether weights are accurate
Continue to follow blood sugars. Hypoglycemia noted, primarily in the morning
Adjustments per primary service
Antibiotics for lower extremity cellulitis continue
Okay to continue with Symbicort, patient on Breo as outpatient. This can be resumed at time of discharge
Normal TSH
DVT prophylaxis: Remains on subcutaneous heparin
Reviewed above with son by phone on 11/27. All questions answered
We will sign off. Please call with questions
Subjective Data
-
Date of Service:
Date of Service: November 28, 2024
Subjective:
Patient feels great. She denies shortness of breath, chest pain, cough, nausea, abdominal pain. 'I want a go home'. She is on room air
Objective Data
Data Reviewed
Vital Signs / I&O / Oxygen:
Vital Signs
Temp Pulse Resp BP Pulse Ox
98.0 F 73 14 106/68 99
11/28/24 05:29 11/28/24 08:12 11/28/24 08:12 11/28/24 06:00 11/28/24 08:12
Intake and Output
11/27/24 11/28/24 11/29/24
06:59 06:59 06:59
Intake Total 480 / 480
Output Total 350 / 350 300 / 300
Balance -350 / -350 180 / 180
SaO2 99
Nasal Cannula flow liters per 2
minute
Physical Exam
General: Comfortable
HEENT: Normocephalic and Anicteric
Cardiovascular: S1-S2, Regular Rhythm, Murmur (n) and Peripheral Edema (1+, chronic wounds, bandage in place)
Respiratory: Wheeze (n), Crackles (n), Rhonchi (n) and Non-Labored Respirations
GI: Soft, Non Distended and Non Tender
Neurology: Awake, Alert and No Motor Deficits (Moves all extremities)
Skin: Good Color, Cyanosis (n), Jaundice (n), Rash (n) and Bruising (Scattered)
Labs/Micro/Reports
Lab Data
11/28/24 05:02
11/28/24 05:02
Microbiology
11/26/24 10:19 Blood/Venous Blood Culture - Preliminary
No Growth in 24 hours- Final report to follow
11/26/24 10:30 Blood/Venous Blood Culture - Preliminary
No Growth in 24 hours- Final report to follow
11/26/24 10:19 Nasal Swab Influenza Types A & B (GHASSAN) - Final
Negative for Influenza A & B, NAAT
Negative results must be combined with clinical observations
and patient history.
Nucleic Acid Amplification test (NAAT)performed on the
[employer] platform.
[2024-11-28 08:21] LABS: Glucose - Point of Care 68 mg/dl (70-99)
--- NOTE | 2024-11-28 08:34 | PN.CDI ---
CDI
- -
CDI:
Physician Documentation Request
Admit Date: 11/26/24 14:46
Dear Doctor Jacobo,
Please review the following and provide your response in the progress notes.
The purpose of this query is to ensure the accuracy of the conditions reported for your patient.
Clinical Indicators:
H+P, 11/26
#Mild ZIA Cr 1.2
#...possibly cardiorenal
ID, consult, 11/26
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
#...CKD3
Laboratory Tests
11/26/24 11/27/24 11/28/24
10:19 04:14 05:02
Creatinine 1.2 H 1.1 H 1.2 H
eGFR 44.08 48.94 44.08
Based on the above information and the clinical indicators in the record, please clarify the most accurate representation of the patient's renal status:
Acute kidney injury with no underlying CKD
Chronic stable CKD, (specify stage)
Acute kidney injury on baseline CKD, (specify stage of CKD)
Other(please specify)
Criteria for ZIA*
1 Increase in serum creatinine by > or = to 0.3 mg/dL (> or = to 26.5 micromol/L) within 48 hours, OR
2 Increase in serum creatinine to > or = to 1.5 times baseline, which is known or presumed to have occurred within 7 days, OR
3 Urine volume < 0.5 nL/kg/hour for six hours
Stages of Chronic Kidney Disease*
Level Description GFR
G1 Normal or High >90
G2 Mildly decreased 60-89
G3a Mildly to moderately decreased 45-59
G3b Moderately to severely decreased 30-44
G4 Severely decreased 15-29
G5 Kidney failure <15
Use of terms such as suspected, likely, concern for, or probable (associated with a specific diagnosis that is being evaluated, monitored, or treated as if it exists) are acceptable and can be coded in the inpatient setting, when documented at the
time of discharge.
Thank you,
Princess Faye RN BSN CCDS
CDI Specialist
Please contact via tiger text
Please use your independent medical judgment in providing your response.
*Source: Kidney Disease: Improving Global Outcomes (KDIGO) 2012
--- NOTE | 2024-11-28 09:00 | PTCARENOTE ---
Patient found with O2 off. RA sat at rest 92%. Patient OOB to chair with assist x2, O2 sat 86% on RA with activity. O2 2L NC placed 90-93%.
[2024-11-28] MEDS: LASIX 40 MG IV (10:05)
[2024-11-28] MEDS: ProAmatine 2.5 MG PO ×2 (10:05→18:23)
[2024-11-28] MEDS: ANCEF 5 IV ×2 (10:05→21:20)
[2024-11-28] MEDS: LOPRESSOR 12.5 MG PO ×2 (10:05→21:18)
[2024-11-28] MEDS: HYDROPHOR 1 APPLIC TOPICAL (10:06)
[2024-11-28] MEDS: SANTYL OINTMENT 1 APPLIC TOPICAL (10:06)
[2024-11-28 10:22] LABS: Glucose - Point of Care 119 mg/dl (70-99)
--- NOTE | 2024-11-28 11:32 | W.PN.CARDCBS ---
Addendum entered and electronically signed by Prashant Keita MD 11/28/24 12:11:
Changed to torsemide 30 mg daily in AM. Will sign off, call with questions. Follow-up has been arranged
Addendum entered and electronically signed by Prashant Keita MD 11/28/24 11:40:
I saw and examined the patient.
The DRUM SPRAYER or PA's note was reviewed and I agree with the note.
Comment: General: Well developed, well nourished in NAD.
Neck: Supple, no JVD, HJR, carotids +2 B/L, no bruits bilaterally.
Heart: Non displaced PMI, RRR, no murmurs, No S3, S4, no rubs.
Lungs: Scattered rhonchi
Extremities: No clubbing, cyanosis or edema bilaterally.
Neuro: Grossly nonfocal, awake, alert and oriented x3.
She appears improved. Will change to oral diuretics on 11/29. Outpatient follow-up arranged.
Original Note:
Today's Communication / Plan
-
consider transition to po diuretic 11/29
will arrange OP cardiac follow up
Impression / Plan
-
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
Assessment:
Presentation with unresponsiveness
Hypoglycemia
Hypothermia
Acute hypoxic respiratory failure, requiring BiPAP
Acute on chronic HFpEF
History of recovered cardiomyopathy
Permanent atrial fibrillation
History of prior ablations with recurrence
Not chronically anticoagulated due to frequent falls
Chronic left bundle branch block
History of stroke
Vascular dementia
Hypertension
Hyperlipidemia
Hypothyroidism
Lower extremity wounds
History of upper GI bleed
DNR/DNI
ECHO 2021: EF 49%, no regional wall motion abnormalities noted, moderate LVH, posterior MAC, mild MR, mild AR, moderate to severe TR with PAP 80 mmHg, mildly dilated ascending aorta measuring 4.0 cm
Echo 11/26/2024: EF 50%, mild concentric LVH, abnormal septal motion consistent with left bundle branch block, flattened septum in diastole consistent with RV volume overload, enlarged RV size with reduced RV function, severely dilated atria, severe
TR with PAP 75 mmHg, trivial pericardial effusion, IVC severely dilated
Plan:
- Appears much brighter today
- Off supplemental oxygen
- Volume status continues to improve on IV Lasix. Creatinine stable at 1.2. Will plan to transition to p.o. diuretics 11/29. Was on torsemide 30 mg daily prior to admission
- Echo with results as above, EF 50%, stable compared to prior from 2021
- Continue low-dose Lopressor. She remains in permanent rate controlled atrial fibrillation. could consider transitioning to toprol given history of CM, recovered.
- She is not chronically anticoagulated due to history of recurrent frequent falls as well as history of GI bleeding
- Chronically on midodrine 2.5 mg twice daily. Continue as needed and follow blood pressure trends
- not candidate for SGLT2 inhibitor due to chronic LE wounds and dementia/advanced age
- PT/OT
- Will arrange outpatient cardiac follow-up
- DNR/DNI CODE STATUS
Progress Note - Milk Processing Worker
Subjective
Date of Service: November 28, 2024
Confused, but pleasant. No complaints
Objective
Labs:
11/28/24 05:02
11/28/24 05:02
Labs
Hgb 12.1 g/dL (12.0-16.0) 11/28/24 05:02
Hct 39.5 % (37.0-47.0) 11/28/24 05:02
Plt Count 190 10^3/uL (130-400) 11/28/24 05:02
Sodium 139 mmol/L (135-145) 11/28/24 05:02
Potassium 4.9 mmol/L (3.5-5.1) 11/28/24 05:02
BUN 25 mg/dl (7-17) H 11/28/24 05:02
Creatinine 1.2 mg/dL (0.6-1.0) H 11/28/24 05:02
Glucose 78 mg/dl (70-99) 11/28/24 05:02
Vital Signs and I&O:
Vital Signs
Temp Pulse Resp BP Pulse Ox
97.5 F 73 14 106/68 99
11/28/24 07:35 11/28/24 08:12 11/28/24 08:12 11/28/24 06:00 11/28/24 08:12
Vital Signs
Temp Pulse Resp BP Pulse Ox
97.5 F 73 14 106/68 99
11/28/24 07:35 11/28/24 08:12 11/28/24 08:12 11/28/24 06:00 11/28/24 08:12
Intake & Output
11/26/24 11/27/24 11/28/24 11/29/24
07:59 07:59 07:59 07:59
Intake Total 480 / 480
Output Total 350 / 350 300 / 300
Balance -350 / -350 180 / 180
Physical Exam
Physical Exam
GEN: No distress, awake, alert, oriented to self.
HEENT: supple, anicteric, mmm, eomi
LUNGS: Scattered wheezes
CV: Irreg, S1/S2, 1/6 syst LSB, no murmur
ABD: soft, BS+, NT/ND
EXT: No cyanosis, clubbing. 1+ edema of B/L LE with LE dressings c/d/i
NEURO: Gross non-focal
SKIN: Warm, pink, dry. No rash
--- NOTE | 2024-11-28 12:03 | W.PN.ID1 ---
Date of Service
Date of Service: November 28, 2024
Today's Communication
At time of dc, can transition to cephalexin 500mg po q8H through 12/03.
Assessment / Plan
# Acute RLE cellulitis: improving
-US periph vasc - no DVT
-Continue cefazolin 1g IV q8 (d3)
- At time of dc, can transition to cephalexin 500mg po q8H through 12/03.
- Appreciate Wound care recs
# Acute hypoxemic respiratory failure, now off O2.
- CXR interstitial edema
- Improving with diuresis
# Change in mental status due to hypoglycemia
- mental status change resolved with glucose correction.
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
Vascular dementia
CVA
Afib
CHF
CKD3
Hypothyroidism
HLD
AV fistula of left renal artery
Venous stasis
Chief Complaint
-: Cellulitis
Subjective / Review of Systems
No complaints.
Vital Signs / Physical Exam
Vital Signs
Vital Signs
Temp Pulse Resp BP Pulse Ox
97.5 F 73 14 106/68 99
11/28/24 07:35 11/28/24 08:12 11/28/24 08:12 11/28/24 06:00 11/28/24 08:12
Physical Exam
Constitutional: No Acute Distress and Chronically Ill
Cardiovascular: Irregular Rate
Pulmonary: Clear (anteriorly)
Gastrointestinal: Soft, Non Tender and Non Distended
Extremities: Edema (RLE>LLE) and Erythema (RLE erythema improving, now mild)
Wound: Other (BLE venous stasis wounds, right posterior ankle dressing with yellow strike-through)
Neurological: Awake and Alert
Objective Data
Lab Data
Lab Results
11/28/24 05:02
11/28/24 05:02
Estimated Creat Clear 28 ml/min 11/28/24 05:02
Lactic Acid Cancelled 11/26/24 14:00
Total Bilirubin 1.0 mg/dl (0.2-1.3) 11/26/24 10:19
AST 36 U/L (14-36) 11/26/24 10:19
ALT 20 U/L (0-35) 11/26/24 10:19
Alkaline Phosphatase 179 U/L (38-126) H 11/26/24 10:19
Most recent labs reviewed.
Micro Results:
11/26/24 10:30 Blood Culture - Preliminary
Blood/Venous No Growth in 48 hours- Final report to follow
11/26/24 10:19 Blood Culture - Preliminary
Blood/Venous No Growth in 48 hours- Final report to follow
11/26/24 19:11 MRSA Screen - Final
Nose No Methicillin Resistant Staphylococcus aureus isolated.
11/26/24 10:19 Influenza Types A & B (GHASSAN) - Final
Nasal Swab Negative for Influenza A & B, NAAT
Negative results must be combined with clinical observations
and patient history.
Nucleic Acid Amplification test (NAAT)performed on the
[employer] platform.
11/26/24 CXR: Mild interstitial pulmonary edema. Severe cardiomegaly.
[2024-11-28 12:24] LABS: Glucose - Point of Care 91 mg/dl (70-99)
--- NOTE | 2024-11-28 13:05 | PTCARENOTE ---
Patient OOb to chair with max assist x2 and walker. Patient tolerated sitting in chair for 3 hours. Son at bedside. Patient is eating 100% of meals. Patient has c/o pain when bearing weight on RLE.
--- NOTE | 2024-11-28 13:33 | CM ---
Patient from [facility] with Hx dementia with Dx Acute RLE cellulitis, Acute hypoxemic respiratory failure. O2 2L. Receiving IV Abx. Seen by wound care nurse. PT recommends skilled rehab. OT recommends LTC. Per nurse assessment; confused.
Spoke with Marge, [facility]; they are able to accept the patient tomorrow. The contact for the Nurse Wharf Tally Clerk is [phone]. The ph for nurse report to the 3rd floor [phone], fax [phone]. Marge is aware of 12 noon transport
tomorrow.
Met with patient and son Joe, both agreed to d/c tomorrow to [facility]. IMM completed. Son is aware noon transport requested for tomorrow.
Plan [facility] tomorrow with noon ambulance transport.
[2024-11-28 16:14] LABS: Glucose - Point of Care 157 mg/dl (70-99)
[2024-11-28 20:17] LABS: Glucose - Point of Care 147 mg/dl (70-99)
[2024-11-28] MEDS: REMERON 7.5 MG PO (21:18)
[2024-11-28 22:13] LABS: Glucose - Point of Care 106 mg/dl (70-99)
[2024-11-29] VITALS (15 sets, daily range): BP systolic 84–120; BP diastolic 50–101; O2SAT 91; BMI 24.7
[2024-11-29] MEDS: HALDOL 0.5 MG IV (00:21)
--- NOTE | 2024-11-29 00:47 | PTCARENOTE ---
Pt oriented only to self. Throughout the shift, pt has set off the bed alarm attempting to get OOB. Pt has been confused and restless. Pt has recently become agitated and PRN Haldol given per Rx (see MAR). Rx for EKG entered for am per protocol. Pt
resting in bed with call hernandez in reach and bed alarm on.
[2024-11-29 04:38] LABS: Glucose - Point of Care 71 mg/dl (70-99)
[2024-11-29 05:09] LABS: Hematocrit 39.2 % (37.0-47.0); Mean Corp Hgb Conc. 30.6 g/dL (33.0-37.0); Mean Corpuscular Hgb 29.3 pg (27.0-31.0); Mean Corpuscular Volume 95.8 fL (81.0-99.0); Mean Platelet Volume 10.8 fL (7.4-10.4); Platelet Count 185 10^3/uL (130-400); Red Blood Cell Count 4.09 10^6/uL (4.20-5.40); Red Cell Dist. Width 16.4 % (11.5-14.5); White Blood Cell Count 8.7 10^3/uL (4.8-10.8)
[2024-11-29 05:38] LABS: Blood Urea Nitrogen 23 mg/dl (7-17); Calcium 9.5 mg/dl (8.4-10.2); Carbon Dioxide 29 mmol/L (22-30); Chloride 103 mmol/L (98-107); Estimated Creatinine Clearance 42 ml/min; Glucose 73 mg/dl (70-99); Magnesium 2.1 mg/dl (1.6-2.3); Phosphorus 2.6 mg/dl (2.5-4.5); Potassium 4.9 mmol/L (3.5-5.1); Sodium 137 mmol/L (135-145); eGFR > 60.00
[2024-11-29] MEDS: SYNTHROID 88 MCG PO (06:04)
--- NOTE | 2024-11-29 06:31 | W.PN.HOSP.TC ---
Today's Communication/Plan
-
remains medically stable for downgrade
hold discharge d/t behavioral issues overnight required IV haldol
prn haldol switched to Ativan d/t QT prolongation
cont abx as per ID
wean O2 supplementation as tolerated
out of bed to chair
Assessment / Plan
Assessment / Plan
Physical Exam
General: No pallor, cyanosis, or jaundice.
HEENT: Throat clear. PERRLA Normocephalic atraumatic
NECK: Supple. No JVD Carotid Bruits
RESPIRATORY: Lungs clear to auscultation. No crackles wheezes stridor. Stable respiratory status on 2L
CVS: S1, S2 normal. RRR. No murmur, rub or gallop.
ABDOMEN: Soft, non-tender. No distension. BS+/normal.
EXTREMITIES: No peripheral cyanosis. +1 pitting edema b/l lower ext's. RLE cellulitis noted
MATERIALS TECHNICIAN: Oriented only to self
Psych: Confused, anxious/agitated
IMPRESSION:
84F [facility] hx afib off anticoagulation d/t freq falls, CVA, hypothyroid, Dementia oriented only to self at baseline p/w AMS reportedly found in her bedroom, AMS/unresponsive, hypoglycemic. ED eval also concerning for hypoxia
despite nonrebreather eventually improved on BIPAP. Patient's mental status eventually improved able to communicate and follow simple commands. No memory of how or why she is in hospital. CT head noted no acute abn's. CXR noted mild interstitial
pulm edema severe cardiomegaly. neg lactic acidosis or leukocytosis. Prior to events patient was on abx for right lower ext cellulitis. BNP from day prior presentation noted elevated 4940, repeat pending. Received empiric Vanc Zosyn and 1L bolus
in ED d/t concern infectious encephalopathy. Ольга Laurent and Joe PIERRE confirm patient's DNR/DNI status. Patient confused, unable to make decisions for herself at this time. Labs also note mild ZIA. Suspect Respiratory Failure 2/2 HF once IV
lasix 40 mg ordered. Admitted to IMU
PLAN:
#Agitation confusion overnight 11/28-11/29 required IV haldol as per night staff
#QT prolongation
prn IV Haldol switched to prn ativan
Psych eval appreciated
Discharge held pending improvement in mental status/behavior
Mirtazapine place on hold (agitation/confusion started after medication was resumed, unclear if related)
#Metabolic encephalopathy unclear etiology possibly multifactorial
#Hx Vascular Dementia Oriented to Person and location at baseline
#Possible infectious etiology encephalopathy vs symptomatic hypoglycemia vs Hypoxia d/t Heart Failure
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
IMU admit
speech eval for possible aspiration, npo except meds for now and while on BIPAP
IV lasix 40 mg daily to convert back to home oral torsemide 30 mg daily Sat 11/29 as per Cardio
daily weights I/O
ECHO appreciated EF 50% severe tricuspid regurgitation, in comparison to prior study 11/2021 RV enlarged with reduced function, IVC dilated with elevated RAP, trivial pericardial effusion, no other significant changed
Cardio eval appreciated
Pulm eval appreciated
Weaned off BIPAP
wean O2 supplementation as tolerated
#RLE cellulitis
received empiric vanc zosyn in ED initially d/t concerns sepsis (ruled out)
ID eval appreciated abx de-escalated to Cefazolin renally dosed, at time of dc transition to cephalexin 500 mg Q8H thru 12/03
venous duplex appreciated no DVT
wound care consult appreciated, cont local wound care
#hx Atrial fibrillation off anticoagulation d/t falls
-rate controlled at this time
-cont home Metoprolol with holding parameters
-IV Lopressor prn HR persistent >120
#Hypothyroidism
-Cont home Synthroid as able
#Hyperlipidemia
-ASCVD history with vascular dementia
-statin resumed
PT/OT appreciated SNF rehab
DVT prophylaxis: Heparin
CODE STATUS: DNR/DNR
Remains Medically stable for downgrade, plan for discharge [facility] rehab on hold pending improvement mental status/behavior as above
Discussed with patient and patient's son Joe (flew in From [place])
I spent a total of 50 minutes with the patient or on the floor. More than 50% of this time involved counseling and coordination of care.
Anticipated Discharge: 24 - 48 hours
Subjective/Interval History
-
Date of Service: November 29, 2024
Confused oriented only to self. overnight events notable for confusion/agitation required IV haldol overnight.
Objective Data
-
Labs:
Laboratory Results
11/29/24
04:26
WBC 8.7
Hgb 12.0
Hct 39.2
Plt Count 185
Sodium 137
Potassium 4.9
Chloride 103
Carbon Dioxide 29
BUN 23 H
Creatinine 0.8
Glucose 73
Calcium 9.5
Vital Signs:
Vital Signs
Temp Pulse Resp BP Pulse Ox
97.4 F 80 16 117/81 97
11/29/24 02:33 11/29/24 04:00 11/29/24 04:00 11/29/24 04:00 11/29/24 04:00
I&O
11/27/24 11/28/24 11/29/24
06:59 06:59 06:59
Intake Total 480 / 480 600 / 600
Output Total 350 / 350 300 / 300
Balance -350 / -350 180 / 180 600 / 600
[2024-11-29] MEDS: SYMBICORT 80/4.5 MCG INHALER 2 PUFF INH ×2 (07:24→17:57)
[2024-11-29 08:18] LABS: Glucose - Point of Care 72 mg/dl (70-99)
--- NOTE | 2024-11-29 08:21 | W.PN.ID1 ---
Date of Service
Date of Service: November 29, 2024
Today's Communication
Continue antibiotics.
Assessment / Plan
# Acute RLE cellulitis: improving
- US periph vasc - no DVT
- Continue cefazolin 1g IV q8 (d#4)
- At time of dc, can transition to cephalexin 500mg po q8H, to continue through 12/03.
- Appreciate Wound care recs
# Acute hypoxemic respiratory failure, now off O2.
- CXR interstitial edema
- Improving with diuresis
# Change in mental status due to hypoglycemia
- mental status change resolved with glucose correction.
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
Vascular dementia
CVA
Afib
CHF
CKD3
Hypothyroidism
HLD
AV fistula of left renal artery
Lower extremity venous stasis
Chief Complaint
-: Cellulitis (Right lower extremity)
Subjective / Review of Systems
Review of Systems: No Fever and No Chills
Vital Signs / Physical Exam
Vital Signs
Vital Signs
Temp Pulse Resp BP Pulse Ox
97.4 F 86 16 117/81 97
11/29/24 02:33 11/29/24 07:24 11/29/24 07:24 11/29/24 04:00 11/29/24 07:24
Physical Exam
Constitutional: No Acute Distress and Chronically Ill
Cardiovascular: Irregular Rate
Pulmonary: Clear (anteriorly)
Gastrointestinal: Soft, Non Tender and Non Distended
Extremities: Edema (RLE>LLE) and Erythema (RLE erythema; mild)
Wound: Other (BLE venous stasis wounds dressed.)
Neurological: Awake and Alert
Psychological: Calm
Objective Data
Lab Data
Lab Results
11/29/24 04:26
11/29/24 04:26
Estimated Creat Clear 42 ml/min 11/29/24 04:26
Lactic Acid Cancelled 11/26/24 14:00
Total Bilirubin 1.0 mg/dl (0.2-1.3) 11/26/24 10:19
AST 36 U/L (14-36) 11/26/24 10:19
ALT 20 U/L (0-35) 11/26/24 10:19
Alkaline Phosphatase 179 U/L (38-126) H 11/26/24 10:19
Most recent labs reviewed.
Micro Results:
11/26/24 10:30 Blood Culture - Preliminary
Blood/Venous No Growth in 48 hours- Final report to follow
11/26/24 10:19 Blood Culture - Preliminary
Blood/Venous No Growth in 48 hours- Final report to follow
11/26/24 19:11 MRSA Screen - Final
Nose No Methicillin Resistant Staphylococcus aureus isolated.
11/26/24 10:19 Influenza Types A & B ([facility]) - Final
Nasal Swab Negative for Influenza A & B, NAAT
Negative results must be combined with clinical observations
and patient history.
Nucleic Acid Amplification test (NAAT)performed on the
Workable platform.
11/26/24 CXR: Mild interstitial pulmonary edema. Severe cardiomegaly.
[2024-11-29] MEDS: LIPITOR 20 MG PO (08:49)
[2024-11-29] MEDS: HEPARIN 5000 UNITS SC ×3 (08:49→23:51)
[2024-11-29] MEDS: DEMADEX 30 MG PO (08:50)
[2024-11-29] MEDS: ProAmatine 2.5 MG PO ×2 (08:51→16:33)
[2024-11-29] MEDS: LOPRESSOR 12.5 MG PO ×2 (08:51→20:22)
[2024-11-29] MEDS: SANTYL OINTMENT 1 APPLIC TOPICAL (08:51)
[2024-11-29] MEDS: HYDROPHOR 1 APPLIC TOPICAL (08:52)
[2024-11-29] MEDS: ANCEF 5 IV ×2 (11:03→20:19)
[2024-11-29 12:04] LABS: Glucose - Point of Care 145 mg/dl (70-99)
--- NOTE | 2024-11-29 13:04 | PTCARENOTE ---
Pt presents as assessed. Aox1, very confused. Attempting to climb OOB and repeatedly removing O2. Pt requiring frequent redirection. Bed alarm remains in place. Afib on tele monitor. Sating mid 90's on 2L NC. Pt's son at bedside, updated on plan of
care. Safe environment maintained.
--- NOTE | 2024-11-29 14:47 | CS.PSYCHR ---
Consult Summary - Psychiatry
-
Pt is an 84 yo female admitted 11/25 with acute respiratory failure due to heart failure. Pt noted to be calm throughout her stay until an episode of agitation/confusion last night. Pt was given Haldol 0.5 mg IV- stopped due concern for potential
effect on QTc- 502 on 11/28. Pt was restarted on home med Remeron 7.5 mg HS last night. Prn Ativan 0.25 mg IV ordered, has not been needed.
Pt seen sitting upright in bed, alert, calm, pleasant, eating lunch. Pt aware her son is visiting (stepped out for now). Reviewed with nursing staff; no agitation or significant confusion today, although not fully oriented.
Imp: Dementia, vascular. Episode of delirium with agitation, etiology unclear/mixed
Rec: continue current mgt. Will follow
--- NOTE | 2024-11-29 15:27 | CM ---
CM following re: discharge planning.
Per MD, pt's discharge has been cancelled for today due to increased pt's behavior.
Ambulance transportation has been cancelled.
CM spoke to [facility] nursing refining supervisor and she is aware of cancellation of pt's discharge.
D/C plan: [facility] SNF when pt medically and behaviorally stable.
--- NOTE | 2024-11-29 17:04 | PTCARENOTE ---
Pt for tele transfer. Report to receiving RN. Belongings collected from room. Transported to 2126 via stretcher with son at bedside.
--- NOTE | 2024-11-29 17:41 | PTCARENOTE ---
Patient transfer from IMU. Vs documented. son(neeta) at bedside, no s/s of distress noted. bed alarm in place. 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 call hernandez within reach.
[2024-11-29 17:47] LABS: Glucose - Point of Care 106 mg/dl (70-99)
[2024-11-29 21:36] LABS: Glucose - Point of Care 129 mg/dl (70-99)
[2024-11-30 03:40] VITALS: BP 114/62
[2024-11-30] MEDS: SYNTHROID 88 MCG PO (06:11)
[2024-11-30 07:17] VITALS: BP 113/62
[2024-11-30 07:21] LABS: Glucose - Point of Care 56 mg/dl (70-99)
--- NOTE | 2024-11-30 07:52 | W.PN.HOSP.TC ---
Today's Communication/Plan
-
Wean O2 supplementation as tolerated
check nocturnal oxygenation study
Possible SNF rehab tomorrow if able to wean off oxygen supplementation and remains stable medically and behavioral
Assessment / Plan
Assessment / Plan
Physical Exam
General: No pallor, cyanosis, or jaundice.
HEENT: Throat clear. PERRLA Normocephalic atraumatic
NECK: Supple. No JVD Carotid Bruits
RESPIRATORY: Lungs clear to auscultation. No crackles wheezes stridor. Stable respiratory status on 2L
CVS: S1, S2 normal. RRR. No murmur, rub or gallop.
ABDOMEN: Soft, non-tender. No distension. BS+/normal.
EXTREMITIES: No peripheral cyanosis. +1 pitting edema b/l lower ext's. RLE cellulitis noted
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
Psych: Calm
IMPRESSION:
84F [facility] hx afib off anticoagulation d/t freq falls, CVA, hypothyroid, Dementia oriented only to self at baseline p/w AMS reportedly found in her bedroom, AMS/unresponsive, hypoglycemic. ED eval also concerning for hypoxia
despite nonrebreather eventually improved on BIPAP. Patient's mental status eventually improved able to communicate and follow simple commands. No memory of how or why she is in hospital. CT head noted no acute abn's. CXR noted mild interstitial
pulm edema severe cardiomegaly. neg lactic acidosis or leukocytosis. Prior to events patient was on abx for right lower ext cellulitis. BNP from day prior presentation noted elevated 4940, repeat pending. Received empiric Vanc Zosyn and 1L bolus
in ED d/t concern infectious encephalopathy. Ольга Laurent and Joe PIERRE confirm patient's DNR/DNI status. Patient confused, unable to make decisions for herself at this time. Labs also note mild ZIA. Suspect Respiratory Failure 2/2 HF once IV
lasix 40 mg ordered. Admitted to IMU
PLAN:
#Agitation confusion overnight 11/28-11/29 required IV haldol as per night staff
#QT prolongation
prn IV Haldol switched to prn ativan
Psych eval appreciated
Discharge held
Mirtazapine place on hold (agitation/confusion started after medication was resumed, unclear if related)
Mental status since improved, no further prn doses for agitation needed
#Acute Hypoxia
wean O2 supplementation as tolerated
check nocturnal oxygenation study.
#Metabolic encephalopathy unclear etiology possibly multifactorial
#Hx Vascular Dementia Oriented to Person and location at baseline
#Possible infectious etiology encephalopathy vs symptomatic hypoglycemia vs Hypoxia d/t Heart Failure
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
IMU admit downgraded to Tele
speech eval appreciated cleared for regular diet thin liquids
IV lasix 40 mg daily to convert back to home oral torsemide 30 mg daily Sat 11/29 as per Cardio
daily weights I/O
ECHO appreciated EF 50% severe tricuspid regurgitation, in comparison to prior study 11/2021 RV enlarged with reduced function, IVC dilated with elevated RAP, trivial pericardial effusion, no other significant changed
Cardio eval appreciated
Pulm eval appreciated
Weaned off BIPAP
wean O2 supplementation as tolerated
#ZIA likely cardiorenal
resolved with diuresis
initial Cr 1.2 since improved to Cr 0.8
#RLE cellulitis
received empiric vanc zosyn in ED initially d/t concerns sepsis (ruled out)
ID eval appreciated abx de-escalated to Cefazolin renally dosed, at time of dc transition to cephalexin 500 mg Q8H thru 12/03
venous duplex appreciated no DVT
wound care consult appreciated, cont local wound care
#hx Atrial fibrillation off anticoagulation d/t falls
-rate controlled at this time
-cont home Metoprolol with holding parameters
-IV Lopressor prn HR persistent >120
#Hypothyroidism
-Cont home Synthroid as able
#Hyperlipidemia
-ASCVD history with vascular dementia
-statin resumed
PT/OT appreciated SNF rehab
DVT prophylaxis: Heparin
CODE STATUS: DNR/DNR
Discussed with patient and patient's son Joe (flew in From [place])
I spent a total of 45 minutes with the patient or on the floor. More than 50% of this time involved counseling and coordination of care.
Anticipated Discharge: Within 24 hours
Subjective/Interval History
-
Date of Service: November 30, 2024
sleeping comfortably. Remains on Nasal cannula 2L. No acute events overnight noted, no prn for agitation required.
Objective Data
-
Labs:
Laboratory Results
11/30/24
06:58
WBC Pending
Hgb Pending
Hct Pending
Plt Count Pending
Sodium Pending
Potassium Pending
Chloride Pending
Carbon Dioxide Pending
BUN Pending
Creatinine Pending
Glucose Pending
Calcium Pending
Vital Signs:
Vital Signs
Temp Pulse Resp BP Pulse Ox
97.3 F 80 16 113/62 96
11/30/24 07:17 11/30/24 07:17 11/30/24 07:17 11/30/24 07:17 11/30/24 07:17
I&O
11/29/24 11/30/24 12/01/24
06:59 06:59 06:59
Intake Total 600 / 600 480 / 480
Output Total 600 / 600
Balance 600 / 600 -120 / -120
[2024-11-30 07:59] LABS: Glucose - Point of Care 107 mg/dl (70-99)
[2024-11-30] MEDS: SYMBICORT 80/4.5 MCG INHALER 2 PUFF INH ×2 (08:02→20:10)
[2024-11-30] MEDS: SANTYL OINTMENT 1 APPLIC TOPICAL (08:11)
[2024-11-30] MEDS: HEPARIN 5000 UNITS SC ×2 (08:11→17:02)
[2024-11-30] MEDS: ANCEF 5 IV ×2 (08:11→20:04)
[2024-11-30] MEDS: LOPRESSOR 12.5 MG PO ×2 (08:12→20:22)
[2024-11-30] MEDS: DEMADEX 30 MG PO (08:13)
[2024-11-30] MEDS: ProAmatine 2.5 MG PO ×2 (08:13→17:03)
[2024-11-30 08:14] LABS: Blood Urea Nitrogen 22 mg/dl (7-17); Calcium 9.1 mg/dl (8.4-10.2); Carbon Dioxide 30 mmol/L (22-30); Chloride 102 mmol/L (98-107); Estimated Creatinine Clearance 42 ml/min; Glucose 59 mg/dl (70-99); Phosphorus 2.7 mg/dl (2.5-4.5); Sodium 138 mmol/L (135-145); eGFR > 60.00
[2024-11-30] MEDS: LIPITOR 20 MG PO (08:14)
[2024-11-30] MEDS: HYDROPHOR 1 APPLIC TOPICAL (08:14)
[2024-11-30 11:00] VITALS: BMI 24.7
[2024-11-30 11:12] VITALS: BP 93/59
--- NOTE | 2024-11-30 12:00 | W.PN.ID1 ---
Date of Service
Date of Service: November 30, 2024
Today's Communication
Continue antibiotics. See below�
Assessment / Plan
# Acute RLE cellulitis: improving
- US periph vasc - no DVT
- Continue cefazolin 1g IV q8 (d#5)
- At time of d/c, can transition to cephalexin 500mg po q8H, to continue through 12/03.
# Acute hypoxemic respiratory failure, now off O2.
- CXR interstitial edema
- Improving with diuresis
# Change in mental status due to hypoglycemia
- mental status change resolved with glucose correction.
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
Vascular dementia
CVA
Afib
CHF
CKD3
Hypothyroidism
HLD
AV fistula of left renal artery
Lower extremity venous stasis
Chief Complaint
-: Cellulitis (Right lower extremity)
Subjective / Review of Systems
Review of Systems: No Fever and No Chills
Vital Signs / Physical Exam
Vital Signs
Vital Signs
Temp Pulse Resp BP Pulse Ox
97.3 F 72 16 113/62 95
11/30/24 07:17 11/30/24 08:07 11/30/24 08:07 11/30/24 07:17 11/30/24 11:00
Physical Exam
Constitutional: No Acute Distress and Chronically Ill
Cardiovascular: Irregular Rate
Pulmonary: Clear (anteriorly)
Gastrointestinal: Soft, Non Tender and Non Distended
Extremities: Edema (RLE>LLE) and Erythema (RLE erythema; mild. No significant warmth)
Wound: Other (BLE venous stasis wounds dressed.)
Neurological: Awake and Alert
Psychological: Calm
Objective Data
Lab Data
Lab Results
11/30/24 06:58
Estimated Creat Clear 42 ml/min 11/30/24 06:58
Lactic Acid Cancelled 11/26/24 14:00
Total Bilirubin 1.0 mg/dl (0.2-1.3) 11/26/24 10:19
AST 36 U/L (14-36) 11/26/24 10:19
ALT 20 U/L (0-35) 11/26/24 10:19
Alkaline Phosphatase 179 U/L (38-126) H 11/26/24 10:19
Most recent labs reviewed.
Micro Results:
11/26/24 10:30 Blood Culture - Preliminary
Blood/Venous No Growth in 4 days- Final report to follow
11/26/24 10:19 Blood Culture - Preliminary
Blood/Venous No Growth in 4 days- Final report to follow
11/26/24 19:11 MRSA Screen - Final
Nose No Methicillin Resistant Staphylococcus aureus isolated.
11/26/24 10:19 Influenza Types A & B ([facility]) - Final
Nasal Swab Negative for Influenza A & B, NAAT
Negative results must be combined with clinical observations
and patient history.
Nucleic Acid Amplification test (NAAT)performed on the
Re[employer] platform.
11/26/24 CXR: Mild interstitial pulmonary edema. Severe cardiomegaly.
[2024-11-30 12:09] LABS: Glucose - Point of Care 111 mg/dl (70-99)
[2024-11-30 12:34] LABS: Hematocrit 38.3 % (37.0-47.0); Hemoglobin 12.2 g/dL (12.0-16.0); Mean Corp Hgb Conc. 31.9 g/dL (33.0-37.0); Mean Corpuscular Hgb 30.1 pg (27.0-31.0); Mean Corpuscular Volume 94.6 fL (81.0-99.0); Mean Platelet Volume 10.4 fL (7.4-10.4); Platelet Count 201 10^3/uL (130-400); Red Blood Cell Count 4.05 10^6/uL (4.20-5.40); Red Cell Dist. Width 16.4 % (11.5-14.5); White Blood Cell Count 7.5 10^3/uL (4.8-10.8)
[2024-11-30 16:32] VITALS: BP 115/53
[2024-11-30 19:43] VITALS: BP 102/61
[2024-11-30 23:34] VITALS: BP 100/52
[2024-12-01] MEDS: HEPARIN 5000 UNITS SC ×3 (01:19→15:42)
[2024-12-01 03:22] VITALS: BP 104/61
[2024-12-01 05:04] VITALS: BMI 24.7
[2024-12-01] MEDS: SYNTHROID 88 MCG PO (06:58)
[2024-12-01 07:05] VITALS: BP 119/64
[2024-12-01] MEDS: SYMBICORT 80/4.5 MCG INHALER 2 PUFF INH (07:20)
[2024-12-01 07:32] LABS: Hematocrit 38.7 % (37.0-47.0); Hemoglobin 12.1 g/dL (12.0-16.0); Mean Corp Hgb Conc. 31.3 g/dL (33.0-37.0); Mean Corpuscular Hgb 29.7 pg (27.0-31.0); Mean Corpuscular Volume 95.1 fL (81.0-99.0); Mean Platelet Volume 10.5 fL (7.4-10.4); Platelet Count 204 10^3/uL (130-400); Red Blood Cell Count 4.07 10^6/uL (4.20-5.40); Red Cell Dist. Width 16.4 % (11.5-14.5); White Blood Cell Count 6.8 10^3/uL (4.8-10.8)
[2024-12-01] MEDS: LOPRESSOR 12.5 MG PO (08:21)
[2024-12-01] MEDS: SANTYL OINTMENT 1 APPLIC TOPICAL (08:21)
[2024-12-01] MEDS: LIPITOR 20 MG PO (08:21)
[2024-12-01] MEDS: ProAmatine 2.5 MG PO (08:22)
[2024-12-01] MEDS: ANCEF 5 IV (08:22)
[2024-12-01] MEDS: DEMADEX 30 MG PO (08:23)
[2024-12-01] MEDS: HYDROPHOR 1 APPLIC TOPICAL (08:24)
[2024-12-01 09:21] LABS: Blood Urea Nitrogen 21 mg/dl (7-17); Carbon Dioxide 34 mmol/L (22-30); Chloride 100 mmol/L (98-107); Estimated Creatinine Clearance 42 ml/min; Glucose 80 mg/dl (70-99); Phosphorus 2.9 mg/dl (2.5-4.5); Potassium 4.6 mmol/L (3.5-5.1); Sodium 138 mmol/L (135-145); eGFR > 60.00
--- NOTE | 2024-12-01 10:02 | W.PN.ID1 ---
Date of Service
Date of Service: December 01, 2024
Today's Communication
Transition cefazolin (d#5) to cephalexin 500mg po q8H through 12/03.
ID will sign off. Call prn.
Assessment / Plan
# Acute RLE cellulitis: resolving
- US periph vasc - no DVT
- Transition cefazolin (d#5) to cephalexin 500mg po q8H through 12/03.
# Acute hypoxemic respiratory failure, now off O2.
- CXR interstitial edema
- Improving with diuresis
# Change in mental status due to hypoglycemia
- mental status change resolved with glucose correction.
ID will sign off.
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
Vascular dementia
CVA
Afib
CHF
CKD3
Hypothyroidism
HLD
AV fistula of left renal artery
Lower extremity venous stasis
Chief Complaint
-: Cellulitis (Right lower extremity)
Vital Signs / Physical Exam
Vital Signs
Vital Signs
Temp Pulse Resp BP Pulse Ox
98.1 F 100 14 119/64 95
12/01/24 07:05 12/01/24 08:21 12/01/24 07:23 12/01/24 08:21 12/01/24 07:23
Physical Exam
Constitutional: Comfortable and Chronically Ill
Cardiovascular: Irregular Rate and S1/S2
Extremities: Edema (R>LLE edema decreasing) and Erythema (RLE minimal erythema)
Objective Data
Lab Data
Lab Results
12/01/24 07:11
12/01/24 08:42
Estimated Creat Clear 42 ml/min 12/01/24 08:42
Lactic Acid Cancelled 11/26/24 14:00
Total Bilirubin 1.0 mg/dl (0.2-1.3) 11/26/24 10:19
AST 36 U/L (14-36) 11/26/24 10:19
ALT 20 U/L (0-35) 11/26/24 10:19
Alkaline Phosphatase 179 U/L (38-126) H 11/26/24 10:19
Most recent labs reviewed.
Micro Results:
11/26/24 10:30 Blood Culture - Preliminary
Blood/Venous No Growth in 4 days- Final report to follow
11/26/24 10:19 Blood Culture - Preliminary
Blood/Venous No Growth in 4 days- Final report to follow
11/26/24 19:11 MRSA Screen - Final
Nose No Methicillin Resistant Staphylococcus aureus isolated.
11/26/24 10:19 Influenza Types A & B ([facility]) - Final
Nasal Swab Negative for Influenza A & B, NAAT
Negative results must be combined with clinical observations
and patient history.
Nucleic Acid Amplification test (NAAT)performed on the
[employer] platform.
11/26/24 CXR: Mild interstitial pulmonary edema. Severe cardiomegaly.
[2024-12-01 11:00] VITALS: BP 105/59
--- NOTE | 2024-12-01 12:08 | W.PN.HOSP.TC ---
Addendum entered and electronically signed by Lianet Merchant MD 12/01/24 15:12:
total DC time 40 min
Original Note:
Today's Communication/Plan
-
see A/P
Assessment / Plan
Assessment / Plan
Physical Exam
General: No pallor, cyanosis, or jaundice.
HEENT: Throat clear. PERRLA Normocephalic atraumatic
NECK: Supple. No JVD Carotid Bruits
RESPIRATORY: Lungs clear to auscultation. No crackles wheezes stridor. Stable respiratory status on 2L
CVS: S1, S2 normal. RRR. No murmur, rub or gallop.
ABDOMEN: Soft, non-tender. No distension. BS+/normal.
EXTREMITIES: No peripheral cyanosis. +1 pitting edema b/l lower ext's. RLE cellulitis noted
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
Psych: Calm
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 PMH afib off anticoagulation d/t freq falls, CVA, hypothyroid, Dementia oriented only to self at baseline; p/w AMS reportedly found in her bedroom, AMS/unresponsive, hypoglycemic.
ED eval also concerning for hypoxia despite nonrebreather, eventually improved on BIPAP. Patient's mental status eventually improved, able to communicate and follow simple commands. No memory of how or why she is in hospital.
CT head noted no acute abn's. CXR noted mild interstitial pulm edema severe cardiomegaly. neg lactic acidosis or leukocytosis. Prior to events patient was on abx for right lower ext cellulitis. BNP from day prior presentation noted elevated 4940.
Received empiric Vanc Zosyn and 1L bolus in ED d/t concern infectious encephalopathy. Ольга Laurent and Joe PIERRE confirm patient's DNR/DNI status. Patient confused, unable to make decisions for herself at this time. Labs also note mild ZIA.
Suspect Respiratory Failure 2/2 HF once IV lasix 40 mg ordered. Admitted to IMU
PLAN:
# Agitation/ confusion overnight 11/28-11/29 required IV haldol as per night staff
# QT prolongation
prn IV Haldol switched to prn ativan
Psych eval appreciated
Mirtazapine on hold (agitation/confusion started after medication was resumed, unclear if related)
Mental status since improved, no further prn doses for agitation needed
# Acute Hypoxic resp failure, resolved
weaned O2 to RA
# Metabolic encephalopathy unclear etiology possibly multifactorial
# Hx Vascular Dementia Oriented to Person and location at baseline
# Possible infectious etiology encephalopathy vs symptomatic hypoglycemia vs Hypoxia d/t Heart Failure
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
IMU admit downgraded to Tele
speech eval appreciated cleared for regular diet thin liquids
IV lasix 40 mg daily converted back to home oral torsemide 30 mg daily Sat 11/29 as per Cardio
daily weights I/O
ECHO appreciated EF 50% severe tricuspid regurgitation, in comparison to prior study 11/2021 RV enlarged with reduced function, IVC dilated with elevated RAP, trivial pericardial effusion, no other significant changed
Cardio eval appreciated
Pulm eval appreciated
Weaned off BIPAP
weaned off O2 supplementation
# ZIA likely cardiorenal
resolved with diuresis
initial Cr 1.2 since improved to Cr 0.8
# RLE cellulitis
received empiric vanc zosyn in ED initially d/t concerns sepsis (ruled out)
ID eval appreciated abx de-escalated to Cefazolin renally dosed, at time of dc transition to cephalexin 500 mg Q8H thru 12/03
venous duplex appreciated no DVT
wound care consult appreciated, cont local wound care
# hx Atrial fibrillation off anticoagulation d/t falls
rate controlled at this time
cont home Metoprolol with holding parameters
IV Lopressor prn HR persistent >120
# Hypothyroidism
Cont home Synthroid as able
# Hyperlipidemia
ASCVD history with vascular dementia
statin resumed
PT/OT appreciated SNF rehab
DVT prophylaxis: Heparin
CODE STATUS: DNR/DNR
Discussed with patient and patient's son at bedside
Anticipated Discharge: Today
Subjective/Interval History
-
Date of Service: December 01, 2024
Objective Data
-
Labs:
Laboratory Results
12/01/24 12/01/24
07:11 08:42
WBC 6.8
Hgb 12.1
Hct 38.7
Plt Count 204
Sodium Cancelled 138
Potassium Cancelled 4.6
Chloride Cancelled 100
Carbon Dioxide Cancelled 34 H
BUN Cancelled 21 H
Creatinine Cancelled 0.8
Glucose Cancelled 80
Calcium Cancelled 9.0
Vital Signs:
Vital Signs
Temp Pulse Resp BP Pulse Ox
36.6 C 88 18 105/59 95
12/01/24 11:00 12/01/24 11:00 12/01/24 11:00 12/01/24 11:00 12/01/24 11:07
I&O
11/30/24 12/01/24 12/02/24
06:59 06:59 06:59
Intake Total 480 / 480 840 / 840
Output Total 600 / 600 750 / 750
Balance -120 / -120 90 / 90
Review of Systems
-
Unable to obtain full review of systems at this time due to: Dementia
History Source: Patient
All other systems: Reviewed and negative
Data Reviewed
-
Labs: Labs Reviewed by me
--- NOTE | 2024-12-01 12:55 | CM ---
Pt for discharge today to [facility]
Spoke with Marge at DC - can accept today
Spoke with pts son at bedside - updated
Reveiwed IMM
Transport forms on chart
Plan - transfer to [facility]
R - [phone]
F - [phone]
[2024-12-01 14:00] VITALS: BMI 24.3
--- NOTE | 2024-12-01 14:07 | W.DCSUMMARY ---
Discharge Summary
Discharge Data
Date of Admission: 11/26/24
Date of Discharge: 12/01/24
-
Pending Results: No
Hospital Course
Principal Diagnosis:
Altered mental status/confusion/metabolic encephalopathy likely due to multifactorial etiologies, such as infection/right leg cellulitis, hypoxia due to CHF and hypoglycemia.
Acute on chronic HFmrEF (h/o HFrEF with recovered EF)
Resolved acute kidney injury/cardiorenal syndrome
Right lower extremity cellulitis
Chronic Diagnoses:�
Vascular dementia, only orientated to self at baseline
Atrial fibrillation off anticoagulation d/t falls
Hypothyroidism, continue Synthroid
Hyperlipidemia
Consultations:�
Infectious disease
Cardiology
Procedures:�
None
Clinical course:�
This is a 84-year-old female from [facility] with past medical history as stated above, who presented with altered mental status.
Problem 1:
Altered mental status/confusion/metabolic encephalopathy likely due to multifactorial etiologies, such as infection/mild leg cellulitis, hypoxia due to CHF and hypoglycemia.
Her confusion resolved, and her mental status returned to baseline which is awake and orientated to self only.
Problem 2:
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
Oxygen support was weaned off back to room air prior to discharge.
She was treated with IV Lasix 40 mg daily while in the hospital, and this was converted back to her home oral torsemide 30 mg daily, which she can continue going forward.
Her ECHO showed EF 50% severe tricuspid regurgitation, in comparison to prior study 11/2021 RV enlarged with reduced function, IVC dilated with elevated RAP, trivial pericardial effusion, no other significant changed
She was cleared by speech to continue solid diet and thin liquid.
Problem 3:
ZIA likely cardiorenal syndrome.
Her ZIA resolved with diuresis, creatinine improved from 1.2 admission to 0.8.
Problem 4:
RLE cellulitis.
She received empiric vanc zosyn in ED and antibiotics were de-escalated to Ancef per ID.
She can continue oral Keflex 500 mg Q8H thru 12/03 per ID.
Of note, her venous duplex showed no DVT.
As for the rest of her medical problems, they were stable during her hospital stay.
Discharge Plan
-
Patient Disposition: Fdc/SNF
Discharge Diagnosis/Procedures: Confusion/Metabolic encephalopathy unclear etiology possibly multifactorial (Possible infectious etiology vs symptomatic hypoglycemia vs Hypoxia due to heart failure);
History of Vascular Dementia Oriented to Person and location at baseline;
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
Condition: Fair
Diet: As tolerated
Activity: As tolerated
Wound Care: Wound Care Instructions
Le wounds-clean with saline or Vashe wound cleanser, Aquaphor ointment to dry intact skin le's, Santyl ointment to necrotic tissue, adaptic, ABD pad, secure with Dusty or Kerlix, change daily and prn drainage.
Barrier ointment to jama/buttocks bid.
Bilateral knee high Tubigrip or Isael with light compression as tolerated; remove q hs; re-apply q am.
Air mattress
Turning schedule
Elevate heels off bed; soft heel relief boots (i.e. Foot Waffle boots); air chair cushion under heels/boots.
Air chair cushion.
Follow up with wound laboratory animal caretaker or at wound care center call for an appointment.
Instructions: *DCA Heart Failure Instructions
Referrals:
Pari Cuenca PA-C [Specified Professional Personl] - 12/26/24 2:00 pm (You have a cardiology follow-up appointment at the Center office with Dr. Larsen's physician vet assistant, Pari. Please call with questions)
Maci Huerta CRNP [Family Provider] - in less than 1 week
Additional Discharge Medication Instructions: Continue cephalexin 500 mg Q8H thru 12/03
Prescriptions:
New
cephalexin 500 mg Capsule
500 mg PO Q8H 2 Days Qty: 6 0RF
Continued
levothyroxine 88 MCG tablet
88 mcg PO DAILY
torsemide 20 MG tablet
30 mg PO DAILY
magnesium hydroxide [Milk of Magnesia] 400 mg/5 mL Suspension
400 mg PO [id number] PRN (Reason: constipation,3 days no bm)
bisacodyl [Dulcolax (bisacodyl)] 10 mg Suppository
10 mg UT DAILYPRN PRN (Reason: if no bm on 5th day or aftr mom)
Fleet Enema 19-7 gram/118 mL Enema
118 ml UT DAILYPRN PRN (Reason: no bm 6 days, dulcolax ineffect)
atorvastatin 20 mg Tablet
20 mg PO DAILY
metoprolol tartrate 50 mg Tablet
12.5 mg PO BID
loperamide 2 mg Tablet
2 mg PO Q6HPRN PRN (Reason: diarrhea)
capsaicin 0.075 % Cream
1 applic TOPICAL TID
acetaminophen 500 mg Tablet
500 mg PO TID
midodrine 2.5 mg Tablet
2.5 mg PO BID
albuterol sulfate 90 mcg/actuation Hfa Aerosol Inhaler
2 puff INHALATION R Q4HPRN PRN (Reason: sob)
ondansetron 4 mg Tablet,Disintegrating
4 mg PO Q8HPRN PRN (Reason: nausea)
fluticasone furoate-vilanterol [Breo Ellipta] 100-25 mcg/dose Blister With Device
1 inh INHALATION R DAILY
zinc oxide 22 % Cream
1 applic TOPICAL DAILY
Discontinued
calcium carbonate 600 MG tablet
600 mg PO DAILY
mirtazapine 7.5 mg Tablet
7.5 mg PO HS
Discharge Orders:
Discharge Patient (As Directed); Ordered 12/01/24
Ordered By: Lianet Merchant
Discharge Date and Time
Print Language: LITHUANIAN
[2024-12-01 15:00] VITALS: BP 100/57
[2024-12-01] MEDS: KEFLEX 500 MG PO (15:42)
== END 2024-12-01 16:39 | DRG 291 ==
LOC: 2 NORTH 14:46
PROVIDERS: Physician Assistant Medical; ADMITTING PHYSICIAN Internal Medicine; ATTENDING PHYSICIAN Internal Medicine; CONSULT PHYSICIAN Internal Medicine Cardiovascular Disease; CONSULT PHYSICIAN Psychiatry & Neurology Psychiatry; EMERGENCY PHYSICIAN Student in an Organized Health Care Education/Training Program; FAMILY PHYSICIAN Nurse Practitioner Gerontology; OTHER PHYSICIAN Internal Medicine Critical Care Medicine; OTHER PHYSICIAN Internal Medicine Infectious Disease
PROC: 5A09357 Assistance with Respiratory Ventilation, Less than 24 Consecutive Hours, Continuous Positive Airway Pressure (ICD-10-PCS; 2024-11-26)
DX: I13.0 Hypertensive heart and chronic kidney disease with heart failure and stage 1 through stage 4 chronic kidney disease, or unspecified chronic kidney disease (principal); G93.41 Metabolic encephalopathy; J96.01 Acute respiratory failure with hypoxia; I50.33 Acute on chronic diastolic (congestive) heart failure; I48.21 Permanent atrial fibrillation; L03.115 Cellulitis of right lower limb; N17.9 Acute kidney failure, unspecified; F01.511 Vascular dementia, unspecified severity, with agitation; Z66 Do not resuscitate; E11.22 Type 2 diabetes mellitus with diabetic chronic kidney disease; E03.9 Hypothyroidism, unspecified; I25.10 Atherosclerotic heart disease of native coronary artery without angina pectoris; N18.30 Chronic kidney disease, stage 3 unspecified; E78.00 Pure hypercholesterolemia, unspecified; E11.649 Type 2 diabetes mellitus with hypoglycemia without coma; K21.9 Gastro-esophageal reflux disease without esophagitis; I87.8 Other specified disorders of veins; I44.7 Left bundle-branch block, unspecified; R68.0 Hypothermia, not associated with low environmental temperature; Z86.73 Personal history of transient ischemic attack (TIA), and cerebral infarction without residual deficits; Z99.3 Dependence on wheelchair; Z96.653 Presence of artificial knee joint, bilateral; Z91.81 History of falling; Z79.899 Other long term (current) drug therapy; Z79.890 Hormone replacement therapy; Z79.51 Long term (current) use of inhaled steroids; Z11.52 Encounter for screening for COVID-19
CPT/HCPCS: 36415; 36600; 51701; 70450; 71045; 80048; 80053; 81003; 81015; 82550; 82805; 82962; 83605; 83735; 83880; 84100; 84443; 85025; 85027; 87040; 87070; 87502; 87811; 92526; 92610; 93005; 93306; 93971; 94640; 94660; 94762; 96365; 96367; 96375; 97163; 97167; 97530; 99291

== ENCOUNTER → 2024-12-04 11:53 | Outpatient (REF) | payer MEDICARE, OTHER, SELFPAY ==
[2024-12-04 12:38] LABS: ALT (SGPT) 12 U/L (0-35); AST (SGOT) 32 U/L (14-36); Alkaline Phosphatase 142 U/L (38-126); Blood Urea Nitrogen 21 mg/dl (7-17); Carbon Dioxide 33 mmol/L (22-30); Chloride 100 mmol/L (98-107); Glucose 70 mg/dl (70-99); Sodium 137 mmol/L (135-145); Total Bilirubin 0.9 mg/dl (0.2-1.3); Total Protein 5.7 g/dl (6.3-8.2); eGFR > 60.00
[2024-12-04 12:43] LABS: % Basophils 1.9 % (0-2); % Immature Granulocytes 0.5 % (0-0.5); % Lymphocytes 16.9 % (20.5-51.1); % Monocytes 12.3 % (1.7-9.3); % Neutrophils 63.4 % (42.2-75.2); Absolute Basophils 0.1 10^3/uL (0-0.2); Absolute Eosinophils 0.3 10^3/uL (0-0.7); Absolute Monocytes 0.7 10^3/uL (0.1-0.6); Absolute Neutrophils 3.6 10^3/uL (1.4-6.5); Hematocrit 35.9 % (37.0-47.0); Hemoglobin 11.3 g/dL (12.0-16.0); Mean Corp Hgb Conc. 31.5 g/dL (33.0-37.0); Mean Corpuscular Hgb 30.1 pg (27.0-31.0); Mean Corpuscular Volume 95.5 fL (81.0-99.0); Mean Platelet Volume 10.3 fL (7.4-10.4); Nucleated Red Blood Cells % 0 %; Platelet Count 186 10^3/uL (130-400); Red Blood Cell Count 3.76 10^6/uL (4.20-5.40); Red Cell Dist. Width 16.2 % (11.5-14.5); White Blood Cell Count 5.8 10^3/uL (4.8-10.8)
== END ==
LOC: OLABP 11:53
PROVIDERS: ATTENDING PHYSICIAN Family Medicine
DX: I10 Essential (primary) hypertension (principal); E78.5 Hyperlipidemia, unspecified; I27.20 Pulmonary hypertension, unspecified; J81.0 Acute pulmonary edema; Z86.73 Personal history of transient ischemic attack (TIA), and cerebral infarction without residual deficits; F01.50 Vascular dementia, unspecified severity, without behavioral disturbance, psychotic disturbance, mood disturbance, and anxiety; I50.30 Unspecified diastolic (congestive) heart failure; E03.9 Hypothyroidism, unspecified; G92.8 Other toxic encephalopathy; L03.115 Cellulitis of right lower limb; F03.911 Unspecified dementia, unspecified severity, with agitation; J96.01 Acute respiratory failure with hypoxia
CPT/HCPCS: 36415; 80053; 85025

== ENCOUNTER 2024-12-13 13:43 | Observation (INO) | payer MEDICARE, OTHER, SELFPAY ==
[2024-12-13] VITALS (7 sets, daily range): BP systolic 86–120; BP diastolic 52–93; BMI 27.5
[2024-12-13 08:49] LABS: % Eosinophils 0.1 % (0-6); % Immature Granulocytes 0.3 % (0-0.5); % Lymphocytes 6.5 % (20.5-51.1); % Monocytes 9.8 % (1.7-9.3); % Neutrophils 82.3 % (42.2-75.2); Absolute Basophils 0.1 10^3/uL (0-0.2); Absolute Lymphocytes 0.5 10^3/uL (1.2-3.4); Absolute Monocytes 0.7 10^3/uL (0.1-0.6); Absolute Neutrophils 5.8 10^3/uL (1.4-6.5); Hematocrit 39.5 % (37.0-47.0); Hemoglobin 12.5 g/dL (12.0-16.0); Mean Corp Hgb Conc. 31.6 g/dL (33.0-37.0); Mean Corpuscular Hgb 30.2 pg (27.0-31.0); Mean Corpuscular Volume 95.4 fL (81.0-99.0); Mean Platelet Volume 10.8 fL (7.4-10.4); Nucleated Red Blood Cells % 0 %; Platelet Count 179 10^3/uL (130-400); Red Blood Cell Count 4.14 10^6/uL (4.20-5.40); Red Cell Dist. Width 16.6 % (11.5-14.5)
--- NOTE | 2024-12-13 09:15 | ED.GENMED ---
History of Present Illness
General
Chief Complaint: Change Level of Consciousness
Source: patient
Exam Limitations: none
History of Present Illness
History of Present Illness:
See MDM
Past History
Past History
ED Past Medical History: Arrthythmia, CHF, CVA, GERD, Hypothyroidism and Other
ED Past Surgical History: Gynecological (Hysterectomy)
Social History
Tobacco: Non-smoker
Alcohol: Occasional
Drug: None
Personal:
Living: alone
Employment: Retired
Phy Exam
Physical Exam
Physical Exam:
See MDM
Course
Orders/Labs/Results
Orders:
Orders
12/13/24 08:27
EKG [Electrocardiogram (*1)] Urgent
Reason for Study: Shortness of Breath
EKG- Treatment ONCE
12/13/24 08:39
Complete Blood Count/With Diff Urgent
Comprehensive Metabolic Panel Urgent
12/13/24 09:05
CT Head W/o Iv Contrast Urgent
Comment:
Reason For Exam: altered
Straight cath- Treatment ONCE
12/13/24 09:06
CR Chest Portable - 1 View Urgent
Comment:
Reason For Exam: altered
Reason Study Needs to be Portable: Patient Unstable
12/13/24 09:17
UA Reflex to Culture [Urinalysis Reflex To Culture] Urgent
Date Specimen was Collected: 12/13/24
Time Specimen was Collected: 09:16
Urine Microscopic Reflex Cult Urgent
12/13/24 11:14
CT Abd/pelvis W Iv Cont Urgent
Comment:
Reason For Exam: altered, mild general abd pain
Abnormal Lab Results
12/13/24 12/13/24
08:39 09:17
RBC 4.14 L 10^6/uL
(4.20-5.40)
MCHC 31.6 L g/dL
(33.0-37.0)
RDW 16.6 H %
(11.5-14.5)
MPV 10.8 H fL
(7.4-10.4)
Absolute Lymphs (auto) 0.5 L 10^3/uL
(1.2-3.4)
Absolute Monos (auto) 0.7 H 10^3/uL
(0.1-0.6)
Neutrophils % 82.3 H %
(42.2-75.2)
Lymphocytes % 6.5 L %
(20.5-51.1)
Monocytes % 9.8 H %
(1.7-9.3)
BUN 37 H mg/dl
(7-17)
Glucose 108 H mg/dl
(70-99)
Total Bilirubin 1.4 H mg/dl
(0.2-1.3)
AST 47 H U/L
(14-36)
Alkaline Phosphatase 186 H U/L
(38-126)
Urine Albumin (Reflex) 2+ A
(Neg - Trace)
12/13/24 08:39
12/13/24 08:39
Vital Signs
Initial and Last Documented VS:
Initial Vital Signs
Temp Pulse Resp Pulse Ox
97.9 F 111 34 91
12/13/24 08:20 12/13/24 08:20 12/13/24 08:20 12/13/24 08:20
Last Documented Vital Signs
Temp Pulse Resp BP Pulse Ox
98.6 F 97 24 111/64 94
12/13/24 08:38 12/13/24 09:00 12/13/24 09:00 12/13/24 09:00 12/13/24 09:00
MDM/Problems Addressed
Differential Diagnosis Includes:
HPI and MDM Narrative:
84-year-old female presenting for evaluation of altered mental status. Patient comes from nursing facility. Apparently, patient has been harder to arouse. On arrival, she does answer to noxious stimuli but appears to fall back asleep. She is
afebrile. Lungs are clear. Patient found to be in A-fib but prior records indicate she has a history of A-fib. Patient is a poor historian and is indeed altered. Will obtain CT head, chest x-ray, basic blood work to rule out metabolic
encephalopathy and will obtain urinalysis
Physical exam
General: Sleeping in bed. Hard to arouse
HEENT: protecting airway
Neck: supple
CV: No evidence of cyanosis. Irregular rhythm
Resp: No accessory muscle use. Lungs clear
Abd: Non-distended. No tenderness elicited to deep palpation
Extremities: No deformities
Neuro: Altered but responds to noxious stimuli.
Psych: Flat affect
Skin: Intact
Problems Addressed including Acute and Chronic Conditions affecting care:
1. Altered mental status
Acuity: acute
Prognosis: unstable
Details: Will obtain CT head to rule out hemorrhage. Will obtain chest x-ray to rule out infection. Will obtain basic blood work to rule out metabolic encephalopathy and will obtain urinalysis
Updates
Workup is negative. CT head negative. Chest x-ray unchanged. Blood work without clinically significant abnormalities and urinalysis negative. On reassessment, patient still altered but does respond to noxious stimuli. I reexamined her abdomen
and there appears to be some sort of grimace with deep palpation at this point. At this point, will obtain CT abdomen/pelvis
Differential Diagnosis (but not limited to): Stroke, intracranial hemorrhage, pneumonia, UTI, metabolic encephalopathy
Testing considered: Blood cultures but patient is afebrile
Drug therapy (if applicable): OTC meds, please see d/c instruction regarding Rx drugs
Amount and/or Complexity of Data Reviewed
Clinical info obtained from: EMS
External data reviewed: N/A
Labs I independently reviewed (but not limited to): White blood cell count normal, very mild LFT elevation
Radiology: The CT scan was personally and independently reviewed. In addition, official CT report reviewed.
X-ray independently reviewed: Chest x-ray appears unchanged from prior
Pulse Ox: hypoxic
EKG independently reviewed: A-fib, normal axis, no STEMI
Sales Commissions Analyst: A-fib
Critical Care: N/A
Risk of Complication:
Social Determinants of health: Good social support
Discussed with other providers: Hospitalist
Escalation of Care includes Admit/Obs: Given the persistent altered mental status, will admit
Occasional wrong word or 'sound a like' substitutions may have occurred due to the inherent limitations of voice recognition software. Read the chart carefully and recognize, using context, where substitutions have occurred.
ED Attending Note
-
Portions of this chart may have been created with voice recognition software.� Occasional wrong word or��sound alike� substitutions may have occurred due to the inherent limitations of voice recognition software.
Discharge Plan
Departure
Patient Disposition: Admit
Date of Disposition: 12/13/24
Time of Disposition: 11:30
Admit to: Telemetry
Presentation/result/management discussed w/ accepting MD/DO: Hospitalist
Discharge Problem:
Altered mental status
Prescriptions:
No Action
levothyroxine 88 MCG tablet
88 mcg PO DAILY
torsemide 20 MG tablet
30 mg PO DAILY
magnesium hydroxide [Milk of Magnesia] 400 mg/5 mL Suspension
400 mg PO [id number] PRN (Reason: constipation,3 days no bm)
bisacodyl [Dulcolax (bisacodyl)] 10 mg Suppository
10 mg OK DAILYPRN PRN (Reason: if no bm on 5th day or aftr mom)
Fleet Enema 19-7 gram/118 mL Enema
118 ml OK DAILYPRN PRN (Reason: no bm 6 days, dulcolax ineffect)
atorvastatin 20 mg Tablet
20 mg PO DAILY
metoprolol tartrate 50 mg Tablet
12.5 mg PO BID
loperamide 2 mg Tablet
2 mg PO Q6HPRN PRN (Reason: diarrhea)
capsaicin 0.075 % Cream
1 applic TOPICAL TID
acetaminophen 500 mg Tablet
500 mg PO TID
midodrine 2.5 mg Tablet
2.5 mg PO BID
albuterol sulfate 90 mcg/actuation Hfa Aerosol Inhaler
2 puff INHALATION R Q4HPRN PRN (Reason: sob)
ondansetron 4 mg Tablet,Disintegrating
4 mg PO Q8HPRN PRN (Reason: nausea)
fluticasone furoate-vilanterol [Breo Ellipta] 100-25 mcg/dose Blister With Device
1 inh INHALATION R DAILY
zinc oxide 22 % Cream
1 applic TOPICAL DAILY
cephalexin 500 mg Capsule
500 mg PO Q8H 2 Days Qty: 6 0RF
Referrals:
Dayana Aldrich DO [Family Provider] -
Interventions
Interventions:
*Risk Screen - Suicide Last Done: 12/13/24 08:24
*Neglect/Abuse Screening Last Done: 12/13/24 08:24
ED- Pulmonary Assessment Last Done: 12/13/24 09:22
ED-Psychological Assessment Last Done: 12/13/24 09:22
ED- Neurological Assessment Last Done: 12/13/24 08:40
ED- Cardiac Assessment Last Done: 12/13/24 09:22
Discharge Date and Time
Print Language: PALAUAN
[2024-12-13 09:30] LABS: ALT (SGPT) 18 U/L (0-35); AST (SGOT) 47 U/L (14-36); Alkaline Phosphatase 186 U/L (38-126); Blood Urea Nitrogen 37 mg/dl (7-17); Carbon Dioxide 25 mmol/L (22-30); Chloride 105 mmol/L (98-107); Glucose 108 mg/dl (70-99); Potassium 4.7 mmol/L (3.5-5.1); Sodium 141 mmol/L (135-145); Total Bilirubin 1.4 mg/dl (0.2-1.3); Total Protein 6.5 g/dl (6.3-8.2); eGFR 54.87
[2024-12-13 09:31] LABS: Urine Albumin 2+ (Neg - Trace); Urine Bilirubin Negative (Negative); Urine Character Clear (Clear); Urine Color Yellow; Urine Glucose Negative (Negative); Urine Ketone Negative (Negative); Urine Leukocyte Negative (Negative); Urine Nitrite Negative (Negative); Urine Occult Blood Negative (Negative); Urine Specific Gravity 1.015 (<1.030); Urine Urobilinogen Negative (Neg - 1+)
[2024-12-13 09:53] LABS: Albumin 3.8 g/dl (3.5-5.0)
[2024-12-13 11:18] LABS: Urine Amorphous Seen; Urine Urothelial Cell 0-2 /LPF (FEW)
[2024-12-13 11:19] LABS: Urine Red Blood Cell 0-2 /HPF (0-2)
--- NOTE | 2024-12-13 12:08 | HPS.HSE ---
Addendum entered and electronically signed by Jennifer Zaragoza MD 12/13/24 14:42:
I saw and examined the patient.
The ORDER CHECKER PACKER PROCESSER or PA's note was reviewed and I agree with the note.
Comment:
Physical Exam
General: not in respiratory distress
HEENT: Anicteric and Moist mucous membranes
Respiratory: limited but Clear and Non Labored Respirations
Cardiac: S1/S2 No Tachycardia
GI: Soft and Non Tender
Rectal: No bleeding
Musculoskeletal: No Clubbing, No Cyanosis and Other (+1 pitting edema bilateral lower extremities)
Skin: Warm, Dry and Other (Bilateral lower extremities with dressing in place)
Neuro: Other (she opened eyes to name with Stacey ; Did move her arms when I asked her to uncross them from her abdomen for examination). For me, she was moaning upon tactile stimuli, did not open eyes.
Psych: apparent dementia
Assessment and plan
#Change in mental status, duration likely unknown because staff noticed unresponsiveness this morning. I spoke with the son. Son visited her and noticed she was tired more than usual but she was verbal. No fever or chills. No
leukocytosis. Hemodynamically stable in the ER.
Urine drug screen is negative. CT of head/abdomen and pelvis did not show acute findings. Chest x-ray, no evidence of pneumonia or pneumothorax.
Possible worsening dementia/toxic metabolic encephalopathy.
Discussed with the son, agreed to do MRI of the brain. Heart monitor. Supportive care. Will do blood culture. Urine test did not show active infection.
#CODE STATUS, discussed with the son. DNR
Total time spent to see the patient, examine the patient, review data and lab result, discuss treatment plan with the son of the patient, ER doctor, nursing staff around 75 minutes
Original Note:
Family Physician
-
Family Physician: Dayana Aldrich, DO
Chief Complaint
-
Change in mental status
History of Present Illness
Patient is an 84 y/o female past medical history of vascular dementia, atrial fibrillation, chronic heart failure, hypothyroidism and pulmonary hypertension who presents with change in mental status. Patient resides at the [facility].
Staff called 911 as patient was more difficult to arouse this morning. Other history is limited to due to patient's dementia and current mental status.
Medical History
Past Medical History
Past Medical History: Reports Other
Additional Past Medical History:
Permanent Atrial Fibrillation
Chronic HFmrEF
Chronic Hypotension
Vascular Dementia
Hyperlipidemia
Chronic Lower Extremity Lymphedema
Pulmonary Hypertension
CKD Stage III
Left Renal Artery AV Fistula
Hypothyroidism
TIA/CVA
GI Bleed
Past Surgical History: Reports Other
Additional Past Surgical History:
Bilateral Knee Replacements
Left Hip ORIF
Right Shoulder ORIF
Right Wrist ORIF
Social History
Unable to obtain full social history at this time due to: Dementia
Living: Other ([facility])
Family History
Family History: Unable to Obtain
Allergies / Home Medications
Allergies reflects when Allergies were last updated in [employer].
Home Medications with original date entered in [employer]
Allergy/Medication List:
Allergies
Allergy/AdvReac Type Severity Reaction Status Date / Time
amiodarone [Amiodarone] Allergy Shortness Verified 09/09/24 10:23
of Breath
Home Medications
levothyroxine 88 mcg tablet 88 mcg PO DAILY Thyroid 07/13/20
bisacodyl 10 mg rectal suppository (Dulcolax (bisacodyl)) 10 mg OH DAILYPRN PRN if MOM ineffective, on day 5 of no BM 03/20/24
magnesium hydroxide 400 mg/5 mL oral suspension (Milk of Magnesia) 2,400 mg PO DAILYPRN PRN if no BM x 3 days, on day 4 of no BM 03/20/24
sodium phosphates 19 gram-7 gram/118 mL enema (Fleet Enema) 118 ml OH DAILYPRN PRN if dulcolax ineffective, on day 6 of no BM 03/20/24
atorvastatin 20 mg tablet 20 mg PO DAILY High Cholesterol 03/31/24
acetaminophen 500 mg tablet 500 mg PO TID Pain 11/26/24
albuterol sulfate 90 mcg/actuation aerosol inhaler 2 puff inhalation R Q4HPRN PRN sob 11/26/24
capsaicin 0.075 % topical cream 1 applic topical TID Pain 11/26/24
fluticasone furoate 100 mcg-vilanterol 25 mcg/dose inhalation powder (Breo Ellipta) 1 inh inhalation R DAILY Lung/Breathing Issues 11/26/24
loperamide 2 mg tablet 2 mg PO Q6HPRN PRN diarrhea 11/26/24
midodrine 2.5 mg tablet 2.5 mg PO BID Blood Pressure 11/26/24
ondansetron 4 mg disintegrating tablet 4 mg PO Q8HPRN PRN nausea 11/26/24
zinc oxide 22 % topical cream 1 applic topical DAILY lower leg venous ulcers 11/26/24
acetaminophen 325 mg tablet 650 mg PO Q4HPRN PRN mild pain/fever >100 12/13/24
collagenase clostridium histo. 250 unit/gram topical ointment (Santyl) 1 applic topical DAILY lower leg wounds 12/13/24
ipratropium 0.5 mg-albuterol 3 mg (2.5 mg base)/3 mL nebulization soln 3 ml inhalation BIDPRN PRN sob/wheezing 12/13/24
melatonin 3 mg tablet 6 mg PO HS 12/13/24
metoprolol tartrate 25 mg tablet 12.5 mg PO BID 12/13/24
mineral oil-hydrophil petrolat topical ointment 1 applic topical DAILY LE dry skin 12/13/24
torsemide 10 mg tablet 30 mg PO DAILY 12/13/24
tuberculin PPD 5 tub. unit/0.1 mL intradermal injection solution (Tubersol) 0.1 ml intradermal ONCE 12/13/24
Review of Systems
-
Unable to obtain full review of systems at this time due to: Dementia
Physical Exam
Vital Signs
Vital Signs
Temp Pulse Resp BP Pulse Ox
98.6 F 97 24 111/64 94
12/13/24 08:38 12/13/24 09:00 12/13/24 09:00 12/13/24 09:00 12/13/24 09:00
Physical Exam
General: Well Developed and Well Nourished
HEENT: Anicteric and Moist mucous membranes
Respiratory: Clear and Non Labored Respirations
Cardiac: S1/S2 and Irregular Rhythm; No Tachycardia
GI: Soft and Non Tender
Rectal: Deferred by Provider
Musculoskeletal: No Clubbing, No Cyanosis and Other (+1 pitting edema bilateral lower extremities)
Skin: Warm, Dry and Other (Bilateral lower extremities with dressing in place)
Neuro: Other (Opens eyes to name; Did move her arms when I asked her to uncross them from her abdomen for examination)
Laboratory Results
-
12/13/24 08:39
12/13/24 08:39
Laboratory Results
Total Bilirubin 1.4 mg/dl (0.2-1.3) H 12/13/24 08:39
AST 47 U/L (14-36) H 12/13/24 08:39
ALT 18 U/L (0-35) 12/13/24 08:39
Alkaline Phosphatase 186 U/L (38-126) H 12/13/24 08:39
Data Reviewed
-
CT Scan: Report Reviewed by me
Lab Data: Labs Reviewed by me
Old Records: Reviewed
Impression/Plan
-
Acute Change in Mental Status, unclear etiology
-Urinalysis, CXR and Abd/Pelvis CT without evidence of infection
-Check blood culture
-Check urine drug screen
-Check Brain MRI to evaluate for possible stroke as patient has a history of atrial fibrillation but is not on anticoagulation
-Keep NPO until mentation improves
Permanent Atrial Fibrillation
-Patient is not on anticoagulation
-Will use Lopressor IV for heart rate greater than 120 until able to resume metoprolol
Chronic HFmrEF
-Echo November 2024: Mildly reduced left ventricular systolic function with EF 50%.
-Diuretics on hold
-Monitor Daily Weights
Chronic Hypotension
-Resume midodrine when able to take oral meds
-Monitor blood closely
Vascular Dementia
-Monitor mental status - Per prior records patient only oriented to self and sometimes at
Pulmonary Hypertension
-Continue Pulmicort and Albuterol nebs in place of Breo
CKD Stage III
-Creatinine at baseline
Hypothyroidism
-Resume levothyroxine when able
DVT proph: SCDs
Code Status: DNR per SD paperwork
[2024-12-13 13:00] LABS: Amphetamines Negative (Negative); Barbiturates Negative (Negative); Benzodiazepines Negative (Negative); Buprenorphine Negative (Negative); Cocaine Negative (Negative); Marijuana Negative (Negative); Methadone Negative (Negative); Methamphetamines Negative (Negative); Opiates Negative (Negative); Phencyclidine Negative (Negative); Tricyclic Antidepressants Negative (Negative)
[2024-12-13] MEDS: ASPIRIN 300 MG RECTAL (13:14)
--- NOTE | 2024-12-13 17:00 | EDRN ---
Upon entering the room the patient is noted to have blood on her gown and hand. Patient removed her IV line from left arm. Bleeding is controlled. Patient has been changed into new gown and blood has been wiped from her hand/torso and arm. Patient
also noted to be the most responsive she has been since arrival. Patient still very confused but moans.
--- NOTE | 2024-12-13 17:12 | EDRN ---
Patient continues to moan but now speaking. Patient opening her eyes and asking questions. Patient asked what happened. Situation explained along with admission tot [facility]. Patient continues to moan and still seems confused.
[2024-12-13] MEDS: VENTOLIN NEBULES INH (17:46)
--- NOTE | 2024-12-13 18:30 | PTCARENOTE ---
Pt. unable to answer admission questions, no family at bedside. Dr. Zaragoza made aware pt. b/p 86/57. No new orders at this time.
[2024-12-13] MEDS: NSS 250 IV (18:40)
[2024-12-13] MEDS: D5/0.9% SODIUM CHLORIDE 1000 IV (19:26)
[2024-12-14] VITALS (8 sets, daily range): BP systolic 106–130; BP diastolic 61–73; O2SAT 96; BMI 26.4
[2024-12-14] MEDS: PULMICORT INH (01:11)
[2024-12-14] MEDS: VENTOLIN NEBULES INH (01:11)
[2024-12-14 06:15] LABS: Hematocrit 38.6 % (37.0-47.0); Mean Corp Hgb Conc. 31.1 g/dL (33.0-37.0); Mean Corpuscular Hgb 29.8 pg (27.0-31.0); Mean Corpuscular Volume 95.8 fL (81.0-99.0); Mean Platelet Volume 10.5 fL (7.4-10.4); Platelet Count 152 10^3/uL (130-400); Red Blood Cell Count 4.03 10^6/uL (4.20-5.40); Red Cell Dist. Width 16.8 % (11.5-14.5); White Blood Cell Count 4.8 10^3/uL (4.8-10.8)
[2024-12-14 06:37] LABS: ALT (SGPT) 21 U/L (0-35); AST (SGOT) 55 U/L (14-36); Albumin 3.3 g/dl (3.5-5.0); Alkaline Phosphatase 150 U/L (38-126); Blood Urea Nitrogen 33 mg/dl (7-17); Calcium 9.2 mg/dl (8.4-10.2); Carbon Dioxide 27 mmol/L (22-30); Chloride 109 mmol/L (98-107); Estimated Creatinine Clearance 45 ml/min; Glucose 97 mg/dl (70-99); HDL Cholesterol 47 mg/dl; LDL Cholesterol, Calculated 52 mg/dl; Magnesium 2.1 mg/dl (1.6-2.3); Sodium 144 mmol/L (135-145); Total Bilirubin 0.9 mg/dl (0.2-1.3); Total Cholesterol 112 mg/dl (50-199); Total Protein 6.1 g/dl (6.3-8.2); Triglyceride 67 mg/dl (10-149); Very Low Density Lipoprotein 13 mg/dl (0-30); eGFR > 60.00
[2024-12-14] MEDS: PULMICORT 0.5 MG INH (07:19)
[2024-12-14] MEDS: VENTOLIN NEBULES 2.5 MG INH ×2 (07:19→11:18)
[2024-12-14] MEDS: DESENEX/MITRAZOL/ZEASORB 1 APPLIC TOPICAL ×2 (08:06→21:55)
[2024-12-14] MEDS: ASPIRIN 300 MG RECTAL (08:07)
[2024-12-14] MEDS: D5/0.9% SODIUM CHLORIDE 1000 IV (08:09)
--- NOTE | 2024-12-14 08:58 | W.PN.HOSP.TC ---
Today's Communication/Plan
-
PT/OT/ Speech
Resume oral medications
Stop IVF
Assessment / Plan
Assessment / Plan
Physical Exam
General: not in respiratory distress
HEENT: Anicteric and Moist mucous membranes
Respiratory: limited but Clear and Non Labored Respirations
Cardiac: S1/S2 No Tachycardia
GI: Soft and Non Tender
Rectal: No bleeding
Musculoskeletal: No Clubbing, No Cyanosis and Other (+1 pitting edema bilateral lower extremities)
Skin: Warm, Dry and Other (Bilateral lower extremities with dressing in place)
Neuro: AAO to surroundings, following commands, Other (she opened eyes to name with Stacey ; Did move her arms when I asked her to uncross them from her abdomen for examination). For me, she was moaning upon tactile stimuli, did not open eyes.
Psych: apparent dementia
Assessment and plan
#Change in mental status, Improved with supportive care/ IVF.
Seems Toxic encephalopathy, possible related to recent vaccinations
She is awake, alert and non focal on exam
CT head no acute findings, c/w chronic changes/ infarct.
negative urine drug screen
Afebrile, normal WBC. Negative urine. CT A/P no acute findings. CXR no acute findings.
Resume oral medications
No need for MRI to avoid giving sedation
Permanent Atrial Fibrillation
-Patient is not on anticoagulation
- Resume Lopressor.
Chronic HFmrEF
-Echo November 2024: Mildly reduced left ventricular systolic function with EF 50%.
-Diuretics , no changes. Stop IVF
-Monitor Daily Weights
Chronic Hypotension
-Resume midodrine
Vascular Dementia
-No agitation noted, following commands. PT/OT/
Pulmonary Hypertension
-Continue Pulmicort and Albuterol nebs in place of Breo
CKD Stage IIIA
-Creatinine at baseline
Hypothyroidism
-Resume levothyroxine
#CODE STATUS, discussed with the son. DNR
Total time spent to see the patient, examine the patient, review data and lab result, discuss treatment plan with the patient, nursing staff around 55 minutes
Anticipated Discharge: Within 24 hours
Subjective/Interval History
-
Date of Service: December 14, 2024
No pain issues
Awake, alert
Objective Data
-
Labs:
Laboratory Results
12/14/24
05:56
WBC 4.8
Hgb 12.0
Hct 38.6
Plt Count 152
Sodium 144
Potassium 4.0
Chloride 109 H
Carbon Dioxide 27
BUN 33 H
Creatinine 0.8
Glucose 97
Calcium 9.2
Total Bilirubin 0.9
AST 55 H
ALT 21
Alkaline Phosphatase 150 H
Vital Signs:
Vital Signs
Temp Pulse Resp BP Pulse Ox
97.4 F 96 18 130/73 99
12/14/24 07:10 12/14/24 07:25 12/14/24 07:25 12/14/24 07:10 12/14/24 07:25
I&O
12/13/24 12/14/24 12/15/24
06:59 06:59 06:59
Intake Total 900 / 900
Output Total 200 / 200
Balance 700 / 700
[2024-12-14 10:52] LABS: Glycohemoglobin (HgbA1c) 5.7 % (4.0-5.6)
--- NOTE | 2024-12-14 12:27 | CM ---
Addendum entered by RICHELLE Almonte 12/14/24 13:15:
Attending updated.
Original Note:
Spoke with attending who stated that patient can be medically cleared for discharge. Placed a call to [facility] and spoke with an RN named, Danyelle who stated that [facility] (about
two weeks ago). She stated that patient would have to return there. Will need to speak with Marge in admissions in the am and send new referral.
Spoke with patient's son who is cathie. He confirmed that he would like for patient to go to [facility] upon discharge. OBS status explained to him, now on chart. He expressed understanding.
Plan: Case management will continue to follow and assist with discharge planning. Back to SNF pending acceptance at [facility]
--- NOTE | 2024-12-14 13:19 | PTOTSP ---
Speech Pathology
Clinical Swallow Evaluation
84F with admission for change in mental status p/w s/s of oral dysphagia characterized by mild oral residue with regular texture this date. Slightly disorganized oral feeding observed. Unable to r/o silent aspiration at bedside. Aspiration risk is
increased 2/2 AMS, current workup for possible CVA/TIA, and multiple comorbidities (dementia, CHF, pulmonary HTN).
Recommend:
1. Continue with soft and bite sized solids (IDDSI 6), thin liquids
2. Meds whole vs crushed in puree
3. Partial feeding assistance/supervision
4. SHORER service to follow up re: to assess diet level tolerance and provide dysphagia tx at the acute care level
[2024-12-14] MEDS: ProAmatine 2.5 MG PO (16:28)
[2024-12-14] MEDS: TYLENOL 500 MG PO ×2 (16:28→21:57)
[2024-12-14] MEDS: LOPRESSOR 12.5 MG PO (19:38)
[2024-12-14] MEDS: SYMBICORT 80/4.5 MCG INHALER 2 PUFF INH (20:59)
[2024-12-15 03:20] VITALS: BP 107/68
[2024-12-15] MEDS: SYNTHROID 88 MCG PO (04:30)
[2024-12-15 05:36] VITALS: BMI 26.6
[2024-12-15 06:22] LABS: Hematocrit 39.5 % (37.0-47.0); Hemoglobin 11.8 g/dL (12.0-16.0); Mean Corp Hgb Conc. 29.9 g/dL (33.0-37.0); Mean Corpuscular Hgb 29.6 pg (27.0-31.0); Mean Platelet Volume 10.4 fL (7.4-10.4); Platelet Count 160 10^3/uL (130-400); Red Blood Cell Count 3.99 10^6/uL (4.20-5.40); Red Cell Dist. Width 16.2 % (11.5-14.5); White Blood Cell Count 5.7 10^3/uL (4.8-10.8)
[2024-12-15 06:58] LABS: Blood Urea Nitrogen 33 mg/dl (7-17); Calcium 9.3 mg/dl (8.4-10.2); Carbon Dioxide 27 mmol/L (22-30); Chloride 106 mmol/L (98-107); Estimated Creatinine Clearance 40 ml/min; Glucose 63 mg/dl (70-99); Potassium 4.4 mmol/L (3.5-5.1); Sodium 141 mmol/L (135-145); eGFR > 60.00
[2024-12-15] MEDS: SYMBICORT 80/4.5 MCG INHALER 2 PUFF INH (07:56)
[2024-12-15 07:59] VITALS: BP 122/77
[2024-12-15] MEDS: LOPRESSOR 12.5 MG PO (08:18)
[2024-12-15] MEDS: LOW STRENGTH ASPIRIN 81 MG PO (08:18)
[2024-12-15] MEDS: DEMADEX 30 MG PO (08:19)
[2024-12-15] MEDS: ProAmatine PO (08:19)
[2024-12-15] MEDS: TYLENOL 500 MG PO (08:20)
[2024-12-15] MEDS: DESENEX/MITRAZOL/ZEASORB 1 APPLIC TOPICAL (08:20)
[2024-12-15] MEDS: FLUSH (NSS) 1 FLUSH IV (08:31)
--- NOTE | 2024-12-15 09:14 | WOUNDNOTE ---
R CALF/ANKLE (MEDIAL)
--- NOTE | 2024-12-15 09:14 | WOUNDNOTE ---
ANDREA (R ANTERIOR, L MEDIAL)
--- NOTE | 2024-12-15 09:17 | WOUNDNOTE ---
L ANKLE (POSTERIOR MEDIAL)
--- NOTE | 2024-12-15 09:20 | WOUNDNOTE ---
[facility] RN note: Patient admitted with change in mental status. Patient admitted from [facility].
See H&P for complete history.
PMH: vascular dementia, a fib, CHF, pulmonary HTN, lymphedema, CKD3, TIA/CVA, AV fistula, GI bleed, bilateral knee replacement, L hip ORIF, R shoulder ORIF, R wrist ORIF.
Wound Location and type/assessment: Patient admitted with: dermal and full thickness to subcutaneous layer venous stasis ulcers, pink with yellow fibrin. Yellow/julian drainage. Skin dry with mild red skin on Le's. +Pedal pulses. 11/27/24 RLE venous
Doppler negative for DVT. 09/14/23 R AQUILES 1.49, R TBI .72; L AQUILES 1.62, L TBI .63, multiphasic. Tamera MASD. R breast yeast rash. Desenex on order.
Appetite: good.
Pressure redistribution devices in place: [employer]. Patient can turn in bed slowly. Air chair cushion under heels. JOSE Rodriguez to coordinate switching bed to an air mattress. t/c aDvey [employer] who will bring up an air bed.
Plan: LE dressings changed. Patient incontinent of urine. Tamera care given. Patient pulled up in bed and turned to L semi side lying position with help from DREA Sarmiento. Discussed with JOSE Rodriguez.
Confirmed orders with Dr. Blevins including knee high Isael wraps.
Care plan to be updated and will follow as needed.
Recommend follow up at wound care center upon discharge.
--- NOTE | 2024-12-15 10:08 | CM ---
PT OT indicate need for SNF at [place].
Pt is under observation .
TT Gina S [facility] she qualifies for [facility] waiver program
She lives at [facility] [place] [facility] not part of [facility] waiver.
will offer [facility] waiver SNF .
PLAN To [facility] participating SNF
--- NOTE | 2024-12-15 11:17 | W.PN.HOSP.TC ---
Today's Communication/Plan
-
dispo planning
Assessment / Plan
Assessment / Plan
Assessment and plan
#Change in mental status, Improved with supportive care/ IVF.
Seems Toxic encephalopathy, possible related to recent vaccinations
She is awake, alert and non focal on exam, confused in setting of dementia (and focused on new b/l rajani wraps)
CT head no acute findings, c/w chronic changes/ infarct.
negative urine drug screen
Afebrile, normal WBC. Negative urine. CT A/P no acute findings. CXR no acute findings.
Resume oral medications
No need for MRI to avoid giving sedation
Permanent Atrial Fibrillation
-Patient is not on anticoagulation
- Resume Lopressor.
Chronic HFmrEF
-Echo November 2024: Mildly reduced left ventricular systolic function with EF 50%.
-Diuretics , no changes. Stop IVF
-Monitor Daily Weights
Chronic Hypotension
-Resume midodrine
Vascular Dementia
-No agitation noted, following commands. PT/OT - SNF recommended
-confused this morning
Pulmonary Hypertension
-Continue Pulmicort and Albuterol nebs in place of Breo
CKD Stage IIIA
-Creatinine at baseline
Hypothyroidism
-Resume levothyroxine
#CODE STATUS, discussed with the son. DNR
Total time spent to see the patient, examine the patient, review data and lab result, discuss treatment plan with the patient, nursing staff around 55 minutes
Anticipated Discharge: Within 24 hours
Subjective/Interval History
-
Date of Service: December 15, 2024
a bit confused this morning but awake and alert
Objective Data
-
Labs:
Laboratory Results
12/15/24
05:42
WBC 5.7
Hgb 11.8 L
Hct 39.5
Plt Count 160
Sodium 141
Potassium 4.4
Chloride 106
Carbon Dioxide 27
BUN 33 H
Creatinine 0.9
Glucose 63 L
Calcium 9.3
Vital Signs:
Vital Signs
Temp Pulse Resp BP Pulse Ox
97.4 F 87 18 122/77 95
12/15/24 07:59 12/15/24 08:18 12/15/24 07:59 12/15/24 08:19 12/15/24 07:59
I&O
12/14/24 12/15/24 12/16/24
06:59 06:59 06:59
Intake Total 900 / 900 1305 / 1305
Output Total 200 / 200
Balance 700 / 700 1305 / 1305
Review of Systems
-
History Source: Patient
All other systems: Reviewed and negative
Physical Exam
-
General: No Apparent Distress, Comfortable and Other (Pleasant, frail elderly female)
HEENT: Normocephalic, Atraumatic and Moist Mucous Membranes
Respiratory: Clear to Auscultation and Non Labored Respirations
Cardiac: S1/S2 and Irregular Rhythm; Negative Murmur, Rub, JVD or Gallop
GI: Soft, Nontender, Nondistended and Normal Bowel Sounds
Genito-urinary: No Costovertebral Tender and Other (No suprapubic tenderness or fullness)
Musculoskeletal: No Clubbing, No Cyanosis and No Edema
Skin: Warm and Dry; Negative Rash or Jaundice
Neuro: Nonfocal/Grossly Intact and Central Nerve's Intact
Psych: Confused
Data Reviewed
-
Diagnostic Radiology: Report Reviewed by me
Labs: Labs Reviewed by me
[2024-12-15 11:41] VITALS: BP 103/67
--- NOTE | 2024-12-15 13:03 | CM ---
[facility]d indicated pt ready for discharge.
PT OT indicated SNF.
Pt changed form Observation to inpatient .
Spoke with Marge Nj pt had 3 day inpatient stay in last 30 days.
Spoke with son Siva saldivar reviewed . He requested she return to [facility] .
Son aware of dc to [facility] . [facility] reviewed with son and he stated understaging.
Ambulance requested Medical nec form completed.
[facility]
report [phone]
fax [phone]
PLAN To [facility] today
--- NOTE | 2024-12-15 13:15 | W.DS.TRANS ---
DC Summary - Warp Dresser
-
Discharge Instructions:
Discharge Diagnosis/Procedures toxic metabolic encephalopathy possible post
vaccination response
Additional Diets IDDSI 6 - soft and bite sized
Activity As tolerated
Driving Restrictions No driving
Bathing Restrictions None
Instructions:
Stand-Alone Forms:
Changes to Home Medications: Yes
Discharge Medications:
DC Medications w/original date entered in [facility]
levothyroxine 88 mcg tablet 88 mcg PO DAILY Thyroid 07/13/20
bisacodyl 10 mg rectal suppository (Dulcolax (bisacodyl)) 10 mg VT DAILYPRN PRN if MOM ineffective, on day 5 of no BM 03/20/24
magnesium hydroxide 400 mg/5 mL oral suspension (Milk of Magnesia) 2,400 mg PO DAILYPRN PRN if no BM x 3 days, on day 4 of no BM 03/20/24
sodium phosphates 19 gram-7 gram/118 mL enema (Fleet Enema) 118 ml VT DAILYPRN PRN if dulcolax ineffective, on day 6 of no BM 03/20/24
atorvastatin 20 mg tablet 20 mg PO DAILY High Cholesterol 03/31/24
acetaminophen 500 mg tablet 500 mg PO TID Pain 11/26/24
albuterol sulfate 90 mcg/actuation aerosol inhaler 2 puff inhalation R Q4HPRN PRN sob 11/26/24
capsaicin 0.075 % topical cream 1 applic topical TID Pain 11/26/24
fluticasone furoate 100 mcg-vilanterol 25 mcg/dose inhalation powder (Breo Ellipta) 1 inh inhalation R DAILY Lung/Breathing Issues 11/26/24
loperamide 2 mg tablet 2 mg PO Q6HPRN PRN diarrhea 11/26/24
midodrine 2.5 mg tablet 2.5 mg PO BID Blood Pressure 11/26/24
ondansetron 4 mg disintegrating tablet 4 mg PO Q8HPRN PRN nausea 11/26/24
zinc oxide 22 % topical cream 1 applic topical DAILY lower leg venous ulcers 11/26/24
acetaminophen 325 mg tablet 650 mg PO Q4HPRN PRN mild pain/fever >100 12/13/24
collagenase clostridium histo. 250 unit/gram topical ointment (Santyl) 1 applic topical DAILY lower leg wounds 12/13/24
ipratropium 0.5 mg-albuterol 3 mg (2.5 mg base)/3 mL nebulization soln 3 ml inhalation BIDPRN PRN sob/wheezing 12/13/24
melatonin 3 mg tablet 6 mg PO HS 12/13/24
metoprolol tartrate 25 mg tablet 12.5 mg PO BID 12/13/24
mineral oil-hydrophil petrolat topical ointment 1 applic topical DAILY LE dry skin 12/13/24
torsemide 10 mg tablet 30 mg PO DAILY 12/13/24
collagenase clostridium histo. 250 unit/gram topical ointment (Santyl) 1 applic topical DAILY #15 grams 12/15/24
miconazole nitrate 2 % topical powder (Miconazorb AF) 1 applic topical BID #85 grams 12/15/24
white petrolatum 42 % topical ointment (Hydrophor) 1 applic topical DAILY #100 grams 12/15/24
Home Medication Changes
addition of miconazole; collagenase for wound care
Pending Results: No
--- NOTE | 2024-12-15 13:42 | W.DCSUMMARY ---
Discharge Summary
Discharge Data
Date of Admission: 12/13/24
Date of Discharge: 12/15/24
-
Pending Results: No
Hospital Course
Discharging Physician : Dr. Darline Blevins
Disposition : SNF
Primary care physician : Dr. Dayana Aldrich
Principal Discharge diagnosis : toxic metabolic encephalopathy post vaccination
Hospital Course :
Ms. Herlinda Perales is a 84 yo woman with hx vascular dementia, atrial fibrillation, heart failure, hypothyroidism presents to the ER with change in mentation/somnolence. She had received both Influenza and Covid-19 vaccinations recently. Patient
afebrile on arrival with pulse 111, bP 111/64. No leukocytosis on labs. Ua without evidence of infection. Head CT and CXR with stable chronic findings. Abdomen/Pelvis CT without acute disease, evidence of anasarca. Initially plan was for MRI but
patient's mentation returned to baseline on HD 1. Therefore, leading diagnosis was TME post vaccinations. She was eating and drinking well prior to DC. Seen by wound care for LE wounds with recommendations placed. Aside from wound care, no
changes made to home medications. She is discharged to SNF.
Time spent on discharge was 31 minutes.
Important imaging findings :
HEAD CT 12/13/24
IMPRESSION:
Stable chronic findings, as described. No evidence to suggest acute large vascular territory transcortical infarct, no acute intracranial hemorrhage.
CXR 12/13/24
Findings/impression:
Stable marked cardiomegaly. Relatively stable pulmonary vascular prominence, which could represent chronic passive venous congestion versus persistent or recurrent congestion. No evidence of pneumonia. No pneumothorax. No radiographically
demonstrable pleural effusion.
Abdomen/Pelvis CT 12/13/24
IMPRESSION:
Small right and trace left pleural effusion. Trace pericardial effusion. Marked cardiomegaly.
Fatty infiltration of liver.
Mild ascites.
Marked anasarca.
Stable left renal arterial venous fistula. No hydronephrosis or obstructive uropathy.
Mild diverticulosis. No evidence of acute diverticulitis. Mild colonic fecal burden. No evidence of bowel obstruction.
Normal appendix.
Procedure findings :
Discharge Plan
-
Patient Disposition: Care Home/SNF
Discharge Diagnosis/Procedures: toxic metabolic encephalopathy possible post vaccination response
Additional Diets: IDDSI 6 - soft and bite sized
Activity: As tolerated
Driving Restrictions: No driving
Bathing Restrictions: None
Activity Restrictions/Additional Instructions:
Wound Care Instructions
Le's-clean with Vashe wound cleanser, Aquaphor ointment to dry skin le's, Santyl to yellow slough, adaptic, ABD pad, secure with Dusty, change daily and prn drainage (add alginate after adaptic prn large amount of drainage).
Miconazole powder to breast folds, jama skin, affected areas bid.
Barrier ointment to jama skin bid.
Bilateral knee high Isael wrap as tolerated; may remove q hs; re-wrap daily.
Evaluate for an Air mattress
Turning schedule
Elevate heels off bed with pillow and air chair cushion.
Pressure redistributing chair cushion (i.e. Air chair cushion).
Follow up at wound care center call for an appointment.
Referrals:
Dayana Aldrich DO [Family Provider] - in less than 1 week
Prescriptions:
New
miconazole nitrate [Miconazorb AF] 2 % Powder
1 applic topical BID Qty: 85 0RF
white petrolatum [Hydrophor] 42 % Ointment
1 applic topical DAILY Qty: 100 0RF
Santyl 250 unit/gram Ointment
1 applic topical DAILY Qty: 15 0RF
Continued
levothyroxine 88 MCG tablet
88 mcg PO DAILY
magnesium hydroxide [Milk of Magnesia] 400 mg/5 mL Suspension
2,400 mg PO DAILYPRN PRN (Reason: if no BM x 3 days, on day 4 of no BM)
bisacodyl [Dulcolax (bisacodyl)] 10 mg Suppository
10 mg AK DAILYPRN PRN (Reason: if MOM ineffective, on day 5 of no BM)
Fleet Enema 19-7 gram/118 mL Enema
118 ml AK DAILYPRN PRN (Reason: if dulcolax ineffective, on day 6 of no BM)
atorvastatin 20 mg Tablet
20 mg PO DAILY
loperamide 2 mg Tablet
2 mg PO Q6HPRN PRN (Reason: diarrhea)
capsaicin 0.075 % Cream
1 applic TOPICAL TID
acetaminophen 500 mg Tablet
500 mg PO TID
midodrine 2.5 mg Tablet
2.5 mg PO BID
albuterol sulfate 90 mcg/actuation Hfa Aerosol Inhaler
2 puff INHALATION R Q4HPRN PRN (Reason: sob)
ondansetron 4 mg Tablet,Disintegrating
4 mg PO Q8HPRN PRN (Reason: nausea)
fluticasone furoate-vilanterol [Breo Ellipta] 100-25 mcg/dose Blister With Device
1 inh INHALATION R DAILY
zinc oxide 22 % Cream
1 applic TOPICAL DAILY
acetaminophen 325 mg Tablet
650 mg PO Q4HPRN PRN (Reason: mild pain/fever >100)
ipratropium-albuterol 0.5 mg-3 mg(2.5 mg base)/3 mL Solution For Nebulization
3 ml INHALATION BIDPRN PRN (Reason: sob/wheezing)
torsemide 10 mg Tablet
30 mg PO DAILY
melatonin 3 mg Tablet
6 mg PO HS
mineral oil-hydrophil petrolat Ointment
1 applic TOPICAL DAILY
Santyl 250 unit/gram Ointment
1 applic TOPICAL DAILY
metoprolol tartrate 25 mg Tablet
12.5 mg PO BID
Discontinued
Tubersol 5 tub. unit /0.1 mL Solution
0.1 ml INTRADERMAL ONCE
Rx Instructions:
given 12/11/24, read results day 3
Discharge Orders:
Discharge Patient (As Directed); Ordered 12/15/24
Ordered By: Darline Blevins
Discharge Date and Time
Print Language: KITTITIAN
== END 2024-12-15 15:11 ==
LOC: 4 EAST ACU 13:43
PROVIDERS: Emergency Medicine; Physician Assistant Medical; ADMITTING PHYSICIAN Internal Medicine; ATTENDING PHYSICIAN Student in an Organized Health Care Education/Training Program; EMERGENCY PHYSICIAN Student in an Organized Health Care Education/Training Program; FAMILY PHYSICIAN Family Medicine
DX: G92.8 Other toxic encephalopathy (principal); R06.02 Shortness of breath; I50.22 Chronic systolic (congestive) heart failure; I95.89 Other hypotension; F01.50 Vascular dementia, unspecified severity, without behavioral disturbance, psychotic disturbance, mood disturbance, and anxiety; E03.9 Hypothyroidism, unspecified; Z66 Do not resuscitate; I27.20 Pulmonary hypertension, unspecified; I48.21 Permanent atrial fibrillation; N18.31 Chronic kidney disease, stage 3a
CPT/HCPCS: 70450; 71045; 74177; 80048; 80053; 80061; 80306; 81003; 81015; 83036; 83735; 84443; 85025; 85027; 92526; 92610; 93005; 94640; 97163; 97167; 99285; G0378; Q9967

== ENCOUNTER → 2025-01-10 17:18 | Outpatient (REF) | payer MEDICARE, OTHER, SELFPAY ==
[2025-01-10 17:47] LABS: Urine Albumin 2+ (Neg - Trace); Urine Bilirubin Negative (Negative); Urine Character Slightly Cloudy (Clear); Urine Color Yellow; Urine Glucose Negative (Negative); Urine Ketone Negative (Negative); Urine Leukocyte 3+ (Negative); Urine Nitrite Positive (Negative); Urine Occult Blood 2+ (Negative); Urine Urobilinogen Negative (Neg - 1+)
[2025-01-10 17:58] LABS: Urine Bacteria Moderate (Negative); Urine Red Blood Cell 0-2 /HPF (0-2); Urine Squamous Cell 0-2 /LPF (Few); Urine Triple Phosphate Crystal Present
== END ==
LOC: OLABP 17:18
PROVIDERS: ATTENDING PHYSICIAN Family Medicine
DX: N39.0 Urinary tract infection, site not specified (principal)
CPT/HCPCS: 81003; 81015; 87086; 87088

== ENCOUNTER 2025-01-15 20:17 | Emergency (ER) | payer MEDICARE, OTHER, SELFPAY ==
[2025-01-15 20:21] VITALS: BP 107/68
--- NOTE | 2025-01-15 20:41 | EDRN ---
When EMS arrived to [facility], pt. was on 4L NC, pt. arrived on RA and was hypoxic on RA. Pt. states she wears o2 at night, however, she is not a great historian.
[2025-01-15 21:00] VITALS: BP 138/84
--- NOTE | 2025-01-15 21:46 | EDRN ---
This RN spoke w/ residential, who states that pt. does wear oxygen 2-4L PRN.
--- NOTE | 2025-01-15 22:02 | ED.MUSCINJ ---
HPI-Injury
General
Chief Complaint: Musculo-Skeletal Complaint
Source: ambulance crew and half-way
Exam Limitations: none
Time Seen by Provider: 01/15/25 20:19
Nursing documentation reviewed up to this point in time: agreed with
History of Present Illness-Injury
Is this injury a work related problem?: No
Is pt an associate of [facility]?: No
Initial Injury comments:
Patient sent to ED from [place] for injury to left wrist.. Unwitnessed injury. She had outpatient xrays which were read as fracture to distal radius and ulnar styloid. Brought to ED by EMS for eval.
Past History
Past History
ED Past Medical History: Arrthythmia, CHF, CVA, GERD, Hypothyroidism and Other
ED Past Surgical History: Gynecological (Hysterectomy)
Social History
Tobacco: Non-smoker
Alcohol: Occasional
Drug: None
Personal:
Living: alone
Employment: Retired
Review of Systems
Review of Systems
Allergies reviewed?: Yes
All Other Systems: ROS reviewed and negative except as documented in HPI and ROS
Constitutional: Reports no symptoms
EENT: Reports no symptoms
Respiratory: Reports no symptoms
Cardiac: Reports no symptoms
ABD/GI: Reports no symptoms
: Reports no symptoms
Musculoskeletal: Reports other (left wrist deformity)
Skin: Reports no symptoms
Neurological: Reports no symptoms
Psychiatric: Reports no symptoms
Musculoskeletal Injury Exam
Musculoskeletal Injury Exam
Left Wrist:
Pain with Movement?: Mild
Tender to palpation?: None
Soft tissue swelling?: None
External deformity and angulation?: None
Joint effusion?: None
Contusion?: None
Hematoma-local bleeding into tissue?: Mild
Strain- Sprain- Tear (Connective tissue injury)?: None
Crepitus with movement?: No
Joint instability?: No
Malalignment/deformity?: No
Range of motion: Limited
Distal skin color and temperature: normal-warm & good color
Capillary Refill: normal
Normal distal neurovascular exam?: Yes
Peripheral Pulses: radial (left): 3+
Phy Exam
General Physical Exam
General Presentation: well appearing and no apparent distress
General age: appears stated age
General Skin: warm and dry
General Habitus: normal
General Mental: alert
Neurological Exam
Neurological Exam: alert, speech normal and confused (baseline)
Musculoskeletal Exam
Musculoskeletal Exam: neuro vasc intact
Skin Exam
Skin Exam: normal color, warm/dry and no rash
Psychiatric Exam
Psychiatric Exam: normal mood/affect
Injury Course
Orders/Labs/Results
Orders:
Orders
01/15/25 20:24
Shoulder, Left, Trauma CR [CR Shoulder, Trauma - Left] Urgent
Comment:
Reason For Exam: fall
Wrist, Left 3 Views CR [CR Wrist - Left Min 3 Views] Urgent
Comment:
Reason For Exam: Trauma
*Radiology
Radiology exam reviewed: radiology read reviewed
*Pulse Oximetry
Patient hypoxic: no
*Critical Care Note
Total Time (30-74mins, 75-104mins- exclusive of procedures): Not Applicable
Update Note
Update Note:
Xray of wrist repeated here tonight. COmpared to xray of 09/06. SHe had a new fx of her wrist in August. Tonights xrays are unchanged. Calcification of bone noted, confirming this is an old fracture. No acute findings tonight. She will be
discharged back to half-way [facility].
ED Attending Note
-
Portions of this chart may have been created with voice recognition software.� Occasional wrong word or��sound alike� substitutions may have occurred due to the inherent limitations of voice recognition software.
Discharge Plan
Departure
Patient Disposition: Home (Routine Discharge)
Date of Disposition: 01/15/25
Time of Disposition: 22:08
Patient with high blood pressure during this ER visit?: No
Condition: Good
Covid-19: Not Applicable
Discharge Problem:
Deformity of wrist
Instructions: General
Prescriptions:
No Action
levothyroxine 88 MCG tablet
88 mcg PO DAILY
magnesium hydroxide [Milk of Magnesia] 400 mg/5 mL Suspension
2,400 mg PO DAILYPRN PRN (Reason: if no BM x 3 days, on day 4 of no BM)
bisacodyl [Dulcolax (bisacodyl)] 10 mg Suppository
10 mg IN DAILYPRN PRN (Reason: if MOM ineffective, on day 5 of no BM)
Fleet Enema 19-7 gram/118 mL Enema
118 ml IN DAILYPRN PRN (Reason: if dulcolax ineffective, on day 6 of no BM)
atorvastatin 20 mg Tablet
20 mg PO DAILY
loperamide 2 mg Tablet
2 mg PO Q6HPRN PRN (Reason: diarrhea)
capsaicin 0.075 % Cream
1 applic TOPICAL TID
acetaminophen 500 mg Tablet
500 mg PO TID
midodrine 2.5 mg Tablet
2.5 mg PO BID
albuterol sulfate 90 mcg/actuation Hfa Aerosol Inhaler
2 puff INHALATION R Q4HPRN PRN (Reason: sob)
ondansetron 4 mg Tablet,Disintegrating
4 mg PO Q8HPRN PRN (Reason: nausea)
fluticasone furoate-vilanterol [Breo Ellipta] 100-25 mcg/dose Blister With Device
1 inh INHALATION R DAILY
zinc oxide 22 % Cream
1 applic TOPICAL DAILY
acetaminophen 325 mg Tablet
650 mg PO Q4HPRN PRN (Reason: mild pain/fever >100)
ipratropium-albuterol 0.5 mg-3 mg(2.5 mg base)/3 mL Solution For Nebulization
3 ml INHALATION BIDPRN PRN (Reason: sob/wheezing)
torsemide 10 mg Tablet
30 mg PO DAILY
melatonin 3 mg Tablet
6 mg PO HS
mineral oil-hydrophil petrolat Ointment
1 applic TOPICAL DAILY
Santyl 250 unit/gram Ointment
1 applic TOPICAL DAILY
metoprolol tartrate 25 mg Tablet
12.5 mg PO BID
miconazole nitrate [Miconazorb AF] 2 % Powder
1 applic topical BID Qty: 85 0RF
white petrolatum [Hydrophor] 42 % Ointment
1 applic topical DAILY Qty: 100 0RF
Santyl 250 unit/gram Ointment
1 applic topical DAILY Qty: 15 0RF
Referrals:
Dayana Aldrich DO [Family Provider, General]
Activity Restrictions/Additional Instructions:
Left wrist was re-xrayed tonight in ED, compared to xray of 09/09/24. No new fracture. Deformity tonight is now healed deformity/fracture from August. No new injuries were noted.
Interventions
Interventions:
*Risk Screen - Suicide Last Done: 01/15/25 20:21
*General Assessment Last Done: 01/15/25 20:21
*Neglect/Abuse Screening Last Done: 01/15/25 20:21
*ED- Fall Risk Assessment Last Done: 01/15/25 20:21
*ED COVID-19 Vaccine History Last Done: 01/15/25 20:21
ED-Musculoskeletal Assessment Last Done: 01/15/25 20:42
Discharge Date and Time
Print Language: SPANISH
[2025-01-16 00:44] VITALS: BP 128/82
== END 2025-01-16 01:28 | disposition home or self-care (01) ==
LOC: EMR 20:17
PROVIDERS: EMERGENCY PHYSICIAN Emergency Medicine; FAMILY PHYSICIAN Family Medicine
DX: S52.502D Unspecified fracture of the lower end of left radius, subsequent encounter for closed fracture with routine healing (principal); X58.XXXD Exposure to other specified factors, subsequent encounter
CPT/HCPCS: 99283; 73030; 73110